=== PATIENT | female | born 2000 | race Caucasian/White ===

== ENCOUNTER 2020-10-10 17:58 | Emergency (ER) | payer OTHER, SELFPAY ==
--- OUTSIDE RECORDS SUMMARY | 2020-10-10 18:00 | XMS REPORT | Continuity of Care Document ---
:2000 Author Organization [facility] t Address [address] [place] [address] Care Team Providers Name Role Phone Lab, Fam Pob I Attending Clinician Unavailable Doctor Unassigned, Name Attending Clinician Unavailable Problems This patient has no known problems. Allergies, Adverse Reactions, Alerts This patient has no known allergies or adverse reactions. Medications This patient has no known medications. Procedures This patient has no known procedures. Encounters Start End Encounter Admission Attending Care Care Encounter Source Date/Time Date/Time Type Type Clinicians Facility Department ID 2020-03-28 2020-03-28 Laboratory Lab, [facility] [id number] 13:39:47 13:59:47 Only Fam Pob I Health [id number] [place] [id number] [place] [phone] nal [address] 2020-03-28 2020-03-28 Letter Doctor OREN [id number] 00:00:00 00:00:00 (Out) UnassignedGARY [id number] [place] [facility] [id number] [id number] Results This patient has no known results.
[2020-10-10 20:41] LABS: Urine Blood Negative (Negative); Urine Glucose Negative (Negative); Urine Protein Negative (Negative); Urine Specific Gravity 1.025 (1.005-1.030)
[2020-10-10 20:57] LABS: Absolute Lymphocytes (CBC) 2.3 K/uL (0.7-4.9); Basophils % 0.7 % (0-1.3); Hematocrit 40.1 % (36.0-45.0); Lymphocytes % 35.7 % (15.3-44.8); MPV 7.4 fL (7.6-11.3); RBC Red Blood Cell Count 4.57 M/uL (3.86-4.86)
[2020-10-10 21:06] LABS: Barbiturates NEGATIVE (NEGATIVE); Benzodiazepines NEGATIVE (NEGATIVE); Cocaine NEGATIVE (NEGATIVE); METHAMPHETAM NEGATIVE (NEGATIVE); Methadone NEGATIVE (NEGATIVE); Opiates NEGATIVE (NEGATIVE); Phencyclidine NEGATIVE (NEGATIVE); THC Cannibis NEGATIVE (NEGATIVE)
[2020-10-10 21:07] LABS: Protime INR 1.02
--- NOTE | 2020-10-10 21:15 | RAD REPORT ---
EXAM DESCRIPTION: RAD - Chest Single View - 10/10/2020 9:03 pm CLINICAL HISTORY: CHEST PAIN Chest pain. COMPARISON: No comparisons FINDINGS: Portable technique limits examination quality. The lungs are grossly clear. The heart is upper limit normal in size. No displaced fractures. IMPRESSION: No acute intrathoracic process suspected.
[2020-10-10 21:23] LABS: ALT/SGPT 27 U/L (12-78); AST/SGOT 17 U/L (15-37); Albumin 3.8 g/dL (3.4-5.0); Alkaline Phosphatase 92 U/L (45-117); BUN Blood Urea Nitrogen 9 mg/dL (7-18); Bicarbonate 24 mmol/L (21-32); Bilirubin Direct < 0.1 mg/dL (0-0.2); Bilirubin Total 0.3 mg/dL (0.2-1.0); Glucose Level 94 mg/dL (74-106); Magnesium 2.4 mg/dL (1.8-2.4); NT PRO-BNP 32 pg/mL (<125); Potassium 3.5 mmol/L (3.5-5.1); Protein, Total 7.4 g/dL (6.4-8.2); Sodium Level 140 mmol/L (136-145); Troponin (Emerg Dept Use Only) < 0.02 ng/mL (0.0-0.045)
--- NOTE | 2020-10-10 21:53 | EDPHYS ---
Physician Documentation [facility] Name: Melany Corrigan Age: 20 yrs Sex: Female : 2000 Arrival Date: 10/10/2020 Time: 17:59 Bed 8 Private MD: ED Physician Jose Vergara HPI: 10/10 20:24 This 20 yrs old Female presents to ER via Ambulatory with complaints of Chest pm1 Pain, Irregular Pulse, Nausea. 20:24 The patient presents with a history of irregular heart beat. Context: The symptoms pm1 occur without known cause. Onset: The symptoms/episode began/occurred 2 day(s) ago. Duration: The patient or guardian reports multiple episodes, the episodes last approximately 5 second(s). Modifying factors: The symptoms are aggravated by nothing. The symptoms are alleviated by nothing. Associated signs and symptoms: Pertinent positives: chest pain, nausea, Pertinent negatives: cough, fever, near-syncope, vomiting. Severity of symptoms: in the emergency department the symptoms are unchanged. The patient has not experienced similar symptoms in the past. It is unknown whether or not the patient has recently seen a physician. 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 - Social history:: Smoking status: Patient denies any tobacco usage or history of. ROS: 20:24 Constitutional: Negative for fever, chills, and weight loss. pm1 20:24 Respiratory: Negative for shortness of breath, cough, wheezing, and pleuritic chest pain. 20:24 Back: Negative for injury and pain, : Negative for injury, bleeding, discharge, and swelling, MS/Extremity: Negative for injury and deformity, Skin: Negative for injury, rash, and discoloration, Neuro: Negative for headache, weakness, numbness, tingling, and seizure. 20:24 Cardiovascular: Positive for chest pain, palpitations. 20:24 Abdomen/GI: Positive for nausea, Negative for abdominal pain, vomiting, diarrhea. Exam: 20:24 Constitutional: This is a well developed, well nourished patient who is awake, alert, pm1 and in no acute distress. Head/Face: Normocephalic, atraumatic. Chest/axilla: Normal chest wall appearance and motion. Nontender with no deformity. No lesions are appreciated. 20:24 Back: No spinal tenderness. No costovertebral tenderness. Full range of motion. Skin: Warm, dry with normal turgor. Normal color with no rashes, no lesions, and no evidence of cellulitis. MS/ Extremity: Pulses equal, no cyanosis. Neurovascular intact. Full, normal range of motion. 20:24 Cardiovascular: Exam negative for acute changes, Rate: normal, Rhythm: regular, Pulses: no pulse deficits are appreciated, Heart sounds: normal. 20:24 Respiratory: Exam negative for acute changes, respiratory distress, shortness of breath, Breath sounds: are clear throughout. 20:24 Abdomen/GI: Exam negative for acute changes, Inspection: abdomen appears normal, Palpation: abdomen is soft and non-tender, in all quadrants. 20:24 Neuro: Exam negative for acute changes, Orientation: is normal, Mentation: is normal, Motor: is normal, moves all fours. Vital Signs: 18:15 BP 137 / 93; Pulse 94; Resp 17; Temp 98.3; Pulse Ox 100% ; Weight 101.15 kg; Height 5 ll1 ft. 5 in. (165.10 cm); Pain 4/10; 20:15 BP 122 / 94; Pulse 101; Resp 18; Pulse Ox 100% on R/A; mg2 22:00 BP 123 / 81; Pulse 89; Resp 16; Pulse Ox 100% ; wh 18:15 Body Mass Index 37.11 (101.15 kg, 165.10 cm) ll1 MDM: 20:27 Patient medically screened. zehra 21:51 Data reviewed: vital signs. Data interpreted: Pulse oximetry: on room air is 100 %. pm1 Interpretation: normal. 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 10/10 20:24 Order name: Basic Metabolic Panel pm1 10/10 20:24 Order name: CBC with Diff pm10/10 20:24 Order name: LFT's pm10/10 20:24 Order name: Magnesium pm10/10 20:24 Order name: NT PRO-BNP pm10/10 20:24 Order name: PT-INR pm10/10 20:24 Order name: Troponin (emerg Dept Use Only); Complete Time: 21:27 pm1 10/10 20:24 Order name: Urine Drug Screen; Complete Time: 21:12 pm1 10/10 20:25 Order name: Basic Metabolic Panel; Complete Time: 21:27 EDMS 10/10 20:25 Order name: CBC with Automated Diff; Complete Time: 21:12 EDMS 10/10 20:25 Order name: Liver (Hepatic) Function; Complete Time: 21:27 EDMS 10/10 20:25 Order name: Magnesium; Complete Time: 21:27 EDMS 10/10 20:25 Order name: NT PRO-BNP; Complete Time: 21:27 EDMS 10/10 20:25 Order name: Protime (+INR); Complete Time: 21:12 EDMS 10/10 18:20 Order name: EKG; Complete Time: 18:20 sv 10/10 18:20 Order name: EKG - Nurse/Tech; Complete Time: 18:20 sv 10/10 20:24 Order name: XRAY Chest (1 view); Complete Time: 21:27 pm1 10/10 20:24 Order name: Cardiac monitoring; Complete Time: 21:03 pm1 10/10 20:24 Order name: IV Saline Lock; Complete Time: 21:03 pm1 10/10 20:24 Order name: Labs collected and sent; Complete Time: 21:03 pm1 10/10 20:24 Order name: O2 Per Protocol; Complete Time: 21:03 pm1 10/10 20:24 Order name: O2 Sat Monitoring; Complete Time: 21:03 pm1 10/10 20:24 Order name: Urine Dipstick-Ancillary (obtain specimen); Complete Time: 21:03 pm1 10/10 20:24 Order name: Urine Test (obtain specimen); Complete Time: 21:03 pm1 10/10 20:41 Order name: Urine Dipstick-Ancillary; Complete Time: 20:42 EDMS 10/10 20:42 Order name: TSH pm1 10/10 20:42 Order name: Thyroid Stimulating Hormone; Complete Time: 21:37 EDRI 10/10 20:47 Order name: Urine --Ancillary (enter results) mw2 Administered Medications: No medications were administered Disposition: 10/11 06:39 Co-signature as Attending Physician, Jose Vergara MD I agree with the assessment and zehra plan of care. Disposition: 10/10/20 21:52 Discharged to Home. Impression: Palpitations. - Condition is Stable. - Discharge Instructions: Palpitations. - Medication Reconciliation Form, Thank You Letter, Antibiotic Education, Prescription Opioid Use form. - Follow up: Emergency Department; When: As needed; Reason: Worsening of condition. Follow up: Private Physician; When: 2 - 3 days; Reason: Recheck today's complaints, Continuance of care, Re-evaluation by your physician. - Problem is new. - Symptoms have improved. Signatures: Dispatcher [employer] Sarah Kaufman RN RN sv Anderson, Corey, MD MD cha Marinas, Patrick, SYNTHETIC SOIL BLOCKS PULPER SYNTHETIC SOIL BLOCKS PULPER pm1 Juan A Longoria RN RN Piyush Monique RN RN ll1 Corrections: (The following items were deleted from the chart) 10/10 22:02 21:52 10/10/2020 21:52 Discharged to Home. Impression: Palpitations. Condition is wh Stable. Forms are Medication Reconciliation Form, Thank You Letter, Antibiotic Education, Prescription Opioid Use. Follow up: Emergency Department; When: As needed; Reason: Worsening of condition. Follow up: Private Physician; When: 2 - 3 days; Reason: Recheck today's complaints, Continuance of care, Re-evaluation by your physician. Problem is new. Symptoms have improved. pm1
--- NOTE | 2020-10-10 21:53 | ER ---
Nurse's Notes [facility] Name: Melany Corrigan Age: 20 yrs Sex: Female : 2000 Arrival Date: 10/10/2020 Time: 17:59 Bed 8 Private MD: Diagnosis: Palpitations Presentation: 10/10 18:06 Chief complaint: Patient states: CP, irregular pulse, nausea for 2 days. Coronavirus ll1 screen: Client denies travel out of the [place] in the last 14 days. At this time, the client does not indicate any symptoms associated with coronavirus-19. Ebola Screen: Patient denies travel to an Ebola-affected area in the 21 days before illness onset. Initial Sepsis Screen: Does the patient meet any 2 criteria? No. Patient's initial sepsis screen is negative. Does the patient have a suspected source of infection? No. Patient's initial sepsis screen is negative. Risk Assessment: Do you want to hurt yourself or someone else? Patient reports no desire to harm self or others. Onset of symptoms was October 09, 2020. 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 - Social history:: Smoking status: Patient denies any tobacco usage or history of. Screenin:16 Abuse screen: Denies threats or abuse. Denies injuries from another. Nutritional mg2 screening: No deficits noted. Tuberculosis screening: No symptoms or risk factors identified. Fall Risk None identified. Assessment: 18:20 Reassessment: Received VO from Dr Hines for EKG. sv 20:30 General: Appears in no apparent distress. Behavior is calm, cooperative, appropriate wh for age. Pain: Complains of pain in chest Pain does not radiate. Pain began suddenly. Neuro: Level of Consciousness is awake, alert, obeys commands, Oriented to person, place, time, situation, Appropriate for age. Cardiovascular: Capillary refill < 3 seconds. Cardiovascular: Rhythm is sinus rhythm. Respiratory: Respiratory: Airway is patent Respiratory effort is even, unlabored, Respiratory pattern is regular, symmetrical. GI: Abdomen is flat, non-distended. GI: Reports nausea. : EENT: No signs and/or symptoms were reported regarding the EENT system. Derm: Skin is intact, is healthy with good turgor, Skin is pink, warm \T\ dry. normal. Musculoskeletal: Circulation, motion, and sensation intact. 22:00 Reassessment: Patient appears in no apparent distress at this time. No changes from previously documented assessment. Patient and/or family updated on plan of care and expected duration. Pain level reassessed. Patient is alert, oriented x 3, equal unlabored respirations, skin warm/dry/pink. Vital Signs: 18:15 BP 137 / 93; Pulse 94; Resp 17; Temp 98.3; Pulse Ox 100% ; Weight 101.15 kg; Height 5 ll1 ft. 5 in. (165.10 cm); Pain 4/10; 20:15 BP 122 / 94; Pulse 101; Resp 18; Pulse Ox 100% on R/A; mg2 22:00 BP 123 / 81; Pulse 89; Resp 16; Pulse Ox 100% ; wh 18:15 Body Mass Index 37.11 (101.15 kg, 165.10 cm) ll1 ED Course: 17:59 Patient arrived in ED. as 18:09 Triage completed. ll1 18:09 Arm band placed on Patient notified of wait time. ll1 20:15 Frederick Castro, RN is Primary Nurse. mg2 20:16 Patient has correct armband on for positive identification. traffic monitor specialist on. Pulse mg2 ox on. NIBP on. 20:16 No provider procedures requiring assistance completed. Patient maintains SpO2 mg2 saturation greater than 95% on room air. 20:22 Sam Gilbert NP is PHCP. pm1 20:22 Jose Vergara MD is Attending Physician. pm1 20:30 Inserted saline lock: 22 gauge in right hand, using aseptic technique. Blood collected. mg2 21:03 XRAY Chest (1 view) In Process Unspecified. EDMS 22:02 IV discontinued, intact, bleeding controlled, No redness/swelling at site. Administered Medications: No medications were administered Outcome: 21:52 Discharge ordered by . pm1 22:01 Discharged to home ambulatory, with family. 22:01 Condition: stable 22:01 Discharge instructions given to patient, family, Instructed on discharge instructions, follow up and referral plans. POC Demonstrated understanding of instructions, follow-up care, POC 22:02 Patient left the ED. wh Signatures: Dispatcher [employer] EDSarah Méndez, RN RN Sandra More Patrick, SUBSTATION SUPERVISOR SUBSTATION SUPERVISOR pm1 Juan A Longoria RN RN Frederick Castro RN RN [facility] Piyush Monique RN RN ll1
[2020-10-10 22:16] LABS: Urine Specific Gravity/Preg 1.025 (1.005-1.030)
[2020-10-10 22:49] VITALS: TEMP 98.3; O2SAT 100
[2020-10-10 22:52] VITALS: BP 123/81
--- NOTE | 2020-10-11 12:48 | EKG ---
Test Date: 2020-10-10 Test Time: 18:17:44 Concrete Floater: LML MEASUREMENT RESULTS: Intervals: Rate: 94 UT: 106 QRSD: 78 QT: 346 QTc: 432 Eugene: P: 17 UT: 106 QRS: 69 T: 13 INTERPRETIVE STATEMENTS: Sinus rhythm with short UT Low voltage QRS Borderline ECG Compared to ECG 04/01/2016 22:17:31 Short UT interval now present Low QRS voltage now present Prolonged QT interval no longer present Electronically Signed On 10-11-20 12:45:32 CDT by Heath Tay
== END 2020-10-10 22:02 | disposition home or self-care (01) ==
LOC: ER 17:58
DX: R00.2 Palpitations (principal)
CPT/HCPCS: 36415; 71045; 80048; 80076; 80307; 81003; 81025; 83735; 83880; 84443; 84484; 85025; 85610; 93005; 99285

== ENCOUNTER 2021-01-29 19:56 | Emergency (ER) | payer OTHER, SELFPAY ==
--- OUTSIDE RECORDS SUMMARY | 2021-01-29 19:59 | XMS REPORT | Continuity of Care Document ---
:2000 Author Organization [facility] t Address [address] [place] [address] Care Team Providers Name Role Phone Sixto Trinh Attending Clinician Unavailable Lab, Fam Pob I Attending Clinician Unavailable Doctor Unassigned, Name Attending Clinician Unavailable Physician, Primary or Family Admitting Clinician Unavailabl e Payers Payer Name Policy Type Policy Number Effective Date Expiration Date S ource Problems This patient has no known problems. Allergies, Adverse Reactions, Alerts This patient has no known allergies or adverse reactions. Medications This patient has no known medications. Procedures This patient has no known procedures. Encounters Start End Encounter Admission Attending Care Care Encounter Source Date/Time Date/Time Type Type Clinicians Facility Department ID 2021-01-18 2021-01-18 Outpatient NAOMI Trinh CARLOSWU OUTD [id number] [facility] 12:48:00 12:48:00 Moshe [id number] [facility] 2020-03-28 2020-03-28 Laboratory Lab, [facility] [id number] 13:39:47 13:59:47 Only Fam Pob I Health [id number] [place] [id number] [place] [phone] nal [address] 2020-03-28 2020-03-28 Letter Doctor LOTT [id number] 00:00:00 00:00:00 (Out) Unassigned, GARY [id number] [place] [facility] [id number] 044 Results This patient has no known results.
== END 2021-01-29 21:40 | disposition left against medical advice (07) ==
LOC: ER 19:56
DX: Z02.9 Encounter for administrative examinations, unspecified (principal)

== ENCOUNTER 2022-02-01 19:30 | Emergency (ER) | payer OTHER, SELFPAY ==
[2022-02-01] MEDS ORDERED: PROMETHAZINE INJ 25 MG/ML AMP ONE ×2 (20:06→23:58)
[2022-02-01] MEDS ORDERED: NA CHLORIDE 0.9% 1,000 ML ONE ×2 (20:06→21:31)
[2022-02-01 20:14] LABS: Urine Blood Negative (Negative); Urine Glucose Negative (Negative); Urine Protein 1+ (Negative); Urine Specific Gravity >=1.030 (1.005-1.030)
[2022-02-01 20:24] LABS: Absolute Lymphocytes (CBC) 0.8 K/uL (0.7-4.9); Lymphocytes % 8.8 % (15.3-44.8); MCV 88.8 fL (80-100); MPV 7.1 fL (7.6-11.3); RBC Red Blood Cell Count 4.84 M/uL (3.86-4.86)
[2022-02-01 20:37] LABS: Potassium 3.5 mmol/L (3.5-5.1)
--- NOTE | 2022-02-01 23:09 | EDPHYS ---
Physician Documentation [facility] Name: Melany Corrigan Age: 21 yrs Sex: Female : 2000 Arrival Date: 02/01/2022 Time: 19:31 Bed 11 Private MD: ED Physician Harry Chavez HPI: 02/01 23:23 This 21 yrs old Female presents to ER via Ambulatory with complaints of Nausea/Vomiting kb - 13 wks preg. 23:23 The patient has not experienced similar symptoms in the past. The patient has not kb recently seen a physician. 23:23 The patient presents to the emergency department with nausea and vomiting, that started kb yesterday. The estimated gestational age is 13 weeks. course: care: private OB physician, Dr. Velasquez, Leakage of Fluid: none appreciated, Ultrasound: the patient had an ultrasound, which was normal, Risk/complications: no obvious risks or complications are appreciated. Previous pregnancies: the patient has never been . Associated signs and symptoms: Pertinent positives: nausea, vomiting, Pertinent negatives: abdominal pain, vaginal bleeding. Pt reports she has been unable to tolerate anything by mouth since yesterday. Reports she is still urinating. States she has had problems with this on and off since beginning of . Dr. Velasquez has prescribed Zofran, but it has not worked today.. 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 - Social history:: Smoking status: Patient denies any tobacco usage or history of. ROS: 23:18 Constitutional: Negative for fever, chills, and weight loss. kb 23:18 Abdomen/GI: Positive for nausea and vomiting, Negative for abdominal pain. 23:18 All other systems are negative. Exam: 23:18 Constitutional: This is a well developed, well nourished patient who is awake, alert, kb and in no acute distress. Head/Face: Normocephalic, atraumatic. ENT: Moist Mucous membranes Cardiovascular: Regular rate and rhythm with a normal S1 and S2. No gallops, murmurs, or rubs. No pulse deficits. Respiratory: Respirations even and unlabored. No increased work of breathing. Talking in full sentences Abdomen/GI: Soft, non-tender. No distention Skin: Warm, dry with normal turgor. Normal color. MS/ Extremity: Pulses equal, no cyanosis. Neurovascular intact. Full, normal range of motion. Neuro: Awake and alert, GCS 15, oriented to person, place, time, and situation. Moves all extremities. Normal gait. Psych: Awake, alert, with orientation to person, place and time. Behavior, mood, and affect are within normal limits. Vital Signs: 19:50 BP 127 / 80; Pulse 94; Resp 18; Temp 96.8(T); Pulse Ox 100% ; Weight 102.06 kg; Height tw5 5 ft. 5 in. (165.10 cm); Pain 0/10; 22:00 BP 116 / 65; Pulse 88; Resp 16; Pulse Ox 100% on R/A; jb4 23:00 BP 121 / 83; Pulse 88; Resp 16; Pulse Ox 100% on R/A; jb4 19:50 Body Mass Index 37.44 (102.06 kg, 165.10 cm) tw5 MDM: 19:54 Patient medically screened. kb 23:17 Data reviewed: vital signs, nurses notes. Data interpreted: Pulse oximetry: on room air kb is 100 %. Interpretation: normal. Counseling: I had a detailed discussion with the patient and/or guardian regarding: the historical points, exam findings, and any diagnostic results supporting the discharge/admit diagnosis, lab results, the need for outpatient follow up, an OB/Gyne specialist, to return to the emergency department if symptoms worsen or persist or if there are any questions or concerns that arise at home. ED course: Patient tolerating p.o. intake. States she is feeling better.. 02/01 19:54 Order name: CBC with Diff; Complete Time: 20:29 kb 02/01 19:54 Order name: Basic Metabolic Panel; Complete Time: 20:43 kb 02/01 20:14 Order name: Urine Dipstick-Ancillary; Complete Time: 20:29 [facility] 02/01 19:54 Order name: Urine Dipstick-Ancillary (obtain specimen); Complete Time: 22:35 02/01 19:54 Order name: IV Start; Complete Time: 20:08 02/01 19:54 Order name: FHT's; Complete Time: 22:32 kb Administered Medications: 20:08 Drug: NS 0.9% 1000 ml Route: IV; Rate: 1000 ml; Site: right antecubital; tw5 23:50 Follow up: Response: No adverse reaction; IV Status: Completed infusion; IV Intake: tw5 1000ml 20:08 Drug: Phenergan (promethazine) 6.25 mg Route: IVP; Site: right antecubital; tw5 22:32 Follow up: Response: No adverse reaction; Marked relief of symptoms jb4 21:34 Drug: NS 0.9% 1000 ml Route: IV; Rate: 1000 ml; Site: right antecubital; jb4 22:32 Follow up: Response: No adverse reaction; IV Status: Completed infusion jb4 23:55 Drug: Phenergan (promethazine) 25 mg Route: IM; Site: right ventrogluteal; tw5 23:56 Follow up: Response: No adverse reaction; Medication administered at discharge. tw5 Disposition: 02/02 05:58 Co-signature as Attending Physician, Harry Chavez MD. [email or web address] Disposition Summary: 02/01/22 23:08 Discharge Ordered Location: Home kb Condition: Stable kb Diagnosis - Vomiting of , unspecified kb Followup: kb - With: Emergency Department - When: As needed - Reason: Worsening of condition Followup: kb - With: Private Physician - When: 2 - 3 days - Reason: Recheck today's complaints, Continuance of care, Re-evaluation by your physician Discharge Instructions: - Discharge Summary Sheet kb - Morning Sickness, Ievb-pd-Wles kb Forms: - Medication Reconciliation Form kb - Thank You Letter kb - Antibiotic Education kb - Prescription Opioid Use kb Prescriptions: - promethazine 12.5 mg Rectal suppository - insert 1 suppository by RECTAL route every 6 hours As needed; 12 suppository; kb Refills: 0, Product Selection Permitted Signatures: Dispatcher [employer] Valeria Ramirez FNP-C JEFF-Sergio Engel RN RN jb4 Harry Chavez MD MD mh7 Maria Luisa Coronado tw5
--- NOTE | 2022-02-01 23:09 | ER ---
Nurse's Notes [facility] Name: Melany Corrigan Age: 21 yrs Sex: Female : 2000 Arrival Date: 02/01/2022 Time: 19:31 Bed 11 Private MD: Diagnosis: Vomiting of , unspecified Presentation: 02/01 19:50 Chief complaint: Patient states: "I have not been able to keep anything down. I am 13 tw5 weeks .". Coronavirus screen: Vaccine status: Patient reports receiving the 2nd dose of the covid vaccine. Moderna. Ebola Screen: Patient negative for fever greater than or equal to 101.5 degrees Fahrenheit, and additional compatible Ebola Virus Disease symptoms Patient denies exposure to infectious person. Patient denies travel to an Ebola-affected area in the 21 days before illness onset. Initial Sepsis Screen: Does the patient meet any 2 criteria?. Initial Sepsis Screen: Does the patient meet any 2 criteria? Does the patient have a suspected source of infection? No. Patient's initial sepsis screen is negative. Risk Assessment: Do you want to hurt yourself or someone else? Patient reports no desire to harm self or others. Onset of symptoms was January 31, 2022 at 20:00. 19:50 Method Of Arrival: Ambulatory tw5 19:50 Acuity: JAVIER 4 tw5 Triage Assessment: 19:54 General: Appears in no apparent distress. Behavior is calm, cooperative, appropriate tw5 for age. Pain: Denies pain. GI: Reports nausea, tolerance of fluids, tolerance of food, vomiting. 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 - Social history:: Smoking status: Patient denies any tobacco usage or history of. Screenin:30 Abuse screen: Denies threats or abuse. Nutritional screening: No deficits noted. jb4 Tuberculosis screening: No symptoms or risk factors identified. Fall Risk None identified. Assessment: 20:30 General: Appears in no apparent distress. uncomfortable, Behavior is calm, cooperative, jb4 appropriate for age. Pain: Denies pain. Neuro: Level of Consciousness is awake, alert, obeys commands, Oriented to person, place, time, situation. Cardiovascular: Patient's skin is warm and dry. Respiratory: Airway is patent Respiratory effort is even, unlabored, Respiratory pattern is regular, symmetrical. GI: Abdomen is round non-distended, Reports nausea, vomiting. Derm: Skin is intact, Skin is pink, warm \\T\\ dry. Musculoskeletal: Circulation, motion, and sensation intact. Range of motion: intact in all extremities. 22:00 Reassessment: Patient appears in no apparent distress at this time. Patient and/or jb4 family updated on plan of care and expected duration. Pain level reassessed. Patient is alert, oriented x 3, equal unlabored respirations, skin warm/dry/pink. Patient states feeling better. Patient states symptoms have improved. 22:54 Reassessment: Patient appears in no apparent distress at this time. Patient and/or jb4 family updated on plan of care and expected duration. Pain level reassessed. Patient is alert, oriented x 3, equal unlabored respirations, skin warm/dry/pink. 23:30 Reassessment: Patient appears in no apparent distress at this time. Patient and/or jb4 family updated on plan of care and expected duration. Pain level reassessed. Patient is alert, oriented x 3, equal unlabored respirations, skin warm/dry/pink. Vital Signs: 19:50 BP 127 / 80; Pulse 94; Resp 18; Temp 96.8(T); Pulse Ox 100% ; Weight 102.06 kg; Height tw5 5 ft. 5 in. (165.10 cm); Pain 0/10; 22:00 BP 116 / 65; Pulse 88; Resp 16; Pulse Ox 100% on R/A; jb4 23:00 BP 121 / 83; Pulse 88; Resp 16; Pulse Ox 100% on R/A; jb4 19:50 Body Mass Index 37.44 (102.06 kg, 165.10 cm) tw5 Vitals: 22:34 Heart Tones 173. jb4 ED Course: 19:31 Patient arrived in ED. am2 19:36 [facility] Chad[facility]C [facility] kb 19:36 Harry Chavez MD is Attending Physician. kb 19:54 Triage completed. tw5 19:54 Arm band placed on right wrist. tw5 20:08 Initial lab(s) drawn, by me, sent to lab. Inserted saline lock: 20 gauge in right tw5 antecubital area, using aseptic technique. Blood collected. 20:30 Patient has correct armband on for positive identification. Bed in low position. Call jb4 light in reach. Side rails up X 1. Client placed on continuous cardiac and pulse oximetry monitoring. NIBP monitoring applied. 22:52 Sergio Faulkner, RN is Primary Nurse. jb4 23:00 No provider procedures requiring assistance completed. IV discontinued, intact, jb4 bleeding controlled, No redness/swelling at site. Pressure dressing applied. Administered Medications: 20:08 Drug: NS 0.9% 1000 ml Route: IV; Rate: 1000 ml; Site: right antecubital; tw5 23:50 Follow up: Response: No adverse reaction; IV Status: Completed infusion; IV Intake: tw5 1000ml 20:08 Drug: Phenergan (promethazine) 6.25 mg Route: IVP; Site: right antecubital; tw5 22:32 Follow up: Response: No adverse reaction; Marked relief of symptoms jb4 21:34 Drug: NS 0.9% 1000 ml Route: IV; Rate: 1000 ml; Site: right antecubital; jb4 22:32 Follow up: Response: No adverse reaction; IV Status: Completed infusion jb4 23:55 Drug: Phenergan (promethazine) 25 mg Route: IM; Site: right ventrogluteal; tw5 23:56 Follow up: Response: No adverse reaction; Medication administered at discharge. tw5 Medication: 22:00 VIS not applicable for this client. jb4 Intake: 23:50 IV: 1000ml; Total: 1000ml. tw5 Outcome: 23:08 Discharge ordered by . kb 23:32 Discharged to home ambulatory, with family. jb4 23:32 Condition: stable 23:32 Discharge instructions given to patient, Instructed on discharge instructions, follow up and referral plans. Demonstrated understanding of instructions, follow-up care. 23:32 Patient left the ED. jb4 07/30 00:10 Patient left the ED. tw5 Signatures: Valeria Chadwick, SHERRI AGUILAR-Sergio Engel RN RN jb4 Romy Alvarenga Tiffany tw5
[2022-02-02 02:03] VITALS: TEMP 96.8; O2SAT 100
[2022-02-02 02:40] VITALS: BP 121/83
== END 2022-02-02 00:10 | disposition home or self-care (01) ==
LOC: ER 19:30
DX: O21.9 Vomiting of pregnancy, unspecified (principal); O99.411 Diseases of the circulatory system complicating pregnancy, first trimester; I47.1 Supraventricular tachycardia; Z3A.14 14 weeks gestation of pregnancy
CPT/HCPCS: 85025; 80048; 36415; 81003; J2550 ×2; J7030 ×2; 96361; 96372; 96374; 99284

== ENCOUNTER 2022-12-12 11:08 | Emergency (ER) | payer BC ==
--- OUTSIDE RECORDS SUMMARY | 2022-12-12 11:14 | XMS REPORT | Continuity of Care Document ---
:2000 Author Organization [facility] t Address [address] [place] [address] [place] [id number] Care Team Providers Name Role Phone PCP, PATIENT DOES NOT HAVE A Primary Care Physician Unavaila VIVIENNE Walters Attending Clinician Unavailable Vivienne Caballero MD Attending Clinician Ralph SONI, [place] Attending Clinician Doctor Unassigned, [place] Attending Clinician Unavailable Nurse, [facility] Attending Clinician Unavailable Wilian Beverly MD Attending Clinician [phone], [facility] Attending Clinician Unavailable Ultrasound, Ang[facility] Attending Clinician Unavailable Luther Agrawal MD Attending Clinician LUTHER AGRAWLA Attending Clinician Unavailable Ultrasound, [facility] Mfm Attending Clinician Unavailable Shyann Good MD Attending Clinician SHYANN GOOD Attending Clinician Unavailable YOVANI VELASQUEZ Attending Clinician Unavailable Yovani Velasquez MD Attending Clinician Jo-Ann Grady RN Attending Clinician Unavailable CAMERON LANZA Attending Clinician Unavailable Mariah Nieto MA Attending Clinician Unavailable Moshe Trinh Attending Clinician Unavailable Lab, [facility] Fam Pob I Attending Clinician Unavailable Becca Lamb Attending Clinician BECCA PICHARDO Attending Clinician Unavailable VIVIENNE CABALLERO Admitting Clinician Unavailable Adum Vivienne PADRON Admitting Clinician Physician, No Primary or Family Admitting Clinician Unavaila ble Payers Payer Name Policy Type Policy Number Effective Date Expiration Date S zeny [employer]AYMUNDO [employer] BLUE [id number] 2022 ADVANTAGE HMO 00:00:00 [facility] [id number] 2021 PPO 00:00:00 Problems Condition Condition Condition Status Onset Resolution Last Treating Co mments Source Name Details Category Date Date Treatment Clinician Date Essential Essential Disease Active Uni vers hypertensi hypertensi 2-19 [place] [facility] Liveborn Liveborn Disease Active Unive rs infant, of , of 1-26 [place] y [place] , , 00 [place] born in born in [facility] by vaginal by vaginal delivery delivery Encounter Encounter Disease Active Uni vers for for 1-25 ity of routine routine 00:00: [place] 00 Me dical follow-up follow-up Bran ch BMI BMI Disease Active 2021-07 Univers 35.0-35.9, 35.0-35.9, 1-11 it y of adult adult 00:00: [place] [facility] 25 weeks 25 weeks Disease Active 2021-07 Unive rs gestation gestation 0-19 ity of of of 00:00: [place] 00 [facility] Supervisio Supervisio Disease Active 2021-07 U lisa n of high n of high 0-19 ity of risk risk 00:00: [place] 00 [facility] in second in second Bran ch trimester trimester 39 weeks 39 weeks Disease Active 2021-07 Unive rs gestation gestation 0-19 ity of of of 00:00: [place] 00 [facility] Obesity in Obesity in Disease Active 2022-0 U nivers 6-17 ity of 00:00: [place] 00 [facility] Nausea and Nausea and Disease Active U nivers vomiting vomiting 5-26 ity of in in 00:00: [place] 00 [facility] Branch Atrial Atrial Disease Active Univers tachycardi tachycardi 5-26 it y of a a 00:00: [place] 00 Medical [place] Paroxysmal Paroxysmal Disease Active U nivers atrial atrial ity of fibrillati fibrillati [place] on [place] Allergies, Adverse Reactions, Alerts Allergy Allergy Status Severity Reaction(s) Onset Inactive Treating Comm ents Source Name Type Date Date Clinician Codeine Propensi Active Shortness of U nivers ty to Breath - ity of adverse 00:00: [place] reaction 00 [facility] CODEINE DRUG Active SOB Univers INGREDI 5- ity of 00:00: [place] 00 [facility] Social History Social Habit Start Date Stop Date Quantity Comments Source ASSERTION 2021-11-13 [facility] 00:00:00 [facility] Exposure to 2022-08-31 2022-09-10 Not sure [facility] SARS-CoV-2 00:00:00 10:45:00 [place] [facility] (event) [place] Alcohol intake 2022-08-06 2022-08-06 Ex-drinker [facility] 00:00:00 00:00:00 (finding) [facility] Tobacco use and 2022-01-21 2022-01-21 Smokeless tobacco Un iversity of exposure 00:00:00 00:00:00 non-user [facility] Sex Assigned At 2000 2000 Universit y of 00:00:00 00:00:00 [facility] Smoking Status Start Date Stop Date Source Never smoked tobacco [facility] Medications Ordered Filled Start Stop Current Ordering Indication Dosage Frequency Signature Comments Components Source Medication Medication Date Date Medication? Clinician (SIG) Name Name methylergon 2022- No .2mg 0.2 mg, Un zhang ovine 08-02 Intramuscu ity of (METHERGINE 02:45: 01:35 lar, ONCE, [place] ) injection 00 :00 1 dose, On Me dical 0.2 mg [place] [facility] 08/01/22 at 2045, Routine ibuprofen Yes 600mg 600 mg, Univ ers (IBU) 08-02 Oral, ity of tablet 600 01:39: Q6HPRN[place] mg 12 Starting Medical on [facility] 08/01/22 at 1939, Until Discontinu ed, Routine, Pain (scale 4-6) acetaminoph 2022-0 Yes 650mg 650 mg, Un zhang en 08-02 Oral, ity of (TYLENOL) 01:39: Q6HPRN, [place] tablet 650 12 Starting Medic al mg on [facility] 08/01/22 at 193, Until Discontinu ed, Routine, Pain (scale 1-3) diphenhydrA 2022-0 Yes 25mg 25 mg, Univ ers MINE 08-02 Oral, ity of (BENADRYL) 01:39: Q6HPRN, [place] tablet 25 12 Starting Medica l mg on [facility] 08/01/22 at 193, Until Discontinu ed, Routine, Sleep, Itching ondansetron 2022-0 Yes 4mg 4 mg, Slow Univers (ZOFRAN 08-02 IV Push, ity of (PF)) 01:39: Q8HPRN, [place] injection 4 12 Starting Medi truman mg on [facility] 08/01/22 at 193, Until Discontinu ed, Routine, Nausea and Vomiting (N/V) simethicone 0 Yes 160mg 160 mg, Un zhang (GAS RELIEF 08-02 Oral, ity of (SIMETHICON 01:39: PC+HSPRN, [place] E)) 12 Starting Medical chewable on [facility] tablet 160 08/01/22 at mg 1938, Until Discontinu ed, Routine, Gas docusate 0 Yes 200mg 200 mg, Unive rs (COLACE) 08-02 Oral, ity of capsule 200 01:39: QDAILYPRN, [place] mg 12 Starting Medical on [facility] 08/01/22 at 1939, Until Discontinu ed, Routine, Constipati on magnesium 2022-0 Yes 30mL 30 mL, Univer s hydroxide 08-02 Oral, ity of (MILK OF 01:39: QDAILYPRN, [place] MAGNESIA) 12 Starting Medica l 400 mg/5 mL on [facility] suspension 08/01/22 at 30 mL 1938, Until Discontinu ed, Routine, Constipati on benzocaine- 2022-0 Yes Topical, Un zhang menthol 1-27 PRN, ity of (DERMOPLAST 01:39: [place] 20-0.5 % 11 on [place] [facility] topical 08/01/22 at Branch spray 1938, Until Discontinu ed, Routine, Perineum discomfort ibuprofen 2022-0 Yes [id number] 600mg Take 1 Univers 600 mg 1-27 102 tablet by ity of tablet 00:00: mouth [place] 00 every 6 Medical (six) Branch hours as needed (Pain). Take with food or milk. ibuprofen 2022-0 Yes [id number] 600mg Take 1 Univers 600 mg 1-27 102 tablet by ity of tablet 00:00: mouth [place] 00 every 6 Medical (six) Branch hours as needed (Pain). Take with food or milk. ibuprofen 2022-0 Yes [id number] 600mg Take 1 Univers 600 mg 1-27 102 tablet by ity of tablet 00:00: mouth [place] 00 every 6 Medical (six) Branch hours as needed (Pain). Take with food or milk. ibuprofen 2022-0 Yes [id number] 600mg Take 1 Univers 600 mg 1-27 102 tablet by ity of tablet 00:00: mouth [place] 00 every 6 Medical (six) Branch hours as needed (Pain). Take with food or milk. ibuprofen 2022-0 Yes [id number] 600mg Take 1 Univers 600 mg 1-27 102 tablet by ity of tablet 00:00: mouth [place] 00 every 6 Medical (six) Branch hours as needed (Pain). Take with food or milk. ibuprofen 2022-0 Yes [id number] 600mg Take 1 Univers 600 mg 1-27 102 tablet by ity of tablet 00:00: mouth [place] 00 every 6 Medical (six) Branch hours as needed (Pain). Take with food or milk. ibuprofen 2022-0 Yes [id number] 600mg Take 1 Univers 600 mg 1-27 102 tablet by ity of tablet 00:00: mouth [place] 00 every 6 Medical (six) Branch hours as needed (Pain). Take with food or milk. fentaNYL-ro 2022-0 2022- No Epidural, Univers pivacaine 2 08-01 ONCE INTRA i ty of mcg/mL-0.1 14:54: 03:10 PROCEDURE, [place] % (PF) in 00 :57 Starting Medica l NS 200 mL on [place] [facility] epidural 08/01/22 at infusion 0854, RTU Until [place] 08/01/22 at 2110, Routine, Intra-op fentaNYL-ro 2023-0 202- No Epidural, Univers pivacaine 2 08-01 CONTINUOUS i ty of mcg/mL-0.1 14:54: 03:10 PRN, [place] % (PF) in 00 :57 Starting Medica l NS 200 mL on [place] [facility] epidural 08/01/22 at infusion 0854, RTU Until [place] 08/01/22 at 2110, Routine, Intra-op fentaNYL-ro 3-0 2022- No Epidural, Univers pivacaine 2 08-01 ONCE INTRA i ty of mcg/mL-0.1 14:54: 03:10 PROCEDURE, [place] % (PF) in 00 :57 Starting Medica l NS 200 mL on [place] [facility] epidural 08/01/22 at infusion 0854, RTU Until [place] 08/01/22 at 0, Routine, Intra-op fentaNYL-ro 3-0 2022- No Epidural, Univers pivacaine 2 08-01 CONTINUOUS i ty of mcg/mL-0.1 14:54: 03:10 PRN, [place] % (PF) in 00 :57 Starting Medica l NS 200 mL on [place] [facility] epidural 08/01/22 at infusion 0854, RTU Until [place] 08/01/22 at 2110, Routine, Intra-op fentaNYL-ro 3-0 2022- No Epidural, Univers pivacaine 2 08-01 ONCE INTRA i ty of mcg/mL-0.1 14:54: 03:10 PROCEDURE, [place] % (PF) in 00 :57 Starting Medica l NS 200 mL on [place] [facility] epidural 08/01/22 at infusion 0854, RTU Until [place] 08/01/22 at 0, Routine, Intra-op fentaNYL-ro 2023-0 202- No Epidural, Univers pivacaine 2 08-01 CONTINUOUS i ty of mcg/mL-0.1 14:54: 03:10 PRN, [place] % (PF) in 00 :57 Starting Medica l NS 200 mL on [place] [facility] epidural 08/01/22 at infusion 0854, RTU Until [place] 08/01/22 at 2110, Routine, Intra-op lidocaine-e 2022- No Intraderma Univers pinephrine 08-01 l, ONCE ity o f (XYLOCAINE 14:46: 03:10 INTRA [place] W/EPINEPHRI 00 :57 PROCEDURE, Me dical NE) 1.5 Starting Branch %-1:200,000 on [place] injection 08/01/22 at 0846, Until [place] 08/01/22 at 2109, Routine, Intra-op lidocaine-e 2022- No Intraderma Univers pinephrine 08-01 l, ONCE ity o f (XYLOCAINE 14:46: 03:10 INTRA [place] W/EPINEPHRI 00 :57 PROCEDURE, Me dical NE) 1.5 Starting Branch %-1:200,000 on [place] injection 08/01/22 at 0846, Until [place] 08/01/22 at 2109, Routine, Intra-op lidocaine-e 2022- No Intraderma Univers pinephrine 08-01 l, ONCE ity o f (XYLOCAINE 14:46: 03:10 INTRA [place] W/EPINEPHRI 00 :57 PROCEDURE, Me dical NE) 1.5 Starting Branch %-1:200,000 on [place] injection 08/01/22 at 0846, Until [place] 08/01/22 at 2109, Routine, Intra-op penicillin 2022- No 310 3 Million U nivers g pot in 08-01 Units, IV ity o f dextrose 3 05:00: 01:40 Piggyback, [place] million 00 :13 Q4H ABX, Medical unit/50 mL First dose Bra nhh RTU iv on Fri piggyback 3 07/31/22 at Million 2300, Units Until Discontinu ed, Administer over 60 Minutes, 50 mL
Reas on for Anti-Infec tive: Empiric Non-Surgic al Prophylaxi s
Durat ion of therapy: 72 hours
S pecific indication : GBS prophylaxi s penicillin 2022- No 510 5 Million U nivers g potassium 08-01 Units, IV it y of 5 Million 00:45: 07:17 [place], [place] Units in 00 :00 ONCE, 1 Medical NaCl 0.9% dose, On Branch (NS) 100 mL Wed MINI-BAG 07/31/22 at 1845, Administer over 60 Minutes, 100 mL
Reas on for Anti-Infec tive: Empiric Non-Surgic al Prophylaxi s
Durat ion of therapy: 72 hours
S pecific indication : GBS prophylaxi s misoprostol 2022- No 25ug 25 mcg, Un zhang (CYTOTEC) 07-31 Oral, ity of quarter-tab 22:15: 23:17 ONCE, 1 [place] let 25 mcg 00 :00 dose, On Medic al Wed Branch 07/31/22 at 1615, Routine FENTanyl PF 2022- No 100ug 100 mcg, Univers (SUBLIMAZE 07-31 Slow IV ity o f (PF)) 22:14: 01:40 Push, [place] injection 40 :13 Q1HPRN, Medical 100 mcg Starting Branch on Fri07/31/22 at 1614, Until [place] 08/01/22 at 1940, Routine, Pain (scale 4-6), Pain (scale 7-10) misoprostol 2022- No 25ug 25 mcg, Un zhang (CYTOTEC) 07-31 Vaginal, ity o f quarter-tab 22:12: 01:40 Q4HPRN, 4 [place] let 25 mcg 00 :13 doses, Medical Starting Branch on Fri07/31/22 at 1612, Until [place] 08/01/22 at 1940, Routine, Cervical rippening oxytocin 2022- No 2mU/min at 2-40 Un zhang (PITOCIN) 07-31 mL/hr, IV ity of 30 units in 22:12: 01:40 Infusion, [place] NS 500 mL 00 :13 TITRATE, Medica l IV infusion Starting Bran ch on Fri07/31/22 at 1612, Until [place] 08/01/22 at 1940, Routine lactated 2022- No 500mL at 999 Unive rs ringers IV 07-31 mL/hr, 500 it y of infusion 22:12: 01:40 mL, IV [place] 500 mL 00 :13 Infusion, Medical PRN - SEE Branch INSTRUCTIO NS, Starting on Fri07/31/22 at 1612, Until [place] 08/01/22 at 1940, Routine D5W-LR IV 2022- No 1000mL at 1-125 U nivers infusion 07-31 01-27 mL/hr, IV ity o f 1,000 mL 22:12: 01:40 Infusion, [place] 00 :13 TITRATE, Medical Starting Branch on Fri07/31/22 at 1612, Until [place] 08/01/22 at 1940, Routine sodium 2022- No 30mL 30 mL, Univers citrate-cit 07-31 Oral, ity of roxana acid 22:12: 13:59 PRE-PROCED [place] (BICITRA) 00 :00 URE ONCE, Medic al 500-334 1 dose, Branch mg/5 mL Starting solution 30 on Fri mL 07/31/22 at 1612, Until Discontinu ed, Routine, Surgery/Pr ocedure aspirin 81 2021-0 Yes [id number] 81mg Take 1 U nivers mg EC 8-18 tablet by ity of tablet 00:00: mouth in [place] [address] the Medical morning. Branch aspirin 81 2021-0 Yes [id number] 81mg Take 1 U nivers mg EC 8-18 tablet by ity of tablet 00:00: mouth in [place] [address] the Medical morning. Branch aspirin 81 2021-0 Yes [id number] 81mg Take 1 U nivers mg EC 8-18 tablet by ity of tablet 00:00: mouth in [place] the Medical morning. Branch aspirin 81 2021-0 Yes [id number] 81mg Take 1 U nivers mg EC 8-18 tablet by ity of tablet 00:00: mouth in [place] the Medical morning. Branch aspirin 81 2021-0 Yes [id number] 81mg Take 1 U nivers mg EC 8-18 tablet by ity of tablet 00:00: mouth in [place] the Medical morning. Branch aspirin 81 2021-0 Yes [id number] 81mg Take 1 U nivers mg EC 8-18 tablet by ity of tablet 00:00: mouth in [place] [address] the Medical morning. [place] aspirin 81 2021-0 Yes [id number] 81mg Take 1 U nivers mg EC 8-18 tablet by ity of tablet 00:00: mouth in [place] 00 the Medical morning. Branch aspirin 81 2022-0 Yes [id number] 81mg Take 1 U nivers mg EC 8-18 tablet by ity of tablet 00:00: mouth in [place] 00 the Medical morning. Branch aspirin 81 2022-0 Yes [id number] 81mg Take 1 U nivers mg EC 8-18 tablet by ity of tablet 00:00: mouth in [place] 00 the Medical morning. Branch aspirin 81 2022-0 Yes [id number] 81mg Take 1 U nivers mg EC 8-18 tablet by ity of tablet 00:00: mouth in [place] 00 the Medical morning. Branch aspirin 81 2022-0 Yes [id number] 81mg Take 1 U nivers mg EC 8-18 tablet by ity of tablet 00:00: mouth in [place] 00 the Medical morning. Branch aspirin 81 2022-0 Yes [id number] 81mg Take 1 U nivers mg EC 8-18 tablet by ity of tablet 00:00: mouth in [place] 00 the Medical morning. Branch aspirin 81 2-0 Yes [id number] 81mg Take 1 U nivers mg EC 8-18 tablet by ity of tablet 00:00: mouth in [place] 00 the Medical morning. Branch aspirin 81 2-0 Yes [id number] 81mg Take 1 U nivers mg EC 8-18 tablet by ity of tablet 00:00: mouth in [place] 00 the Medical morning. Branch aspirin 81 2022-0 Yes [id number] 81mg Take 1 U nivers mg EC 8-18 tablet by ity of tablet 00:00: mouth in [place] 00 the Medical morning. Branch aspirin 81 2022-0 Yes [id number] 81mg Take 1 U nivers mg EC 8-18 tablet by ity of tablet 00:00: mouth in [place] 00 the Medical morning. Branch aspirin 81 2022-0 Yes [id number] 81mg Take 1 U nivers mg EC 8-18 tablet by ity of tablet 00:00: mouth in [place] 00 the Medical morning. Branch aspirin 81 2022-0 Yes [id number] 81mg Take 1 U nivers mg EC 8-18 tablet by ity of tablet 00:00: mouth in [place] 00 the Medical morning. Branch aspirin 81 2022-0 Yes [id number] 81mg Take 1 U nivers mg EC 8-18 tablet by ity of tablet 00:00: mouth in [place] 00 the Medical morning. Branch aspirin 81 2-0 Yes [id number] 81mg Take 1 U nivers mg EC 8-18 tablet by ity of tablet 00:00: mouth in [place] 00 the Medical morning. Branch aspirin 81 2022-0 Yes [id number] 81mg Take 1 U nivers mg EC 8-18 tablet by ity of tablet 00:00: mouth in [place] 00 the Medical morning. Branch aspirin 81 2-0 Yes [id number] 81mg Take 1 U nivers mg EC 8-18 tablet by ity of tablet 00:00: mouth in [place] 00 the Medical morning. Branch aspirin 81 2-0 Yes [id number] 81mg Take 1 U nivers mg EC 8-18 tablet by ity of tablet 00:00: mouth in [place] 00 the Medical morning. Branch aspirin 81 2-0 Yes [id number] 81mg Take 1 U nivers mg EC 8-18 tablet by ity of tablet 00:00: mouth in [place] 00 the Medical morning. Branch aspirin 81 2021-0 Yes [id number] 81mg Take 1 U nivers mg EC 8-18 tablet by ity of tablet 00:00: mouth in [place] 00 the Medical morning. Branch aspirin 81 2021-0 Yes [id number] 81mg Take 1 U nivers mg EC 8-18 tablet by ity of tablet 00:00: mouth in [place] 00 the Medical morning. Branch aspirin 81 2-0 Yes [id number] 81mg Take 1 U nivers mg EC 8-18 tablet by ity of tablet 00:00: mouth in [place] 00 the Medical morning. Branch aspirin 81 2-0 Yes [id number] 81mg Take 1 U nivers mg EC 8-18 tablet by ity of tablet 00:00: mouth in [place] 00 the Medical morning. Branch aspirin 81 2022-0 Yes [id number] 81mg Take 1 U nivers mg EC 8-18 tablet by ity of tablet 00:00: mouth in [place] 00 the Medical morning. Branch aspirin 81 2022-0 Yes [id number] 81mg Take 1 U nivers mg EC 8-18 tablet by ity of tablet 00:00: mouth in [place] 00 the Medical morning. Branch aspirin 81 2022-0 Yes [id number] 81mg Take 1 U nivers mg EC 8-18 tablet by ity of tablet 00:00: mouth in [place] 00 the Medical morning. Branch aspirin 81 Yes [id number] 81mg Take 1 U nivers mg EC 8-18 tablet by ity of tablet 00:00: mouth in [place] 00 the Medical morning. Branch ondansetron 2021- No [id number] 4mg Take 1 Univers 4 mg 7-31 08-18 tablet by ity of disintegrat 00:00: 00:00 [place] tablet 00 :00 every 8 Medica l (eight) Branch hours as needed for Nausea and Vomiting (N/V). ondansetron 2021- No [id number] 4mg Take 1 Univers 4 mg 7-05 07-24 tablet by ity of disintegrat 00:00: 00:00 [place] tablet 00 :00 every 8 Medica l (eight) Branch hours as needed for Nausea and Vomiting (N/V). azithromyci 2021- No [id number] 1000mg Take 2 Univers n 500 mg 5-27 05-28 4102 tablets by ity of tablet 00:00: 04:59 mouth [place] 00 :00 now for 1 Medical dose. Branch Yes [id number] 1{packe Take 1 Univers vit 5-26 t} Packet by ity of 33-iron-fol 00:00: mouth [place] ic-dha 00 daily. Medical (SELECT-OB Branch + DHA) 29 mg iron-1 mg -250 mg combo pack Yes [id number] 1{packe Take 1 Univers vit 5-26 t} Packet by ity of 33-iron-fol 00:00: mouth [place] ic-dha daily. Medical (SELECT-OB Branch + DHA) 29 mg iron-1 mg -250 mg combo pack Yes [id number] 1{packe Take 1 Univers vit 5-26 t} Packet by ity of 33-iron-fol 00:00: mouth [place] ic-dha 00 daily. Medical (SELECT-OB Branch + DHA) 29 mg iron-1 mg -250 mg combo pack Yes [id number] 1{packe Take 1 Univers vit 5-26 t} Packet by ity of 33-iron-fol 00:00: mouth [place] ic-dha 00 daily. Medical (SELECT-OB Branch + DHA) 29 mg iron-1 mg -250 mg combo pack Yes [id number] 1{packe Take 1 Univers vit 5-26 t} Packet by ity of 33-iron-fol 00:00: mouth [place] ic-dha 00 daily. Medical (SELECT-OB Branch + DHA) 29 mg iron-1 mg -250 mg combo pack Yes [id number] 1{packe Take 1 Univers vit 5-26 t} Packet by ity of 33-iron-fol 00:00: mouth [place] ic-dha 00 daily. Medical (SELECT-OB Branch + DHA) 29 mg iron-1 mg -250 mg combo pack Yes [id number] 1{packe Take 1 Univers vit 5-26 t} Packet by ity of 33-iron-fol 00:00: mouth [place] ic-dha 00 daily. Medical (SELECT-OB Branch + DHA) 29 mg iron-1 mg -250 mg combo pack Yes [id number] 1{packe Take 1 Univers vit 5-26 t} Packet by ity of 33-iron-fol 00:00: mouth [place] ic-dha 00 daily. Medical (SELECT-OB Branch + DHA) 29 mg iron-1 mg -250 mg combo pack Yes [id number] 1{packe Take 1 Univers vit 5-26 t} Packet by ity of 33-iron-fol 00:00: mouth [place] ic-dha 00 daily. Medical (SELECT-OB Branch + DHA) 29 mg iron-1 mg -250 mg combo pack Yes [id number] 1{packe Take 1 Univers vit 5-26 t} Packet by ity of 33-iron-fol 00:00: mouth [place] ic-dha 00 daily. Medical (SELECT-OB Branch + DHA) 29 mg iron-1 mg -250 mg combo pack Yes [id number] 1{packe Take 1 Univers vit 5-26 t} Packet by ity of 33-iron-fol 00:00: mouth [place] ic-dha 00 daily. Medical (SELECT-OB Branch + DHA) 29 mg iron-1 mg -250 mg combo pack Yes [id number] 1{packe Take 1 Univers vit 5-26 t} Packet by ity of 33-iron-fol 00:00: mouth [place] ic-dha 00 daily. Medical (SELECT-OB Branch + DHA) 29 mg iron-1 mg -250 mg combo pack Yes [id number] 1{packe Take 1 Univers vit 5-26 t} Packet by ity of 33-iron-fol 00:00: mouth [place] ic-dha 00 daily. Medical (SELECT-OB Branch + DHA) 29 mg iron-1 mg -250 mg combo pack Yes [id number] 1{packe Take 1 Univers vit 5-26 t} Packet by ity of 33-iron-fol 00:00: mouth [place] ic-dha 00 daily. Medical (SELECT-OB Branch + DHA) 29 mg iron-1 mg -250 mg combo pack Yes [id number] 1{packe Take 1 Univers vit 5-26 t} Packet by ity of 33-iron-fol 00:00: mouth [place] ic-dha 00 daily. Medical (SELECT-OB Branch + DHA) 29 mg iron-1 mg -250 mg combo pack Yes [id number] 1{packe Take 1 Univers vit 5-26 t} Packet by ity of 33-iron-fol 00:00: mouth [place] ic-dha 00 daily. Medical (SELECT-OB Branch + DHA) 29 mg iron-1 mg -250 mg combo pack Yes [id number] 1{packe Take 1 Univers vit 5-26 t} Packet by ity of 33-iron-fol 00:00: mouth [place] ic-dha 00 daily. Medical (SELECT-OB Branch + DHA) 29 mg iron-1 mg -250 mg combo pack Yes [id number] 1{packe Take 1 Univers vit 5-26 t} Packet by ity of 33-iron-fol 00:00: mouth [place] ic-dha 00 daily. Medical (SELECT-OB Branch + DHA) 29 mg iron-1 mg -250 mg combo pack Yes [id number] 1{packe Take 1 Univers vit 5-26 t} Packet by ity of 33-iron-fol 00:00: mouth [place] ic-dha 00 daily. Medical (SELECT-OB Branch + DHA) 29 mg iron-1 mg -250 mg combo pack Yes [id number] 1{packe Take 1 Univers vit 5-26 t} Packet by ity of 33-iron-fol 00:00: mouth [place] ic-dha 00 daily. Medical (SELECT-OB Branch + DHA) 29 mg iron-1 mg -250 mg combo pack Yes [id number] 1{packe Take 1 Univers vit 5-26 t} Packet by ity of 33-iron-fol 00:00: mouth [place] ic-dha 00 daily. Medical (SELECT-OB Branch + DHA) 29 mg iron-1 mg -250 mg combo pack Yes [id number] 1{packe Take 1 Univers vit 5-26 t} Packet by ity of 33-iron-fol 00:00: mouth [place] ic-dha 00 daily. Medical (SELECT-OB Branch + DHA) 29 mg iron-1 mg -250 mg combo pack Yes [id number] 1{packe Take 1 Univers vit 5-26 t} Packet by ity of 33-iron-fol 00:00: mouth [place] ic-dha 00 daily. Medical (SELECT-OB Branch + DHA) 29 mg iron-1 mg -250 mg combo pack Yes [id number] 1{packe Take 1 Univers vit 5-26 t} Packet by ity of 33-iron-fol 00:00: mouth [place] ic-dha 00 daily. Medical (SELECT-OB Branch + DHA) 29 mg iron-1 mg -250 mg combo pack Yes [id number] 1{packe Take 1 Univers vit 5-26 t} Packet by ity of 33-iron-fol 00:00: mouth [place] ic-dha 00 daily. Medical (SELECT-OB Branch + DHA) 29 mg iron-1 mg -250 mg combo pack Yes [id number] 1{packe Take 1 Univers vit 5-26 t} Packet by ity of 33-iron-fol 00:00: mouth [place] ic-dha 00 daily. Medical (SELECT-OB Branch + DHA) 29 mg iron-1 mg -250 mg combo pack Yes [id number] 1{packe Take 1 Univers vit 5-26 t} Packet by ity of 33-iron-fol 00:00: mouth [place] ic-dha 00 daily. Medical (SELECT-OB Branch + DHA) 29 mg iron-1 mg -250 mg combo pack Yes [id number] 1{packe Take 1 Univers vit 5-26 t} Packet by ity of 33-iron-fol 00:00: mouth [place] ic-dha 00 daily. Medical (SELECT-OB Branch + DHA) 29 mg iron-1 mg -250 mg combo pack Yes [id number] 1{packe Take 1 Univers vit 5-26 t} Packet by ity of 33-iron-fol 00:00: mouth [place] ic-dha 00 daily. Medical (SELECT-OB Branch + DHA) 29 mg iron-1 mg -250 mg combo pack Yes [id number] 1{packe Take 1 Univers vit 5-26 t} Packet by ity of 33-iron-fol 00:00: mouth [place] ic-dha 00 daily. Medical (SELECT-OB Branch + DHA) 29 mg iron-1 mg -250 mg combo pack Yes [id number] 1{packe Take 1 Univers vit 5-26 t} Packet by ity of 33-iron-fol 00:00: mouth [place] ic-dha 00 daily. Medical (SELECT-[facility] Branch + DHA) 29 mg iron-1 mg -250 mg combo pack Yes [id number] 1{packe Take 1 Univers vit 5-26 t} Packet by ity of 33-iron-fol 00:00: mouth [place] ic-dha 00 daily. Medical ([facility] Branch + DHA) 29 mg iron-1 mg -250 mg combo pack Yes [id number] 1{packe Take 1 Univers vit 5-26 t} Packet by ity of 33-iron-fol 00:00: mouth [place] ic-dha 00 daily. Medical (SELECT[facility] Branch + DHA) 29 mg iron-1 mg -250 mg combo pack Yes [id number] 1{packe Take 1 Univers vit 5-26 t} Packet by ity of 33-iron-fol 00:00: mouth [place] ic-dha 00 daily. Medical (SELECT-[facility] Branch + DHA) 29 mg iron-1 mg -250 mg combo pack pyridoxine, 2021- No [id number] 25mg Take 1 Univers VITAMIN 5-26 07-22 tablet by ity of B-6, 25 mg 00:00: 00:00 mouth 3 [place] as tablet 00 :00 (three) Medical times Branch daily. doxylamine 2021- No [id number] 25mg Take 1 Univers 25 mg 5-26 07-22 tablet by ity of tablet 00:00: 00:00 mouth at [place] 00 :00 bedtime. Medical Branch pyridoxine, 2021- No [id number] 25mg Take 1 Univers VITAMIN 5-26 07-22 tablet by ity of B-6, 25 mg 00:00: 00:00 mouth 3 [place] as tablet 00 :00 (three) Medical times Branch daily. doxylamine 2021- No [id number] 25mg Take 1 Univers 25 mg 5-26 07-22 tablet by ity of tablet 00:00: 00:00 mouth at [place] 00 :00 bedtime. Medical Branch labetaloL 0 Yes Univers 100 mg 4-19 ity of tablet 00:00: [place] [facility] labetaloL 0 Yes Univers 100 mg 4-19 ity of tablet 00:00: [place] [facility] labetaloL 2021-0 Yes Univers 100 mg 4-19 ity of tablet 00:00: [place] [facility] labetaloL 2021-0 Yes Univers 100 mg 4-19 ity of tablet 00:00: [place] [facility] labetaloL 2021-0 Yes Univers 100 mg 4-19 ity of tablet 00:00: [place] [facility] labetaloL 2021-0 Yes Univers 100 mg 4-19 ity of tablet 00:00: [place] [facility] labetaloL 2021-0 Yes Univers 100 mg 4-19 ity of tablet 00:00: [place] [facility] labetaloL 2021-0 Yes Univers 100 mg 4-19 ity of tablet 00:00: [place] [facility] labetaloL 2021-0 Yes Univers 100 mg 4-19 ity of tablet 00:00: [place] [facility] labetaloL 2021-0 Yes Univers 100 mg 4-19 ity of tablet 00:00: [place] [facility] labetaloL 2021-0 Yes Univers 100 mg 4-19 ity of tablet 00:00: [place] 00 Medical Branch labetaloL 2021-0 Yes Univers 100 mg 4-19 ity of tablet 00:00: [place] [facility] labetaloL 2021-0 Yes Univers 100 mg 4-19 ity of tablet 00:00: [place] [facility] labetaloL 2021-0 Yes Univers 100 mg 4-19 ity of tablet 00:00: [place] [facility] labetaloL 2021-0 Yes Univers 100 mg 4-19 ity of tablet 00:00: [place] [facility] labetaloL 2021-0 Yes Univers 100 mg 4-19 ity of tablet 00:00: [place] [facility] labetaloL 2021-0 Yes Univers 100 mg 4-19 ity of tablet 00:00: [place] [address] Medical Branch labetaloL 2021-0 Yes Univers 100 mg 4-19 ity of tablet 00:00: [place] [address] Medical Branch labetaloL 2021-0 Yes Univers 100 mg 4-19 ity of tablet 00:00: [place] [address] Medical Branch labetaloL 2021-0 Yes Univers 100 mg 4-19 ity of tablet 00:00: [place] [address] Medical Branch labetaloL 2021-0 Yes Univers 100 mg 4-19 ity of tablet 00:00: [place] [address] Medical Branch labetaloL 2021-0 Yes Univers 100 mg 4-19 ity of tablet 00:00: [place] [facility] labetaloL 2021-0 Yes Univers 100 mg 4-19 ity of tablet 00:00: [place] [address] Medical Branch labetaloL 2021-0 Yes Univers 100 mg 4-19 ity of tablet 00:00: [place] [address] Medical Branch labetaloL 2021-0 Yes Univers 100 mg 4-19 ity of tablet 00:00: [place] [facility] labetaloL 2021-0 Yes Univers 100 mg 4-19 ity of tablet 00:00: [place] [address] Medical Branch labetaloL 2-0 Yes Univers 100 mg 4-19 ity of tablet 00:00: [place] [facility] labetaloL 2021-0 Yes Univers 100 mg 4-19 ity of tablet 00:00: [place] [facility] labetaloL 2021-0 Yes Univers 100 mg 4-19 ity of tablet 00:00: [place] [address] Medical Branch labetaloL 2021-0 Yes Univers 100 mg 4-19 ity of tablet 00:00: [place] [address] Medical Branch labetaloL 2022-0 Yes Univers 100 mg 4-19 ity of tablet 00:00: [place] [facility] labetaloL 2021-0 Yes Univers 100 mg 4-19 ity of tablet 00:00: [place] [facility] [place] labetaloL 2021-0 Yes Univers 100 mg 4-19 ity of tablet 00:00: [place] [facility] labetaloL 2021-0 Yes Univers 100 mg 4-19 ity of tablet 00:00: [place] [facility] Immunizations Ordered Filled Immunization Date Status Comments [facility] e Immunization Name Name TD 2022-05-17 Completed University of 00:00:00 [facility] TDAP 2022-05-17 Completed University of 00:00:00 [facility] TDAP 2022-05-17 Completed University of 00:00:00 [facility] TDAP 2022-05-17 Completed University of 00:00:00 [facility] TDAP 2022-05-17 Completed University of 00:00:00 [facility] TDAP 2022-05-17 Completed University of 00:00:00 [facility] TDAP 2022-05-17 Completed University of 00:00:00 [facility] TDAP 2022-05-17 Completed University of 00:00:00 [facility] TDAP 2022-05-17 Completed University of 00:00:00 [facility] TDAP 2022-05-17 Completed University of 00:00:00 [facility] TDAP 2022-05-17 Completed University of 00:00:00 [facility] TDAP 2022-05-17 Completed University of 00:00:00 [facility] TDAP 2022-05-17 Completed University of 00:00:00 [facility] TDAP 2022-05-17 Completed University of 00:00:00 [facility] TDAP 2022-05-17 Completed University of 00:00:00 [facility] TDAP 2022-05-17 Completed University of 00:00:00 [facility] TDAP 2022-05-17 Completed University of 00:00:00 [facility] TDAP 2022-05-17 Completed University of 00:00:00 [facility] TDAP 2022-05-17 Completed University of 00:00:00 [facility] TDAP 2022-05-17 Completed University of 00:00:00 [facility] TDAP 2022-05-17 Completed University of 00:00:00 [place] [facility] TDAP 2022-05-17 Completed University of 00:00:00 [place] [facility] TDAP 2022-05-17 Completed University of 00:00:00 [place] [facility] TDAP 2022-05-17 Completed University of 00:00:00 [facility] Vital Signs Vital Name Observation Time Observation Value Comments Source Systolic blood 2022-09-10 17:10:00 121 mm[Hg] Univer sity of pressure [place] [facility] Diastolic blood 2022-09-10 17:10:00 80 mm[Hg] Unive rsity of pressure [place] [facility] Heart rate 2022-09-10 17:10:00 83 /min Universi ty of [place] [facility] Body temperature 2022-09-10 17:10:00 36.83 Marisol Univ ersity of [place] [facility] Respiratory rate 2022-09-10 17:10:00 17 /min Univ ersity of [place] [facility] Body height 2022-09-10 17:10:00 165.1 cm Universi ty of [place] [facility] Body weight 2022-09-10 17:10:00 99.338 kg Universi ty of [place] [facility] BMI 2022-09-10 17:10:00 36.44 kg/m2 Universi ty of [place] [facility] Systolic blood 2022-08-21 16:41:00 116 mm[Hg] Univer sity of pressure [place] [facility] Diastolic blood 2022-08-21 16:41:00 79 mm[Hg] Unive rsity of pressure [place] [facility] Heart rate 2022-08-21 16:41:00 88 /min Universi ty of [place] [facility] Body temperature 2022-08-21 16:41:00 36.72 Marisol Univ ersity of [place] [facility] Respiratory rate 2022-08-21 16:41:00 17 /min Univ ersity of [place] [facility] Body height 2022-08-21 16:41:00 165.1 cm Universi ty of [place] [facility] Body weight 2022-08-21 16:41:00 97.977 kg Universi ty of [place] [facility] BMI 2022-08-21 16:41:00 35.94 kg/m2 Universi ty of [place] [facility] Systolic blood 2022-08-06 15:53:00 132 mm[Hg] Univer sity of pressure [place] [facility] Diastolic blood 2022-08-06 15:53:00 88 mm[Hg] Unive rsity of pressure [place] [facility] Heart rate 2022-08-06 15:53:00 96 /min Universi ty of [place] [facility] Body temperature 2022-08-06 15:53:00 36.72 Marisol Univ ersity of [place] [facility] Respiratory rate 2022-08-06 15:53:00 18 /min Univ ersity of [place] [facility] Body height 2022-08-06 15:53:00 165.1 cm Universi ty of [place] [facility] Body weight 2022-08-06 15:53:00 102.83 kg Universi ty of [place] [facility] BMI 2022-08-06 15:53:00 37.72 kg/m2 Universi ty of [place] [facility] Systolic blood 2022-08-03 02:00:00 135 mm[Hg] Univer sity of pressure [place] [facility] Diastolic blood 2022-08-03 02:00:00 86 mm[Hg] Unive rsity of pressure [place] [facility] Heart rate 2022-08-03 02:00:00 74 /min Universi ty of [place] [facility] Body temperature 2022-08-03 02:00:00 36.22 Marisol [facility] ersity of [place] [facility] Respiratory rate 2022-08-03 02:00:00 18 /min [facility] Oxygen saturation in 2022-08-03 02:00:00 100 /min [facility] Arterial blood by [facility] Pulse oximetry Branch Body height 2022-07-31 22:01:00 165.1 cm Universi ty of [place] [facility] Body weight 2022-07-31 22:01:00 109.77 kg Universi ty of [place] [facility] BMI 2022-07-31 22:01:00 40.27 kg/m2 Universi ty of [place] [facility] Systolic blood 2022-07-30 14:52:00 125 mm[Hg] Univer sity of pressure [place] [facility] Diastolic blood 2022-07-30 14:52:00 89 mm[Hg] Unive rsity of pressure [place] [facility] Heart rate 2022-07-30 14:52:00 80 /min Universi ty of [place] [facility] Body temperature 2022-07-30 14:52:00 36.89 Marisol Univ ersity of [place] [facility] Respiratory rate 2022-07-30 14:52:00 18 /min Univ ersity of [place] [facility] Body height 2022-07-30 14:52:00 165.1 cm Universi ty of [place] [facility] Body weight 2022-07-30 14:52:00 110.859 kg Universi ty of [place] [facility] BMI 2022-07-30 14:52:00 40.67 kg/m2 Universi ty of [place] [facility] Systolic blood 2022-07-23 14:15:00 134 mm[Hg] Univer sity of pressure [place] [facility] Diastolic blood 2022-07-23 14:15:00 88 mm[Hg] Unive rsity of pressure [place] [facility] Branch Heart rate 2022-07-23 14:15:00 80 /min Universi ty of [place] [facility] Branch Body temperature 2022-07-23 14:15:00 36.83 Marisol Univ ersity of [place] [facility] Branch Respiratory rate 2022-07-23 14:15:00 16 /min Univ ersity of [place] [facility] Body height 2022-07-23 14:15:00 165.1 cm Universi ty of [place] [facility] Body weight 2022-07-23 14:15:00 109.907 kg Universi ty [facility] [place] [facility] BMI 2022-07-23 14:15:00 40.32 kg/m2 Universi ty of [place] [facility] Branch Oxygen saturation in 2022-07-23 14:15:00 98 /min University Arterial blood by [facility] Pulse oximetry Branch Systolic blood 2022-07-17 15:07:00 128 mm[Hg] Univer sity of pressure [place] [facility] Diastolic blood 2022-07-17 15:07:00 85 mm[Hg] Unive rsity of pressure [place] [facility] Heart rate 2022-07-17 15:07:00 88 /min Universi ty of [place] [facility] Body temperature 2022-07-17 15:07:00 36.89 Marisol Univ ersity of [place] [facility] Branch Respiratory rate 2022-07-17 15:07:00 18 /min Univ ersity of [place] [facility] Body height 2022-07-17 15:07:00 165.1 cm Universi ty of [place] [facility] Body weight 2022-07-17 15:07:00 109.77 kg Universi ty [facility] [place] [facility] BMI 2022-07-17 15:07:00 40.27 kg/m2 [facility]i ty [facility] [place] [facility] Systolic blood 2022-07-10 22:34:00 124 mm[Hg] Univer sity of pressure [place] [facility] Diastolic blood 2022-07-10 22:34:00 82 mm[Hg] Unive rsity of pressure [place] [facility] Heart rate 2022-07-10 22:34:00 103 /min Universi ty of [place] [facility] Body height 2022-07-10 22:34:00 165.1 cm Universi ty [facility] [place] [facility] Body weight 2022-07-10 22:34:00 107.956 kg Universi ty [facility] [place] [facility] BMI 2022-07-10 22:34:00 39.61 kg/m2 Universi ty [facility] [place] [facility] Oxygen saturation in 2022-07-10 22:34:00 98 /min University of Arterial blood by [place] [employer] Pulse oximetry Branch Systolic blood 2022-07-03 21:22:00 131 mm[Hg] Univer sity of pressure [place] [facility] Diastolic blood 2022-07-03 21:22:00 88 mm[Hg] Unive rsity of pressure [place] [facility] Heart rate 2022-07-03 21:22:00 85 /min Universi ty [facility] [place] [facility] Body temperature 2022-07-03 21:22:00 37.11 Marisol Univ ersity of [place] [facility] Respiratory rate 2022-07-03 21:22:00 16 /min Univ ersity of [place] [facility] Body height 2022-07-03 21:22:00 165.1 cm Universi ty [facility] [place] [facility] Body weight 2022-07-03 21:22:00 107.684 kg [facility]i ty [facility] [place] [facility] BMI 2022-07-03 21:22:00 39.51 kg/m2 Universi ty [facility] [place] [facility] Oxygen saturation in 2022-07-03 21:22:00 100 /min University of Arterial blood by [place] [employer] Pulse oximetry Branch Systolic blood 2022-06-19 22:11:00 129 mm[Hg] Univer sity of pressure [place] [facility] Diastolic blood 2022-06-19 22:11:00 86 mm[Hg] Unive rsity of pressure [place] [facility] Heart rate 2022-06-19 22:11:00 82 /min Universi ty [facility] [place] [facility] Body temperature 2022-06-19 22:11:00 36.72 Marisol Univ ersity of [place] [facility] Respiratory rate 2022-06-19 22:11:00 16 /min Univ ersity of [place] [facility] Body height 2022-06-19 22:11:00 165.1 cm [facility]i ty [facility] [place] [facility] Body weight 2022-06-19 22:11:00 107.276 kg [facility]i ty [facility] [place] [facility] BMI 2022-06-19 22:11:00 39.36 kg/m2 [facility]i ty [facility] [place] [facility] Oxygen saturation in 2022-06-19 22:11:00 98 /min University of Arterial blood by [facility] Pulse oximetry Branch Systolic blood 2022-06-05 22:51:00 122 mm[Hg] Univer sity of pressure [place] [facility] [place] Diastolic blood 2022-06-05 22:51:00 82 mm[Hg] Unive rsity of pressure [place] [facility] [place] Heart rate 2022-06-05 22:51:00 81 /min Universi ty of [place] [facility] Body temperature 2022-06-05 22:51:00 36.94 Marisol Univ ersity of [place] [facility] Respiratory rate 2022-06-05 22:51:00 18 /min Univ ersity of [place] [facility] Body height 2022-06-05 22:51:00 165.1 cm [facility]i ty [facility] [place] [facility] Body weight 2022-06-05 22:51:00 109.77 kg Universi ty [facility] [place] [facility] BMI 2022-06-05 22:51:00 40.27 kg/m2 [facility]i ty [facility] [place] [facility] Systolic blood 2022-05-17 15:59:00 129 mm[Hg] Univer sity of pressure [place] [facility] Diastolic blood 2022-05-17 15:59:00 85 mm[Hg] Unive rsity of pressure [place] [facility] Heart rate 2022-05-17 15:59:00 84 /min Universi ty [facility] [place] [facility] Body temperature 2022-05-17 15:59:00 36.89 Marisol Univ ersity of [place] [facility] Body height 2022-05-17 15:59:00 165.1 cm [facility]i ty [facility] [place] [facility] Body weight 2022-05-17 15:59:00 106.777 kg [facility]i ty [facility] [place] [facility] BMI 2022-05-17 15:59:00 39.17 kg/m2 [facility]i ty [facility] [place] [facility] Systolic blood 2022-04-24 21:02:00 121 mm[Hg] Univer sity of pressure [place] [facility] Diastolic blood 2022-04-24 21:02:00 80 mm[Hg] Unive rsity of pressure [place] [facility] Heart rate 2022-04-24 21:02:00 89 /min Universi ty [facility] [place] [facility] Body temperature 2022-04-24 21:02:00 37 Marisol Univ ersity of [place] [facility] Respiratory rate 2022-04-24 21:02:00 16 /min Univ ersity of [place] [facility] Body height 2022-04-24 21:02:00 165.1 cm [facility]i ty [facility] [place] [facility] Body weight 2022-04-24 21:02:00 105.189 kg [facility]i ty [facility] [place] [facility] BMI 2022-04-24 21:02:00 38.59 kg/m2 [facility]i ty [facility] [place] [facility] Oxygen saturation in 2022-04-24 21:02:00 98 /min University of Arterial blood by [employer] Pulse oximetry Branch Systolic blood 2022-03-21 21:42:00 124 mm[Hg] Univer sity of pressure [place] [facility] Diastolic blood 2022-03-21 21:42:00 86 mm[Hg] Unive rsity of pressure [place] [facility] Heart rate 2022-03-21 21:42:00 89 /min [facility]i ty [facility] [place] [facility] Body temperature 2022-03-21 21:42:00 36.72 Marisol Univ ersity of [place] [facility] Respiratory rate 2022-03-21 21:42:00 16 /min Univ ersity of [place] [facility] Body height 2022-03-21 21:42:00 165.1 cm [facility] ty [facility] [place] [facility] Body weight 2022-03-21 21:42:00 106.142 kg [facility] ty [facility] [place] [facility] BMI 2022-03-21 21:42:00 38.94 kg/m2 [facility] ty [facility] [place] [facility] Oxygen saturation in 2022-03-21 21:42:00 99 /min University of Arterial blood by [employer] [facility] Pulse oximetry Branch Procedures Procedure Date / Time Performed Performing Clinician [facility] e DIABETES TESTING 2022-08-20 06:01:00 Doctor Unassigned, No [facility] [place] RE[facility] Name Medical Branch CBC WITH DIFF 2022-08-02 10:45:00 Adum, Vivienne Johnson [facility] CENTRAL NEURAXIAL 2022-08-01 14:30:00 [facility] CBC WITH DIFF 2022-07-31 22:47:00 Adum, Vivienne Johnson [facility] HEPATITIS B SURFACE 2022-07-31 22:47:00 Adum, Vivienne Johnson [facility] ANTIGEN [facility] Branch ADC OR MARIALUISA ONLY - 2022-07-31 22:47:00 Adum, Vivienne Johnson [facility] RPR [facility] HIV 1/2 AG-AB WITH 2022-07-31 22:47:00 Adum, Vivienne Johnson [facility] REFLEX [facility] Branch HB ABO GROUPING 2022-07-31 22:20:00 Adum, Vivienne Johnson [facility] HOSPITAL ADMISSION 2022-07-31 06:01:00 [facility]igned, [facility]/O 2022-07-30 00:00:00 Adum, Vivienne Johnson [facility] SPECIFIC GRAVITY [facility] CONSENT/REFUSAL FOR 2022-07-23 20:37:10 Doctor Unassigned, No [facility] [place] DIAGNOSIS AND Name Medical Branch TREATMENT ASSIGNMENT OF BENEFITS 2022-07-23 20:36:42 Doctor Unassigned, No [facility] POCT URINALYSIS W/O 2022-07-23 00:00:00 Adum, Vivienne Johnson [facility] SPECIFIC GRAVITY Medical [place] POCT URINALYSIS W/O 2022-07-17 00:00:00 Adum, Vivienne Johnson [facility] SPECIFIC GRAVITY Medical [place] POCT URINALYSIS 2022-07-10 22:45:00 Adum, Vivienne Johnson [facility] DSU PRE-OP 2022-07-10 06:01:00 Doctor Unassigned, No [facility] POCT URINALYSIS W/O 2022-07-03 00:00:00 Adum, Vivienne Johnson Universi ty of [facility] POCT URINALYSIS W/O 2022-06-19 00:00:00 Adum, Vivienne Johnson Universi ty of [facility] POCT URINALYSIS W/O 2022-06-05 00:00:00 Adum, Vivienne Johnson Universi ty of [facility] TDAP VACCINE, >11 YRS, 2022-05-17 16:01:33 Adum, Vivienne Johnson [facility] ity [facility] POCT URINALYSIS W/O 2022-05-17 00:00:00 Adum, Vivienne Johnson Universi ty of [facility] POCT URINALYSIS W/O 2022-04-24 00:00:00 Adum, Vivienne Johnson Universi ty of [facility] POCT URINALYSIS W/O 2022-03-21 00:00:00 Ron [facility] Encounters Start End Encounter Admission Attending Care Care Encounter Source Date/Time Date/Time Type Type Clinicians Facility Department ID 2022-12-13 2022-12-13 Outpatient R ADUM, [facility] [id number] Univers 11:00:00 11:00:[address] [facility] [place] [place] 2022-09-10 2022-09-10 Outpatient R ADUM, [facility] [id number] Univers 11:15:00 11:41:36 VIVIENNE frye [facility] 2022-09-10 2022-09-10 Routine Adum, [facility] [id number] Univers 11:15:00 11:41:36 Vivienne REED 350.1.13.10 ity of Visit WOMEN'S 4.2.7.2.686 [facility] [id number] [place] [address] Branch 2022-08-21 2022-08-21 Outpatient R ADUM, [facility] [id number] Univers 10:45:00 10:49:41 VIVIENNE frye [facility] 2022-08-21 2022-08-21 Routine Tritschler, Cheryal [facility] 1.2. [id number] Univers 10:45:00 10:49:41 Adum, Vivienne REED 350.1.13.10 ity of [place] 4[place] [facility] [id number] [facility] [address] [place] 2022-08-20 2022-08-20 Orders Doctor OREN [id number] Univers 00:00:00 00:00:00 Only Unassigned, GARY 350.1.13.10 ity of [place] [facility] 4.2.7.2.686 [place] [id number] [facility] 009 Branch 2022-08-06 2022-08-06 Nurse Nurse, Lkj [facility] [id number] Univers 10:00:00 10:15:00 Visit Adum, Vivienne REED 350.1.13.10 ity [place] [id number] [address] 2022-08-06 2022-08-06 Outpatient R [facility] [id number] Univers 10:00:00 10:00:00 VIVIENNE ity of [facility] 2022-08-05 2022-08-05 Telephone [facility] [id number] Univers 00:00:00 00:00:00 Vivienne REED 350.1.13.10 i ty of [place] [id number] [address] 2022-07-31 2022-08-02 Inpatient P [facility] [id number] Univers 15:37:00 21:29:00 VIVIENNE ity of [facility] 2022-07-31 2022-08-02 Hospital [facility] 1.2.840.114 [id number] Univers 15:37:00 21:29:00 Encounter Vivienne SY 350.1.13.10 ity of [place] 4.2.7.2.686 [facility] [id number] [facility] [address] [place] 2022-08-01 2022-08-01 Anesthesia [facility] 1.2.840.114 [id number] Univers 08:36:00 21:10:00 Event KERRIE coronel 350.1.13.10 i ty of [place] 4.2.7.2.686 [place] as CAMPUS [id number] [facility] 083 Branch 2022-07-31 2022-07-31 Orders Doctor OREN 1.2.840.114 [id number] Univers 00:00:00 00:00:00 Only Unassigned, GARY 350.1.13.10 ity of [place] [facility] 4.2.7.2.686 [place] as [id number] [facility] 009 Branch 2022-07-30 2022-07-30 Outpatient R ADUM, [facility] [id number] Univers 09:00:00 09:13:15 VIVIENNE frye [facility] 2022-07-30 2022-07-30 [facility] [id number] Univers 09:00:00 09:13:15 Vivienne REED 350.1.13.10 ity of Visit WOMEN'S 4.2.7.2.686 [facility] [id number] [facility] [address] 2022-07-23 2022-07-23 Outpatient R ADUM, [facility] [id number] Univers 08:00:00 08:42:03 VIVIENNE ity [facility] 2022-07-23 2022-07-23 Routine Adum, [facility] [id number] Univers 08:00:00 08:42:03 Vivienne REED 350.1.13.10 ity of Visit WOMEN'S 4.2.7.2.686 [facility] [id number] [address] 2022-07-17 2022-07-17 Outpatient R ADUM, [facility] [id number] Univers 09:00:00 09:31:34 VIVIENNE frye [facility] 2022-07-17 2022-07-17 [facility] [id number] Univers 09:00:00 09:31:34 Vivienne REED 350.1.13.10 ity of [place] [id number] [address] 2022-07-15 2022-07-15 Civil Rights Representative 2, Adc [facility] 1.2.840.114 [id number] Univers 14:15:00 14:27:56 Visit Adum, Vivienne Johnson KERRIE 350.1.13.10 ity of [facility] [place] [id number] [place] [address] 2022-07-15 2022-07-15 Outpatient R ADUM, [facility] [id number] Univers 14:15:00 14:15:[address] [facility] [place] [place] 2022-07-10 2022-07-10 Outpatient R ADUM, [facility] [id number] Univers 16:15:00 17:17:28 [facility] 2022-07-10 Routine Adum, [facility] 1.2.374.488 [id number] Univers 16:15:00 17:17:28 Vivienne Johnson DEREK 350.1.13.10 ity of [place] [id number] [address] 2022-07-10 2022-07-10 Orders Doctor OREN 1.2.840.114 [id number] Univers 00:00:00 00:00:00 Only Unassigned, GARY 350.1.13.10 ity of [place] [facility] 4.2.7.2.686 [place] as [id number] [address] 2022-07-05 2022-07-05 Civil Rights Representative 2, Adc Lab [facility] 1.2.840.114 [id number] Univers 13:30:00 13:45:00 Visit Adum, Vivienne Johnson KERRIE 350.1.13.10 ity of [facility] [place] [id number] Il dical NAL [address] [place] [address] 2022-07-05 2022-07-05 Civil Rights Representative Ultrasound, Karrie [facility] 1.2 .840.114 [id number] Univers 13:00:00 13:30:00 Visit Luther Agrawal Machoeric FIELD RESEARCH ASSOCIATE 350.1. 13.10 ity of [facility] 4.2.7.2.686 [place] as MATERNAL [id number] [facility] ical & CHILD [address] [place] [address] 2022-07-05 2022-07-05 Outpatient P TANJA [facility] [id number] Univers 13:00:00 13:00:00 LUTHER ity [facility] 2022-07-03 2022-07-03 Outpatient R ADUM, [facility] [id number] Univers 14:15:00 15:47:40 VIVIENNE itpiper [facility] 2022-07-03 2022-07-03 Routine Adum, [facility] 1.2.927.016 [id number] Univers 14:15:00 15:47:40 Vivienne Alex REED 350.1.13.10 ity of [place] [id number] [address] 2022-06-25 2022-06-25 Telephone [facility]a [facility] 1.2.472.052 [id number] Univers 00:00:00 00:00:00 [facility] 350.1.13.10 ity [facility] [place] [id number] [address] 2022-06-19 2022-06-19 Outpatient R ADUM, [facility] [id number] Univers 16:00:00 16:39:50 [facility] 2022-06-19 2022-06-19 Routine Adum, [facility] 1.2.203.406 [id number] Univers 16:00:00 16:39:50 Vivienne Alex DEREK 350.1.13.10 ity of [place] [id number] [address] 2022-06-05 2022-06-05 [facility] [id number] Univers 16:15:00 17:08:06 VIVIENNE mleva [facility] 2022-06-05 2022-06-05 Routine Adum, [facility] 1.2.641.866 [id number] Univers 16:15:00 17:08:06 Vivienne REED 350.1.13.10 ity [place] [id number] [address] 2022-05-17 2022-05-17 Routine Adum, [facility] 1.2.840.114 [id number] Univers 09:45:00 10:31:35 Vivienne SY 350.1.13.10 ity of [facility] [place] [id number] Il dical NAL [address] [place] [address] 2022-05-17 2022-05-17 Outpatient R ADUM, [facility] [id number] Univers 08:30:00 09:20:31 VIVIENNE frye [facility] 2022-05-17 2022-05-17 Civil Rights Representative 2, Adc Lab [facility] 1.2.840.114 [id number] [facility] 08:30:00 09:20:31 Visit Adum, Vivienne Alex SY 350.1.13.10 ity of [place] [id number] Il dical NAL 353 [facility] 2022-05-07 2022-05-07 Civil Rights Representative Ultrasound, [facility] 1.2 .840.114 [id number] Univers 09:00:00 09:45:00 Visit Shyann Good 350.1.13.10 ity of [place].2.[place] [id number] Il dical NAL 134 [facility] 2022-05-07 2022-05-07 Outpatient P KEVYN [facility] [id number] Univers 09:00:00 09:00:00 SHYANN frye [facility] 2022-05-02 2022-05-02 Telephone Adum, [facility] 1.2.840.114 [id number] Univers 00:00:00 00:00:00 Vivienne REED 350.1.13.10 i ty of [place] [id number] [address] 2022-04-24 2022-04-24 Outpatient R TERRELL, [facility] [id number] Univers 15:30:00 16:36:47 VIVIENNE ity [facility] 2022-04-24 2022-04-24 Routine Adum, [facility] 1.2.568.695 [id number] Univers 15:30:00 16:36:47 Vivienne Johnson DEREK 350.1.13.10 ity of [place] [id number] [address] 2022-04-04 2022-04-04 Civil Rights Representative Ultrasound, Blanca [facility] 1.2 .840.114 [id number] Univers 13:00:00 14:15:00 Visit SalvatoreLuther solares Jerod FIELD RESEARCH ASSOCIATE 350.1. 13.10 ity of REGIONAL 4.2.7.2.686 [place] as MATERNAL [id number] Med ical & CHILD [address] [place] [address] 2022-04-04 2022-04-04 Outpatient P TANJA [facility] [id number] Univers 13:00:00 13:00:[address] [facility] [place] [place] 2022-03-28 2022-03-28 Outpatient P [facility] [id number] Univers 09:45:00 09:45:00 [facility] 2022-03-21 2022-03-21 Outpatient R FARHANA VELASQUEZN [facility] [id number] Univers 16:15:00 17:05:46 [facility] 2022-03-21 2022-03-21 Routine Yovani Velasquez [facility] 1.2.840.114 [id number] Univers 16:15:00 17:05:46 DEREK 350.1.13.10 i ty of [place] 4[place] [id number] [address] 2022-03-08 2022-03-08 Civil Rights Representative 2, Adc Lab [facility] 1.2.840.114 [id number] Univers 15:30:00 15:45:00 Visit Yovani Velasquez 350.1.13.10 ity [facility] 4.2.7.2.[place] [id number] [address] 2022-03-08 2022-03-08 Outpatient R YOVANI VELASQUEZ [facility] [id number] Univers 15:30:00 15:30:00 ity [facility] 2022-03-06 2022-03-06 Telephone Yovani Velasquez 1.2.840.11 [id number] Univers 00:00:00 00:00:00 DEREK 350.1.13.10 it y of [place] [id number] [address] 2022-02-21 2022-02-21 Outpatient R YOVANI VELASQUEZ [facility] [id number] Univers 16:15:00 16:43:07 ity [facility] 2022-02-21 2022-02-21 Routine Yovani Velasquez [facility] 1.2.840.114 [id number] Univers 16:15:00 16:43:07 DEREK 350.1.13.10 i ty of [place] [id number] [address] 2022-02-18 2022-02-18 Outpatient R YOVANI VELASQUEZ [facility] [id number] Univers 16:00:00 16:00:00 ity [facility] 2022-02-18 2022-02-18 Outpatient R YOVANI VELASQUEZ [facility] [id number] Univers 16:00:00 16:00:00 ity [facility] 2022-02-14 2022-02-14 Outpatient R YOVANI VELASQUEZ [facility] [id number] Univers 16:15:00 16:15:00 ity [facility] 2022-02-07 2022-02-07 Telephone Yovani Velasquez 1.2.840.11 [id number] Univers 00:00:00 00:00:00 DEREK 350.1.13.10 it y of [place] [id number] [address] 2022-02-07 2022-02-07 Refill Yovani Velasquez 1.2.840.114 [id number] Univers 00:00:00 00:00:00 DEREK 350.1.13.10 it y of [place] [id number] [address] 2022-02-01 2022-02-01 Nurse OREN [place] 1.2.840.114 [id number] Univers 00:00:00 00:00:00 Triage Jo-Ann VEGA 350.1.13.10 ity of [facility] 4.2.7.2.686 [place] as [id number] [address] 2022-01-26 2022-01-26 Refill Yovani Velasquez 1.2.840.114 [id number] Univers 00:00:00 00:00:00 DEREK 350.1.13.10 it y of [place] [id number] [address] 2022-01-25 2022-01-25 Refill Yovani Velasquez [facility] 1.2.840.114 [id number] Univers 00:00:00 00:00:00 DEREK 350.1.13.10 it y [place] [id number] [address] 2022-01-23 2022-01-23 Civil Rights Representative 2, Adc Lab [facility] 1.2.840.114 [id number] Univers 11:15:00 11:30:00 Visit Yovani Velasquez 350.1.13.10 ity [facility] 4.2.7.2.[place] [id number] Il dical [address] 2022-01-23 2022-01-23 Outpatient R YOVANI VELASQUEZ [facility] [id number] Univers 11:15:00 11:15:00 ity of [facility] 2022-01-22 2022-01-22 Refill Yovani Velasquez [facility] 1.2.840.114 [id number] Univers 00:00:00 00:00:00 DEREK 350.1.13.10 it y [place] [id number] [address] 2022-01-21 2022-01-21 Outpatient R YOVANI VELASQUEZ [facility] [id number] Univers 08:00:00 08:54:31 ity of [facility] 2022-01-21 2022-01-21 Routine Yovani Velasquez [facility] 1.2.840.114 [id number] Univers 08:00:00 08:54:31 DEREK 350.1.13.10 i ty of Visit [place] 4[place].2.[place] [id number] [address] 2022-01-04 2022-01-04 Refill Yovani Velasquez [facility] 1.2.840.114 [id number] Univers 00:00:00 00:00:00 DEREK 350.1.13.10 it y [place] 4[place] [id number] [address] 2021-12-25 2021-12-25 Civil Rights Representative 2, Adc Lab [facility] 1.2.840.114 [id number] Univers 08:15:00 08:30:00 Visit Yovani Velasquez 350.1.13.10 ity of [place].2.[place] [id number] Il dical NAL [address] [place] [address] 2021-12-25 2021-12-25 Outpatient R YOVANI VELASQUEZ [facility] [id number] Univers 08:15:00 08:15:00 ity of [facility] 2021-12-23 2021-12-23 Telephone Yovani Velasquez [facility] 1.2.840.11 [id number] Univers 00:00:00 00:00:00 DEREK 350.1.13.10 it y of PEDIATRIC 4[address] [facility] [id number] [address] 2021-12-21 2021-12-21 Outpatient R YOVANI VELASQUEZ [facility] [id number] Univers 15:00:00 15:51:17 ity of [facility] 2021-12-21 2021-12-21 Routine Yovani Velasquez [facility] 1.2.840.114 [id number] Univers 15:00:00 15:51:17 KERRIE 350.1.13.10 ity of [facility] 4.2.[place] [id number] Il dical [address] 2021-12-21 2021-12-21 Outpatient R YOVANI VELASQUEZ [facility] [id number] Univers 15:00:00 15:51:17 ity of [facility] 2021-12-21 2021-12-21 Routine Ralph [facility] 1.2.840.114 [id number] Univers 09:30:00 10:00:00 Cameron REED 350.1.13.10 i ty of [place] [id number] [address] 2021-12-21 2021-12-21 Outpatient R CAMERON LANZA [facility] [id number] Univers 09:30:00 09:30:00 CAMERON LANZA ity of [facility] 2021-12-21 2021-12-21 Telephone Yovani Velasquez [facility] 1.2.840.11 [id number] Univers 00:00:00 00:00:00 DEREK 350.1.13.10 it y of [place] [id number] [address] 2021-12-21 2021-12-21 Orders Doctor OREN 1.2.840.114 [id number] Univers 00:00:00 00:00:00 Only Unassigned, GARY 350.1.13.10 ity of [place] [facility] 4.2.7.2.686 [place] as [id number] [address] 2021-12-17 2021-12-17 Telephone Yovani Velasquez [facility] 1.2.840.11 [id number] Univers 00:00:00 00:00:00 DEREK 350.1.13.10 it y [place] [id number] [address] 2021-12-17 2021-12-17 Telephone Yovani Velasquez 1.2.840.11 [id number] Univers 00:00:00 00:00:00 DEREK 350.1.13.10 it y of PEDIATRIC 4.[address].7.2[address] [facility] [id number] [address] 2021-12-13 2021-12-13 Outpatient R YOVANI VELASQUEZ [facility] [id number] Univers 08:00:00 08:36:35 ity of [facility] 2021-12-13 2021-12-13 Routine Yovani Velasquez [facility] 1.2.840.114 [id number] Univers 08:00:00 08:36:35 DEREK 350.1.13.10 i ty of [place] 4[place]2.[place] [id number] [address] 2021-12-13 2021-12-13 Outpatient R YOVANI VELASQUEZ [facility] [id number] Univers 08:00:00 08:00:00 ity of [facility] 2021-12-10 2021-12-10 Telephone Yovani Velasquez [facility] 1.2.840.11 4 [id number] Univers 00:00:00 00:00:00 DEREK 350.1.13.10 it y of PEDIATRIC 4.2.7.2.686 Te [facility] [id number] [address] 2021-12-04 2021-12-04 Patient Gerson [facility] 1.2.840.114 [id number] Univers 00:00:00 00:00:00 Secure Msg Mariah SY 350.1.13.10 ity of [place].7.2.[place] [id number] Il dical [address] 2021-11-30 2021-11-30 Case Yovani Velasquez [facility] 1.2.840.114 [id number] Univers 00:00:00 00:00:00 Management DEREK 350.1.13.10 [place] [facility] [id number] [address] 2021-11-30 2021-11-30 Telephone Yovani Velasquez 1.2.840.11 4 [id number] Univers 00:00:00 00:00:00 DEREK 350.1.13.10 it y of [place] [id number] [address] 2021-11-29 2021-11-29 Outpatient R YOVANI VELASQUEZ [facility] [id number] Univers 08:30:00 09:22:25 ity of [facility] 2021-11-29 2021-11-29 Outpatient R YOVANI VELASQUEZ [facility] [id number] Univers 08:30:00 09:22:25 ity of [facility] 2021-11-29 2021-11-29 Initial Yovani Velasquez [facility] 1.2.840.114 [id number] Univers 08:30:00 09:22:25 DEREK 350.1.13.10 i ty of [place] [id number] [address] 2021-11-29 2021-11-29 Orders Doctor OREN 1.2.840.114 [id number] Univers 00:00:00 00:00:00 Only Unassigned, GARY 350.1.13.10 ity of [place] [facility] 4.2.7.2.686 [place] as [id number] [place] [address] [place] 2021-01-18 2021-01-18 Outpatient JOHN LozanoU [facility] [id number] [facility] 12:48:00 12:48:00 Moshe Iniguez [facility] 2020-03-28 2020-03-28 Laboratory Lab, Adc Fam Pob I [facility] 1.2. 840.114 [id number] Univers 13:39:47 13:59:47 Only Anene, [facility] 350.1.13.10 ity of [place] 4.2.7.2.686 [place] as Professio [id number] Il dical [facility] [address] 2020-03-28 2020-03-28 Laboratory Lab, [facility] 1.2.840.114 [id number] 13:39:47 13:59:47 Only Fam Pob I Health 350.1.13.10 [place] 4.2.7.2.686 Professio [id number] nal [address] 2020-03-28 2020-03-28 Outpatient R KYLEE, [facility] [id number] Univers 13:40:00 13:40:00 BECCA frye of [facility] 2020-03-28 2020-03-28 Letter Doctor OREN 1.2.840.114 [id number] 00:00:00 00:00:00 (Out) Unassigned, GARY 350.1.13.10 [place] [facility] 4.2.7.2.686 [id number] 044 2020-03-28 2020-03-28 Letter Doctor OREN 1.2.840.114 [id number] Univers 00:00:00 00:00:00 (Out) Unassigned, GARY 350.1.13.10 ity of [place] [facility] 4.2.7.2.686 [place] as [id number] [address] Results Test Description Test Time Test Comments Results Result Comments Source CBC with Differential 2022-08-02 11:18:05 Test Item Value Reference Range Interpretation Comme nts WBC (test code = 6690-2) See_Comment H [A utomated message] The system which ge nerated this result transmit dominick reference range: 4.30 - 1 1.10 10*3/?L. The reference r jomar was not used to interpr et this result as normal/abnor mal. RBC (test code = 789-8) See_Comment [Au tomated message] The system which [employer] nerated this result transmit dominick reference range: 3.93 - 5 .25 10*6/?L. The reference r jomar was not used to interpr et this result as normal/abnor mal. HGB (test code = 718-7) 12.7 g/dL 11.6-15.0 HCT (test code = 4544-3) 37.2 % 35.7-45.2 MCV (test code = 787-2) 93.5 fL 80.6-95.5 MCH (test code = 785-6) 31.9 pg 25.9-32.8 MCHC (test code = 786-4) 34.1 g/dL 31.6-35.1 RDW-SD (test code = 67032-5) 42.6 fL 39.0-49.9 RDW-CV (test code = 788-0) 12.3 % 12.0-15.5 PLT (test code = 777-3) See_Comment [Au tomated message] The system which ge nerated this result transmit dominick reference range: 166 - 35 8 10*3/?L. The reference range was not used to interpret th is result as normal/abnormal . MPV (test code = 52867-0) 9.7 fL 9.5-12.9 NRBC/100 WBC (test code = See_Comment [ Automated message] The [id number]) system which ge nerated this result transmit dominick reference range: 0.0 - 10 .0 /100 WBCs. The reference r jomar was not used to interpr et this result as normal/abnor mal. NRBC x10^3 (test code = See_Comment [Au tomated message] The [id number]) system which ge nerated this result transmit dominick reference range: 10*3/?L. The reference range was not u sed to interpret this result as normal/abnormal . GRAN MAT (NEUT) % (test code 79.9 % = 770-8) IMM GRAN % (test code = 0.60 % [id number]) LYMPH % (test code = 736-9) 10.2 % MONO % (test code = 5905-5) 8.9 % EOS % (test code = 713-8) 0.1 % BASO % (test code = 706-2) 0.3 % GRAN MAT x10^3(ANC) (test 12.60 10*3/uL 1.88-7.09 H code = 6013617247) IMM GRAN x10^3 (test code = 0.09 10*3/uL 0.00-0.06 H 1550211059) LYMPH x10^3 (test code = 1.61 10*3/uL 1.32-3.29 731-0) MONO x10^3 (test code = 1.41 10*3/uL 0.33-0.92 H 742-7) EOS x10^3 (test code = 0.03-0.39 L 711-2) BASO x10^3 (test code = 0.04 10*3/uL 0.01-0.07 704-7) Lab Interpretation (test Abnormal code = 67488-4) [facility] [id number] 00:12:19 Test Item Value Reference Range Interpretation Comments ABO & RH (test code A Positive Performe d at [facility] = 20) Laboratory Serv [facility] [address] [place], [place] [phone] Free: [phone] A No. [id number] IAT (test code = Negative Performed a t [facility] 1185) Laboratory Serv [facility] [place] [address]Qxdq Free: [phone] A No. [id number] [facility]/O SPECIFIC [id number] 14:49:00 Test Item Value Reference Range Interpretation Comments POCT PH U (test code = 3254) n/a 5-8 POCT U LEUK EST (test code = n/a Negative - Negative 3263) POCT U NIT (test code = 3262) n/a Negative - Negative POCT U PROT (test code = 3259) trace Negative - Negative POCT U GLU (test code = 3256) negative Negative - Negative POCT U KETONE (test code = 3258) n/a Negative - Negative POCT U BLD (test code = 3257) n/a Negative - Negative [facility] SPECIFIC [id number] 14:22:00 Test Item Value Reference Range Interpretation Comments POCT PH U (test code = 3254) n/a 5-8 POCT U LEUK EST (test code = n/a Negative - Negative 3263) POCT U NIT (test code = 3262) n/a Negative - Negative POCT U PROT (test code = 3259) negative Negative - Negative POCT U GLU (test code = 3256) negative Negative - Negative POCT U KETONE (test code = 3258) n/a Negative - Negative POCT U BLD (test code = 3257) n/a Negative - Negative [facility] URINALYSIS W/O SPECIFIC [id number] 15:08:00 Test Item Value Reference Range Interpretation Comments POCT PH U (test code = 3254) N/A 5-8 POCT U LEUK EST (test code = N/A Negative - Negative 3263) POCT U NIT (test code = 3262) N/A Negative - Negative POCT U PROT (test code = 3259) Negative Negative - Negative POCT U GLU (test code = 3256) Negative Negative - Negative POCT U KETONE (test code = 3258) N/A Negative - Negative POCT U BLD (test code = 3257) N/A Negative - Negative [facility] [id number] 22:45:00 Test Item Value Reference Range Interpretation Comments POCT U SP GRAV (test code = N/A 1.005-1.025 5) POCT PH U (test code = 3254) N/A 5-8 POCT U LEUK EST (test code = N/A Negative - Negative 3263) POCT U NIT (test code = 3262) N/A Negative - Negative POCT U PROT (test code = 3259) Negative Negative - Negative POCT U GLU (test code = 3256) Negative Negative - Negative POCT U KETONE (test code = 3258) N/A Negative - Negative POCT U UROBILI (test code = N/A 0.2-1 0) POCT U BILI (test code = 3261) N/A Negative - Negative POCT U BLD (test code = 3257) N/A Negative - Negative POCT U COLOR (test code = 3266) yellow POCT U APPEAR (test code = 3267) clear [facility] SPECIFIC [id number] 21:32:00 Test Item Value Reference Range Interpretation Comments POCT PH U (test code = 3254) n/a 5-8 POCT U LEUK EST (test code = n/a Negative - Negative 3) POCT U NIT (test code = 3262) n/a Negative - Negative POCT U PROT (test code = 3259) negative Negative - Negative POCT U GLU (test code = 3256) negative Negative - Negative POCT U KETONE (test code = 3258) n/a Negative - Negative POCT U BLD (test code = 3257) n/a Negative - Negative [facility] URINALYSIS W/O SPECIFIC [id number] 22:16:00 Test Item Value Reference Range Interpretation Comments POCT PH U (test code = 3254) n/a 5-8 POCT U LEUK EST (test code = n/a Negative - Negative 3263) POCT U NIT (test code = 3262) n/a Negative - Negative POCT U PROT (test code = 3259) negative Negative - Negative POCT U GLU (test code = 3256) negative Negative - Negative POCT U KETONE (test code = 3258) n/a Negative - Negative POCT U BLD (test code = 3257) n/a Negative - Negative [facility] URINALYSIS W/O SPECIFIC [id number] 22:55:00 Test Item Value Reference Range Interpretation Comments POCT PH U (test code = 3254) N/A 5-8 POCT U LEUK EST (test code = N/A Negative - Negative 3263) POCT U NIT (test code = 3262) N/A Negative - Negative POCT U PROT (test code = 3259) Negative Negative - Negative POCT U GLU (test code = 3256) Negative Negative - Negative POCT U KETONE (test code = 3258) N/A Negative - Negative POCT U BLD (test code = 3257) N/A Negative - Negative [facility] URINALYSIS W/O SPECIFIC [id number] 15:58:00 Test Item Value Reference Range Interpretation Comments POCT PH U (test code = 3254) n/a 5-8 POCT U LEUK EST (test code = n/a Negative - Negative 3263) POCT U NIT (test code = 3262) n/a Negative - Negative POCT U PROT (test code = 3259) Negative Negative - Negative POCT U GLU (test code = 3256) Normal Negative - Negative POCT U KETONE (test code = 3258) n/a Negative - Negative POCT U BLD (test code = 3257) n/a Negative - [facility] [id number] 21:06:00 Test Item Value Reference Range Interpretation Comments POCT PH U (test code = 3254) n/a 5-8 POCT U LEUK EST (test code = n/a Negative - Negative 3263) POCT U NIT (test code = 3262) n/a Negative - Negative POCT U PROT (test code = 3259) trace Negative - Negative POCT U GLU (test code = 3256) negative Negative - Negative POCT U KETONE (test code = 3258) n/a Negative - Negative POCT U BLD (test code = 3257) n/a Negative - Negative [facility] [id number] 21:51:00 Test Item Value Reference Range Interpretation Comments POCT PH U (test code = 3254) n/a 5-8 POCT U LEUK EST (test code = n/a Negative - Negative 3263) POCT U NIT (test code = 3262) n/a Negative - Negative POCT U PROT (test code = 3259) trace Negative - Negative POCT U GLU (test code = 3256) negative Negative - Negative POCT U KETONE (test code = 3258) n/a Negative - Negative POCT U BLD (test code = 3257) n/a Negative - Negative [facility] Notes Date/Time Note Provider Source 2021-01-19 11:16:00-00:00 [id number] [place] [address] PATIENT NAME: SUNNY CORRIGAN ADMIT DATE: 1 ACCOUNT NO: [id number] ROOM NO: AGE: 20 REPORT TYPE: ECHOCARDIOGRAM SEX: F ADMITTING PHYSICIAN: ATTENDING PHYSICIAN:Moshe Trinh MD *[facility]* [address] [place] [address] Transthoracic Echocardiogram Patient: Sunny Corrigan Study Date: 01/18/2021 BP: Location: [facility] URN: [id number] 637 : 2000 Age: 20 Height: 64 in / 162.6 cm Gender: F Weight: 224 .5 lb / 102.1 kg BMI/BSA: 38.6 kg/m 2 / 2.2 m 2 *Ordering Physician: * Moshe Trinh MD *Interpreting Physician: * Moshe Trinh MD *Child Welfare Consultant: * Yelitza Palmer RDCS, RVT Indications: Palpitations. Study data: Transthoracic echocardiogram. Proced ure: Transthoracic echocardiography was performed. Images were obta ined using a [employer] cardiac ultrasound machine. Image quality was adequate. M-mode, complete 2D, complete spectral Doppler, and color Doppler. Lo cation: Echo laboratory. Patient status: Outpatient. Study st atus: Routine. Findings Left ventricle: The cavity size is normal. Wall thickness is normal. The estimated ejection fraction is 60-64%. Wall motion is normal; there are no regional wall motion abnormalities. The p ulmonary vein flow pattern is normal. Left ventricular diastolic fu nction parameters are normal for the patient's age. Right ventricle: The cavity size is normal. Syst olic function is PATIENT NAME: SUNNY CORRIGAN [id number] normal. Ventricular septum: The ventricular septum is no rmal. Left atrium: The atrium is normal in size. Right atrium: The atrium is normal in size. Atrial septum: No defect or patent foramen ovale is identified. Aorta: The aorta is normal. Aortic valve: The valve is trileaflet. The leafl ets are normal thickness. There is no evidence of stenosis. The re is no significant regurgitation. Mitral valve: The leaflets are normal thickness. There is no significant regurgitation. Tricuspid valve: Not well visualized. There is n o significant regurgitation. Pulmonic valve: Not well visualized. There is no significant regurgitation. Pericardium: There is no pericardial effusion. N o evidence of pleural fluid accumulation. Systemic veins: Inferior vena cava: The vessel is normal in size . Measurements Left ventricle Value Ref ALEXIA, LAX 4.6 cm 3.8 - 5.2 ESD, LAX 3.1 cm 2.2 - 3.5 ESD/bsa, LAX 1.4 cm/m 2 1.3 - 2.1 FS, LAX 33 % 27 - 45 ESD/bsa major ax, 2.7 cm/m 2 ------- A4C ALEXIA/bsa minor ax, 2.7 cm/m 2 ------- A4C ALEXIA major ax, A2C 8.0 cm ------- ESD major ax, A2C 6.5 cm ------- ALEXIA/bsa major ax, 3.7 cm/m 2 ------- A2C ESD/bsa major ax, 2.9 cm/m 2 ------- A2C PW, ED 0.9 cm 0.6 - 0.9 PW, ES 1.2 cm ------- IVS/PW, ED 1.05 ------- EF 61 % 54 - 74 E', lat radha, TDI 15.0 cm/sec >=10.0 E/e', lat radha, TDI 7 ------- E', med radha, TDI 12.0 cm/sec >=7.0 E/e', med radha, TDI 8 ------- E', avg, TDI 13.5 cm/sec ------- E/e', avg, TDI 7 <=14 LVOT Value Ref PATIENT NAME: SUNNY CORRIGAN [id number] Diam, S 2.06 cm ------- Area 3.3 cm 2 ------- Peak maki, S 1.34 m/sec ------- Mean maki, S 0.87 m/sec ------- VTI, S 25.2 cm ------- Peak grad, S 7 mm Hg ------- Mean grad, S 3 mm Hg ------- SV 84 ml ------- Qs 7 L/min ------- Qs/bsa 3.2 L/(min-m 2) ------- SV/bsa 38 ml/m 2 ------- Ventricular septum Value Ref IVS, ED 0.9 cm 0.6 - 0.9 IVS, ES 1.0 cm ------- Right ventricle Value Ref ALEXIA, LAX 2.5 cm ------- Left atrium Value Ref Area ES, A4C 16 cm 2 <=20 Right atrium Value Ref Area, ES, A4C 15 cm 2 10 - 18 Aortic valve Value Ref Leaflet sep, MM 1.63 cm ------- Peak v, S 1.53 m/sec ------- Mean v, S 0.96 m/sec ------- VTI, S 27.5 cm ------- Mean grad, S 4.4 mm Hg ------- Peak grad, S 9.3 mm Hg ------- LVOT/AV, VTI ratio 0.91 ------- DEE, VTI 2.87 cm 2 ------- LVOT/AV, Vpeak 0.88 ------- ratio DEE, Vmax 2.85 cm 2 ------- Mitral valve Value Ref Peak E 1.01 m/sec ------- Peak A 0.64 m/sec ------- Mean v, D 0.72 m/sec ------- VTI leaflet coapt 26.9 cm ------- Decel time 152 ms ------- PHT 63 ms ------- Mean grad, D 2.3 mm Hg ------- Peak grad, D 4.4 mm Hg ------- Peak E/A ratio 1.57 ------- MVA, PHT 3.5 cm 2 ------- Pulmonic valve Value Ref LA v, ED 0.83 m/sec ------- PATIENT NAME: SUNNY CORRIGAN [id number] Aortic root Value Ref Root diam, ED MM 2.57 cm ------- Conclusions Summary: Left ventricle: The cavity size is norm al. Wall thickness is normal. The estimated ejection fraction is 60-64 %. Wall motion is normal; there are no regional wall motion abnorm alities. Left ventricular diastolic function parameters are no rmal for the patient's age. Prepared and electronically signed by Moshe Trinh MD 01/19/2021 11:15 at [id number] PATIENT NAME: SUNNY CORRIGAN [id number]
[2022-12-12 11:57] LABS: SARS-CoV-2 Antigen Rapid Res Negative (Negative)
--- NOTE | 2022-12-12 12:04 | ER ---
Nurse's Notes [facility] Name: Melany Corrigan Age: 22 yrs Sex: Female : 2000 Arrival Date: 12/12/2022 Time: 11:08 Bed 10 Private MD: Diagnosis: Acute upper respiratory infection, unspecified Presentation: 12/12 11:18 Chief complaint: Patient states: Sore throat, cough, fatigue, low grade fever for 3 ll1 days. Currently breast feeding. Coronavirus screen: Vaccine status: Patient reports being unvaccinated. Client denies travel out of the [place] in the last 14 days. congestion, cough unrelated to allergies, fatigue, fever, headache, muscle pain, nausea, runny nose, sore throat, Client presents with at least one sign or symptom that may indicate coronavirus-19. Standard/surgical mask placed on the client. Ebola Screen: Patient denies travel to an Ebola-affected area in the 21 days before illness onset. Initial Sepsis Screen: Does the patient meet any 2 criteria? No. Patient's initial sepsis screen is negative. Does the patient have a suspected source of infection? Yes: Productive cough/pneumonia. Risk Assessment: Do you want to hurt yourself or someone else? Patient reports no desire to harm self or others. Onset of symptoms was December 10, 2022. 11:18 Method Of Arrival: Ambulatory ll1 11:18 Acuity: JAVIER 4 ll1 Triage Assessment: 11:21 General: Appears uncomfortable, Behavior is calm, cooperative, appropriate for age. ll1 Pain: Complains of pain in throat Pain currently is 5 out of 10 on a pain scale. Quality of pain is described as aching. EENT: Reports nasal congestion nasal discharge pain when swallowing. Respiratory: Reports cough that is. Historical: - Allergies: 11:17 Codeine; ll1 - PMHx: 11:17 atrial tachycardia; ll1 - PSHx: 11:17 None; ll1 - Immunization history:: Client reports having NOT received the Covid vaccine. Flu vaccine status is unknown. - Social history:: Smoking status: Patient denies any tobacco usage or history of. Screenin:15 [facility] ED Fall Risk Assessment (Adult) History of falling in the last 3 months, iw including since admission No falls in past 3 months (0 pts). Abuse screen: Denies threats or abuse. Denies injuries from another. Nutritional screening: No deficits noted. Tuberculosis screening: No symptoms or risk factors identified. Assessment: 12:00 General: Appears in no apparent distress. Behavior is calm, cooperative. Neuro: Level iw of Consciousness is awake, alert, obeys commands, Oriented to person, place, time, situation, Moves all extremities. Full function. Cardiovascular: Patient's skin is warm and dry. Respiratory: Airway is patent Respiratory effort is even, unlabored, Breath sounds are clear bilaterally. EENT: Throat is clear. Vital Signs: 11:18 BP 125 / 83; Pulse 89; Resp 17; Temp 98.7; Pulse Ox 99% ; Height 5 ft. 5 in. ; Pain ll1 5/10; 11:18 Pain Scale: Adult ll1 ED Course: 11:11 Patient arrived in ED. mr 11:11 Yared Chung MD is Attending Physician. bs3 11:21 Triage completed. ll1 11:21 Arm band placed on Patient placed in an exam room, on a stretcher. 1 11:35 COVID swab sent to lab. Flu and/or RSV swab sent to lab. Strep swab sent to lab. jw7 11:35 Influenza Screen (a \T\ B) Sent. jw7 11:35 SARS-COV-2 Antigen Rapid Sent. jw7 11:35 Strep Sent. jw7 11:59 Michelle Pelaez, RN is Primary Nurse. iw 12:00 Patient has correct armband on for positive identification. iw 12:16 No provider procedures requiring assistance completed. Patient did not have IV access iw during this emergency room visit. Administered Medications: No medications were administered Medication: 06 12:00 VIS not applicable for this client. iw Outcome: 12/12 12:03 Discharge ordered by . bs3 12:16 Discharged to home ambulatory, with family. iw 12:16 Condition: good 12:16 Discharge instructions given to patient, Instructed on discharge instructions, follow up and referral plans. medication usage, Demonstrated understanding of instructions, follow-up care, medications, Prescriptions given X 1. 12:17 Patient left the ED. iw Signatures: Chano Vianney nair Michelle Pelaez, RN CHERIE iw Piyush Monique RN RN ll1 Nany Torres jw7 Yared Chung MD MD bs3
--- NOTE | 2022-12-12 12:04 | EDPHYS ---
Physician Documentation [facility] Name: Melany Corrigan Age: 22 yrs Sex: Female : 2000 Arrival Date: 12/12/2022 Time: 11:08 Bed 10 Private MD: ED Physician Yared Chung HPI: 12/12 12:01 This 22 yrs old Female presents to ER via Ambulatory with complaints of Sore bs3 Throat, Fever, Congestion. 12:01 22-year-old female with cough sore throat nasal congestion and fever for approximately bs3 2 to 3 days fever went away today no difficulty breathing or swallowing she does have pain with swallowing her significant other was sick with what seemed like possible allergies no recent travel denies any changes in her voice any drooling. Historical: - Allergies: 11:17 Codeine; ll1 - PMHx: 11:17 atrial tachycardia; ll1 - PSHx: 11:17 None; ll1 - Immunization history:: Client reports having NOT received the Covid vaccine. Flu vaccine status is unknown. - Social history:: Smoking status: Patient denies any tobacco usage or history of. ROS: 12:01 Constitutional: Negative for fever, chills bs3 12:01 All other systems are negative. Exam: 12:01 Constitutional: This is a well developed, well nourished patient who is awake, alert, bs3 and in no acute distress. No meningismus Head/Face: Normocephalic, atraumatic. Eyes: Pupils equal round and reactive to light, extra-ocular motions intact. Lids and lashes normal. ENT: mmm, no posterior phyarngeal erythema Neck: Trachea midline, no thyromegaly, no neck stiffness Chest/axilla: Normal chest wall appearance and motion. Nontender with no deformity. No lesions are appreciated. Cardiovascular: Regular rate and rhythm with a normal S1 and S2. symmetric pulses in upper extremities Respiratory: Lungs have equal breath sounds bilaterally, clear to auscultation, no respiratory distress Abdomen/GI: Soft, non-tender, no rebound or guarding Skin: Warm, dry with normal turgor. Normal color with no rashes, no lesions, and no evidence of cellulitis. MS/ Extremity: Pulses equal, no cyanosis. Neurovascular intact. Full, normal range of motion. Neuro: Awake and alert, GCS 15, oriented to person, place, time, and situation. Cranial nerves II-XII grossly intact. Motor strength 5/5 in all extremities. Sensory grossly intact. Psych: Awake, alert, with orientation to person, place and time. Behavior, mood, and affect are within normal limits. Vital Signs: 11:18 BP 125 / 83; Pulse 89; Resp 17; Temp 98.7; Pulse Ox 99% ; Height 5 ft. 5 in. ; Pain ll1 5/10; 11:18 Pain Scale: Adult ll1 MDM: 11:11 Patient medically screened. bs3 12:01 Data reviewed: vital signs, nurses notes. ED course: 22-year-old with viral-like bs3 syndrome she has no signs of meningitis or encephalitis her vital signs are normal she is very well-appearing here will evaluate for flu, COVID, strep and reassess work-up negative for flu COVID and strep likely another upper respiratory infection advised [id number] medications return precautions given. 12/12 11:20 Order name: Strep bs3 12/12 11:20 Order name: SARS-COV-2 Antigen Rapid; Complete Time: 12:01 bs3 12/12 11:20 Order name: Influenza Screen (a \T\ B); Complete Time: 12:01 bs3 12/12 11:58 Order name: Throat Culture EDMS Administered Medications: No medications were administered Disposition Summary: 12/12/22 12:03 Discharge Ordered Location: Home bs3 Problem: new bs3 Symptoms: have improved bs3 Condition: Stable bs3 Diagnosis - Acute upper respiratory infection, unspecified bs3 Followup: bs3 - With: Private Physician - When: 1 week - Reason: Re-evaluation by your physician Discharge Instructions: - Discharge Summary Sheet bs3 - Upper Respiratory Infection, Adult bs3 - Viral Respiratory Infection, [id number] bs3 Forms: - Medication Reconciliation Form bs3 - Thank You Letter bs3 - Antibiotic Education bs3 - Prescription Opioid Use bs3 Prescriptions: - Naprosyn 500 mg Oral Tablet - take 1 tablet by ORAL route 2 times per day for 7 days take with food; 14 bs3 tablet; Refills: 0, Product Selection Permitted - Tessalon Perles 100 mg Oral Capsule - take 1 capsule by ORAL route every 8 hours As needed; 15 capsule; Refills: 0, bs3 Product Selection Permitted Signatures: Dispatcher Piyush Hayes, RN RN ll1 Yared Chung MD MD bs3
[2022-12-12 12:22] VITALS: BP 125/83; TEMP 98.7; O2SAT 99
== END 2022-12-12 12:17 | disposition home or self-care (01) ==
LOC: ER 11:08
DX: J06.9 Acute upper respiratory infection, unspecified (principal); Z20.822 Contact with and (suspected) exposure to COVID-19; Z88.5 Allergy status to narcotic agent
CPT/HCPCS: 36415; 87070; 87081; 87804; 87811; 99283

== ENCOUNTER 2023-01-15 21:21 | Emergency (ER) | payer BC ==
--- OUTSIDE RECORDS SUMMARY | 2023-01-15 21:26 | XMS REPORT | Continuity of Care Document ---
:2000 Author Organization [facility] t Address [address] [place] [address] [place] [id number] Care Team Providers Name Role Phone PCP, PATIENT DOES NOT HAVE A Primary Care Physician Unavaila chas Pob, [facility] Main Attending Clinician Unavailable Vivienne Caballero MD Attending Clinician VIVIENNE CABALLERO Attending Clinician Unavailable Jaclyn Lanza NP Attending Clinician Doctor Unassigned, [place] Attending Clinician Unavailable Nurse, [facility] Attending Clinician Unavailable Wilian Beverly MD Attending Clinician [phone], [facility] Attending Clinician Unavailable Ultrasound, [facility] Attending Clinician Unavailable Jagjit Agrawal MD Attending Clinician [phone] JAGJIT AGRAWAL Attending Clinician Unavailable Ultrasound, [facility] Mfm Attending Clinician Unavailable Renee Good MD Attending Clinician RENEE GOOD Attending Clinician Unavailable YOVANI VELASUQEZ Attending Clinician Unavailable Yovani Velasquez MD Attending Clinician Miguel A CRESPO, Jo-Ann Johnson Attending Clinician Unavailable JACLYN LANZA Attending Clinician Unavailable Mariah Nieto MA Attending Clinician Unavailable Moshe Trinh Attending Clinician Unavailable Lab, [facility] Fam Pob I Attending Clinician Unavailable Oziel Lamb Attending Clinician OZIEL ABRAMS Attending Clinician Unavailable VIVIENNE CABALLERO Admitting Clinician Unavailable Vivienne Caballero MD Admitting Clinician Physician, No Primary or Family Admitting Clinician Unavaila ble Payers Payer Name Policy Type Policy Number Effective Date Expiration Date S zeny [facility] [id number] 2021 PPO 00:00:00 Problems Condition Condition Condition Status Onset Resolution Last Treating Co mments Source Name Details Category Date Date Treatment Clinician Date Obesity Obesity Disease Active Univers (BMI (BMI 6-09 ity of 30-39.9) 30-39.9) 00:00: [address] Essential Essential Disease Active Uni vers hypertensi hypertensi 2-19 [place] y [place] [address] [place] [address] Liveborn Liveborn Disease Active Unive rs , of , of 1-26 [place] y of [place] , , [place] born in born in [facility] hospital by vaginal by vaginal delivery delivery Encounter Encounter Disease Active Uni vers for for 1-25 ity of routine routine 00:00: [place] 00 Me dical follow-up follow-up Bran ch BMI BMI Disease Active 2021-07 Univers 35.0-35.9, 35.0-35.9, 1-11 it y of adult adult 00:00: [address] 25 weeks 25 weeks Disease Active 2021-07 Unive rs gestation gestation 0-19 ity of of of 00:00: [place] [facility] Supervisio Supervisio Disease Active 2021-07 U nivers n of high n of high 0-19 ity of risk risk 00:00: [place] [facility] in second in second Bran ch trimester trimester 39 weeks 39 weeks Disease Active 2021-07 Unive rs gestation gestation 0-19 ity of of of 00:00: [place] [facility] Obesity in Obesity in Disease Active U nivers 6-17 ity of 00:: [address] Nausea and Nausea and Disease Active U nivers vomiting vomiting 5-26 ity of in in 00:: [place] 00 [facility] Atrial Atrial Disease Active Univers tachycardi tachycardi 5-26 it y of a a 00:00: [place] [address] Medical [place] Paroxysmal Paroxysmal Disease Active U nivers atrial atrial ity of fibrillati fibrillati [place] on [place] Allergies, Adverse Reactions, Alerts Allergy Allergy Status Severity Reaction(s) Onset Inactive Treating Comm ents Source Name Type Date Date Clinician Codeine Propensi Active Shortness of U nivers ty to Breath - ity of adverse 00:00: [place] reaction 00 [facility] CODEINE DRUG Active SOB Univers INGREDI - ity of 00:00: [address] Social History Social Habit Start Date Stop Date Quantity Comments Source ASSERTION 2021-11-13 [facility] 00:00:00 [facility] Exposure to 2022-12-03 2022-12-13 Not sure [facility] SARS-CoV-2 00:00:00 10:54:00 [facility] (event) [place] Alcohol intake 2022-09-10 2022-09-10 Ex-drinker [facility] 00:00:00 00:00:00 (finding) [facility] Tobacco use and 2022-01-21 2022-01-21 Smokeless tobacco Un iversity of exposure 00:00:00 00:00:00 non-user [facility] Sex Assigned At 2000 2000 Universit y of 00:00:00 00:00:00 [facility] Smoking Status Start Date Stop Date Source Never smoked tobacco [facility] Medications Ordered Filled Start Stop Current Ordering Indication Dosage Frequency Signature Comments Components Source Medication Medication Date Date Medication? Clinician (SIG) Name Name methylergon 2022- No .2mg 0.2 mg, Un zhang ovine 08-02 Intramuscu ity of (METHERGINE 02:45: 01:35 lar, ONCE, [place] ) injection 00 :00 1 dose, On Me dical 0.2 mg [facility] 08/01/22 at 2044, Routine ibuprofen 2022-0 Yes 600mg 600 mg, Univ ers (IBU) 08-02 Oral, ity of tablet 600 01:39: Q6[place]PRN[place] mg 12 Starting Medical on [facility] 08/01/22 at 193, Until Discontinu ed, Routine, Pain (scale 4-6) acetaminoph 2022-0 Yes 650mg 650 mg, Un zhang en 08-02 Oral, ity of (TYLENOL) 01:39: Q6HPRN, [place] tablet 650 12 Starting Medic al mg on [facility] 08/01/22 at 193, Until Discontinu ed, Routine, Pain (scale 1-3) diphenhydrA 2022-0 Yes 25mg 25 mg, Univ ers MINE 08-02 Oral, ity of (BENADRYL) 01:39: Q6HPRN[place] tablet 25 12 Starting Medica l mg on [facility] 08/01/22 at 1938, Until Discontinu ed, Routine, Sleep, Itching ondansetron 2022-0 Yes 4mg 4 mg, Slow Univers (ZOFRAN 08-02 IV Push, ity of (PF)) 01:39: Q8HPRN, [place] injection 4 12 Starting Medi truman mg on [facility] 08/01/22 at 193, Until Discontinu ed, Routine, Nausea and Vomiting (N/V) simethicone 2022-0 Yes 160mg 160 mg, Un zhang (GAS RELIEF 08-02 Oral, ity of (SIMETHICON 01:39: PC+HSPRN, [place] E)) 12 Starting Medical chewable on [facility] tablet 160 08/01/22 at mg 1938, Until Discontinu ed, Routine, Gas docusate 2022-0 Yes 200mg 200 mg, Unive rs (COLACE) 08-02 Oral, ity of capsule 200 01:39: QDAILYPRN, [place] mg 12 Starting Medical on [facility] 08/01/22 at 193, Until Discontinu ed, Routine, Constipati on magnesium 2022-0 Yes 30mL 30 mL, Univer s hydroxide 08-02 Oral, ity of (MILK OF 01:39: QDAILYPRN, [place] as MAGNESIA) 12 Starting Medica l 400 mg/5 mL on [place] [facility] suspension 08/01/22 at 30 mL 1938, Until Discontinu ed, Routine, Constipati on benzocaine- 2022-0 Yes Topical, Un zhang menthol - PRN, ity of (DERMOPLAST 01:39: [place] 20-0.5 % 11 on [place] [facility] topical 08/01/22 at Branch spray 1939, Until Discontinu ed, Routine, Perineum discomfort ibuprofen 2022-0 Yes [id number] 600mg Take 1 Univers 600 mg 1-27 102 tablet by ity of tablet 00:00: mouth [place] 00 every 6 Medical (six) Branch hours as needed (Pain). Take with food or milk. ibuprofen 2022-0 Yes [id number] 600mg Take 1 Univers 600 mg 1-27 102 tablet by ity of tablet 00:00: mouth [place] 00 every 6 Medical (six) Branch hours as needed (Pain). Take with food or milk. ibuprofen 2022-0 Yes [id number] 600mg Take 1 Univers 600 mg 1-27 102 tablet by ity of tablet 00:00: mouth [place] 00 every 6 Medical (six) Branch hours as needed (Pain). Take with food or milk. ibuprofen 2022-0 Yes [id number] 600mg Take 1 Univers 600 mg 1-27 102 tablet by ity of tablet 00:00: mouth [place] 00 every 6 Medical (six) Branch hours as needed (Pain). Take with food or milk. ibuprofen 3-0 Yes [id number] 600mg Take 1 Univers 600 mg 1-27 102 tablet by ity of tablet 00:00: mouth [place] 00 every 6 Medical (six) Branch hours as needed (Pain). Take with food or milk. ibuprofen 3-0 Yes [id number] 600mg Take 1 Univers 600 mg 1-27 102 tablet by ity of tablet 00:00: mouth [place] 00 every 6 Medical (six) Branch hours as needed (Pain). Take with food or milk. ibuprofen 2023-0 Yes [id number] 600mg Take 1 Univers 600 mg 1-27 102 tablet by ity of tablet 00:00: mouth [place] 00 every 6 Medical (six) Branch hours as needed (Pain). Take with food or milk. ibuprofen 2022-0 Yes [id number] 600mg Take 1 Univers 600 mg 1-27 102 tablet by ity of tablet 00:00: mouth [place] 00 every 6 Medical (six) Branch hours as needed (Pain). Take with food or milk. ibuprofen 2022-0 Yes [id number] 600mg Take 1 Univers 600 mg 1-27 [...] [place] 08/01/22 at 2110, Routine, Intra-op fentaNYL-ro 2022-0 2022- No Epidural, Univers pivacaine 2 08-01 CONTINUOUS i ty of mcg/mL-0.1 14:54: 03:10 PRN, [place] % (PF) in 00 :57 Starting Medica l NS 200 mL on [place] [facility] epidural 08/01/22 at infusion 0854, RTU Until [place] 08/01/22 at 2110, Routine, Intra-op fentaNYL-ro 2022-0 2022- No Epidural, Univers pivacaine 2 08-01 ONCE INTRA i ty of mcg/mL-0.1 14:54: 03:10 PROCEDURE, [place] % (PF) in 00 :57 Starting Medica l NS 200 mL on [place] [facility] epidural 08/01/22 at infusion 0854, RTU Until [place] 08/01/22 at 2110, Routine, Intra-op fentaNYL-ro 2022-0 2022- No Epidural, Univers pivacaine 2 08-01 CONTINUOUS i ty of mcg/mL-0.1 14:54: 03:10 PRN, [place] % (PF) in 00 :57 Starting Medica l NS 200 mL on [place] [facility] epidural 08/01/22 at infusion 0854, RTU Until [place] 08/01/22 at 2110, Routine, Intra-op fentaNYL-ro 3-0 2022- No Epidural, Univers pivacaine 2 08-01 ONCE INTRA i ty of mcg/mL-0.1 14:54: 03:10 PROCEDURE, [place] % (PF) in 00 :57 Starting Medica l NS 200 mL on [place] [facility] epidural 08/01/22 at infusion 0854, RTU Until [place] 08/01/22 at 2109, Routine, Intra-op fentaNYL-ro 2022- No Epidural, Univers pivacaine 2 08-01 CONTINUOUS i ty of mcg/mL-0.1 14:54: 03:10 PRN, [place] % (PF) in 00 :57 Starting Medica l NS 200 mL on [place] [facility] epidural 08/01/22 at infusion 0854, RTU Until [place] 08/01/22 at 2109, Routine, Intra-op [...] [place] 08/01/22 at 2109, Routine, Intra-op penicillin 2022-2022- No 310 3 Million U nivers g pot in 08-01 Units, IV ity o f dextrose 3 05:00: 01:40 Piggyback, [place] million 00 :13 Q4H ABX, Medical unit/50 mL First dose Bra nch RTU iv on Wed piggyback 3 07/31/22 at Million 2300, Units [...] 2mU/min at 2-40 Un zhang (PITOCIN) 07-31 01-27 mL/hr, IV ity of 30 units in 22:12: 01:40 Infusion, [place] NS 500 mL 00 :13 TITRATE, Medica l IV infusion Starting Bran ch on Fri07/31/22 at 1612, Until [place] 08/01/22 at 1940, Routine lactated 2022- No 500mL at 999 Unive rs ringers IV 07-31-27 mL/hr, 500 it y of infusion 22:12: 01:40 mL, IV [place] 500 mL 00 :13 Infusion, Medical PRN - SEE Branch INSTRUCTIO NS, Starting on Fri07/31/22 at 1612, Until [place] 08/01/22 at 1940, Routine D5W-LR IV 2022- No 1000mL at 1-125 U nivers infusion 07-31-27 mL/hr, IV ity o f 1,000 mL [...] Routine, Surgery/Pr ocedure aspirin 81 2021-0 Yes [id number] 81mg Take 1 U nivers mg EC 8-18 tablet by ity of tablet 00:00: mouth in [place] [address] the Medical morning. Branch aspirin 81 2021-0 Yes [id number] 81mg Take 1 U nivers mg EC 8-18 tablet by ity of tablet 00:00: mouth in [place] [address] the Medical morning. Branch aspirin 81 2021-0 Yes [id number] 81mg Take 1 U nivers mg EC 8-18 tablet by ity of tablet 00:00: mouth in [place] [address] the Medical morning. Branch aspirin 81 2021-0 Yes [id number] 81mg Take 1 U nivers mg EC 8-18 tablet by ity of tablet 00:00: mouth in [place] 00 the Medical morning. Branch aspirin 81 2021-0 Yes [id number] 81mg Take 1 U nivers mg EC 8-18 tablet by ity of tablet 00:00: mouth in [place] 00 the Medical morning. Branch aspirin 81 2021-0 Yes [id number] 81mg Take 1 U nivers mg EC 8-18 tablet by ity of tablet 00:00: mouth in [place] 00 the Medical morning. Branch aspirin 81 2021-0 Yes [id number] 81mg Take 1 U nivers mg EC 8-18 tablet by ity of tablet 00:00: mouth in [place] 00 the Medical morning. Branch aspirin 81 2021-0 Yes [id number] 81mg Take 1 U nivers mg EC 8-18 tablet by ity of tablet 00:00: mouth in [place] 00 the Medical morning. Branch aspirin 81 2021-0 Yes [id number] 81mg Take 1 U nivers mg EC 8-18 tablet by ity of tablet 00:00: mouth in [place] the Medical morning. Branch aspirin 81 2021-0 Yes [id number] 81mg Take 1 U nivers mg EC 8-18 tablet by ity of tablet 00:00: mouth in [place] the Medical morning. Branch aspirin 81 2021-0 Yes [id number] 81mg Take 1 U nivers mg EC 8-18 tablet by ity of tablet 00:00: mouth in [place] 00 the Medical morning. Branch aspirin 81 2021-0 Yes [id number] 81mg Take 1 U nivers mg EC 8-18 tablet by ity of tablet 00:00: mouth in [place] 00 the Medical morning. Branch aspirin 81 2021-0 Yes [id number] 81mg Take 1 U nivers mg EC 8-18 tablet by ity of tablet 00:00: mouth in [place] 00 the Medical morning. Branch aspirin 81 2-0 Yes [id number] 81mg Take 1 U nivers mg EC 8-18 tablet by ity of tablet 00:00: mouth in [place] 00 the Medical morning. Branch aspirin 81 2-0 Yes [id number] 81mg Take 1 U nivers mg EC 8-18 tablet by ity of tablet 00:00: mouth in [place] 00 the Medical morning. Branch aspirin 81 2-0 Yes [id number] 81mg Take 1 U nivers mg EC 8-18 tablet by ity of tablet 00:00: mouth in [place] 00 the Medical morning. Branch aspirin 81 2022-0 Yes [id number] 81mg Take 1 U nivers mg EC 8-18 tablet by ity of tablet 00:00: mouth in [place] 00 the Medical morning. Branch aspirin 81 2022-0 Yes [id number] 81mg Take 1 U nivers mg EC 8-18 tablet by ity of tablet 00:00: mouth in [place] 00 the Medical morning. Branch aspirin 81 2022-0 Yes [id number] 81mg Take 1 U nivers mg EC 8-18 tablet by ity of tablet 00:00: mouth in [place] 00 the Medical morning. Branch aspirin 81 2022-0 Yes [id number] 81mg Take 1 U nivers mg EC 8-18 tablet by ity of tablet 00:00: mouth in [place] 00 the Medical morning. Branch aspirin 81 2022-0 Yes [id number] 81mg Take 1 U nivers mg EC 8-18 tablet by ity of tablet 00:00: mouth in [place] 00 the Medical morning. Branch aspirin 81 2-0 Yes [id number] 81mg Take 1 U nivers mg EC 8-18 tablet by ity of tablet 00:00: mouth in [place] 00 the Medical morning. Branch aspirin 81 2-0 Yes [id number] 81mg Take 1 U nivers mg EC 8-18 tablet by ity of tablet 00:00: mouth in [place] 00 the Medical morning. Branch aspirin 81 2022-0 Yes [id number] 81mg Take 1 U nivers mg EC 8-18 tablet by ity of tablet 00:00: mouth in [place] 00 the Medical morning. Branch aspirin 81 2022-0 Yes [id number] 81mg Take 1 U nivers mg EC 8-18 tablet by ity of tablet 00:00: mouth in [place] 00 the Medical morning. Branch aspirin 81 2022-0 Yes [id number] 81mg Take 1 U nivers mg EC 8-18 tablet by ity of tablet 00:00: mouth in [place] 00 the Medical morning. Branch aspirin 81 2022-0 Yes [id number] 81mg Take 1 U nivers mg EC 8-18 tablet by ity of tablet 00:00: mouth in [place] 00 the Medical morning. Branch aspirin 81 2022-0 Yes [id number] 81mg Take 1 U nivers mg EC 8-18 tablet by ity of tablet 00:00: mouth in [place] 00 the Medical morning. Branch aspirin 81 2021-0 Yes [id number] 81mg Take 1 U nivers mg EC 8-18 tablet by ity of tablet 00:00: mouth in [place] the Medical morning. Branch aspirin 81 2021-0 Yes [id number] 81mg Take 1 U nivers mg EC 8-18 tablet by ity of tablet 00:00: mouth in [place] the Medical morning. Branch aspirin 81 2021-0 Yes [id number] 81mg Take 1 U nivers mg EC 8-18 tablet by ity of tablet 00:00: mouth in [place] the Medical morning. Branch aspirin 81 2021-0 Yes [id number] 81mg Take 1 U nivers mg EC 8-18 tablet by ity of tablet 00:00: mouth in [place] the Medical morning. Branch aspirin 81 2021-0 Yes [id number] 81mg Take 1 U nivers mg EC 8-18 tablet by ity of tablet 00:00: mouth in [place] the Medical morning. Branch aspirin 81 2021-0 Yes [id number] 81mg Take 1 U nivers mg EC 8-18 tablet by ity of tablet 00:00: mouth in [place] the Medical morning. [place] ondansetron 2021-0 2021- No [id number] 4mg Take 1 Univers 4 mg 7-31 08-18 tablet by ity of disintegrat 00:00: 00:00 [place] tablet 00 :00 every 8 Medica l (eight) Branch hours as needed for Nausea and Vomiting (N/V). ondansetron 2021-0 2021- No [id number] 4mg Take 1 Univers 4 mg 7-05 07-24 tablet by ity of disintegrat 00:00: 00:00 [place] tablet 00 :00 every 8 Medica l (eight) Branch hours as needed for Nausea and Vomiting (N/V). azithromyci 2021-0 2021- No [id number] 1000mg Take 2 Univers n 500 mg 5-27 05-28 4102 tablets by ity of tablet 00:00: 04:59 mouth [place] 00 :00 now for 1 Medical dose. [place] 2021-0 Yes [id number] 1{packe Take 1 Univers vit 5-26 t} Packet by ity of 33-iron-fol 00:00: mouth [place] ic-dha 00 daily. Medical (SELECT-OB Branch + DHA) 29 mg iron-1 mg -250 mg combo pack Yes [id number] 1{packe Take 1 Univers vit 5-26 t} Packet by ity of 33-iron-fol 00:00: mouth [place] ic-dha 00 daily. Medical (SELECT-OB Branch + DHA) 29 mg iron-1 mg -250 mg combo pack Yes [id number] 1{packe Take 1 Univers vit 5-26 t} Packet by ity of 33-iron-fol 00:00: mouth [place] ic-dha 00 daily. Medical (SELECT-OB Branch + DHA) 29 mg iron-1 mg -250 mg combo pack Yes [id number] 1{packe Take 1 Univers vit 5-26 t} Packet by ity of 33-iron-fol 00:00: mouth [place] ic-dha 00 daily. Medical (SELECT-OB Branch + DHA) 29 mg iron-1 mg -250 mg combo pack Yes [id number] 1{packe Take 1 Univers vit 5-26 t} Packet by ity of 33-iron-fol 00:00: mouth [place] ic-dha 00 daily. Medical (SELECT-OB Branch + DHA) 29 mg iron-1 mg -250 mg combo pack Yes [id number] 1{packe Take 1 Univers vit 5-26 t} Packet by ity of 33-iron-fol 00:00: mouth [place] ic-dha 00 daily. Medical (SELECT-OB Branch + DHA) 29 mg iron-1 mg -250 mg combo pack Yes [id number] 1{packe Take 1 Univers vit 5-26 t} Packet by ity of 33-iron-fol 00:00: mouth [place] ic-dha 00 daily. Medical (SELECT-OB Branch + DHA) 29 mg iron-1 mg -250 mg combo pack Yes [id number] 1{packe Take 1 Univers vit 5-26 t} Packet by ity of 33-iron-fol 00:00: mouth [place] ic-dha 00 daily. Medical (SELECT-OB Branch + DHA) 29 mg iron-1 mg -250 mg combo pack Yes [id number] 1{packe Take 1 Univers vit 5-26 t} Packet by ity of 33-iron-fol 00:00: mouth [place] ic-dha 00 daily. Medical (SELECT-OB Branch + DHA) 29 mg iron-1 mg -250 mg combo pack Yes [id number] 1{packe Take 1 Univers vit 5-26 t} Packet by ity of 33-iron-fol 00:00: mouth [place] ic-dha 00 daily. Medical (SELECT-OB Branch + DHA) 29 mg iron-1 mg -250 mg combo pack Yes [id number] 1{packe Take 1 Univers vit 5-26 t} Packet by ity of 33-iron-fol 00:00: mouth [place] ic-dha 00 daily. Medical (SELECT-OB Branch + DHA) 29 mg iron-1 mg -250 mg combo pack Yes [id number] 1{packe Take 1 Univers vit 5-26 t} Packet by ity of 33-iron-fol 00:00: mouth [place] ic-dha 00 daily. Medical (SELECT-OB Branch + DHA) 29 mg iron-1 mg -250 mg combo pack Yes [id number] 1{packe Take 1 Univers vit 5-26 t} Packet by ity of 33-iron-fol 00:00: mouth [place] ic-dha 00 daily. Medical (SELECT-OB Branch + DHA) 29 mg iron-1 mg -250 mg combo pack Yes [id number] 1{packe Take 1 Univers vit 5-26 t} Packet by ity of 33-iron-fol 00:00: mouth [place] ic-dha 00 daily. Medical (SELECT-OB Branch + DHA) 29 mg iron-1 mg -250 mg combo pack Yes [id number] 1{packe Take 1 Univers vit 5-26 t} Packet by ity of 33-iron-fol 00:00: mouth [place] ic-dha 00 daily. Medical (SELECT-OB Branch + DHA) 29 mg iron-1 mg -250 mg combo pack Yes [id number] 1{packe Take 1 Univers vit 5-26 t} Packet by ity of 33-iron-fol 00:00: mouth [place] ic-dha 00 daily. Medical (SELECT-OB Branch + DHA) 29 mg iron-1 mg -250 mg combo pack Yes [id number] 1{packe Take 1 Univers vit 5-26 t} Packet by ity of 33-iron-fol 00:00: mouth [place] ic-dha 00 daily. Medical (SELECT-OB Branch + DHA) 29 mg iron-1 mg -250 mg combo pack Yes [id number] 1{packe Take 1 Univers vit 5-26 t} Packet by ity of 33-iron-fol 00:00: mouth [place] ic-dha 00 daily. Medical (SELECT-OB Branch + DHA) 29 mg iron-1 mg -250 mg combo pack Yes [id number] 1{packe Take 1 Univers vit 5-26 t} Packet by ity of 33-iron-fol 00:00: mouth [place] ic-dha 00 daily. Medical (SELECT-OB Branch + DHA) 29 mg iron-1 mg -250 mg combo pack Yes [id number] 1{packe Take 1 Univers vit 5-26 t} Packet by ity of 33-iron-fol 00:00: mouth [place] ic-dha 00 daily. Medical (SELECT-OB Branch + DHA) 29 mg iron-1 mg -250 mg combo pack Yes [id number] 1{packe Take 1 Univers vit 5-26 t} Packet by ity of 33-iron-fol 00:00: mouth [place] ic-dha 00 daily. Medical (SELECT-OB Branch + DHA) 29 mg iron-1 mg -250 mg combo pack Yes [id number] 1{packe Take 1 Univers vit 5-26 t} Packet by ity of 33-iron-fol 00:00: mouth [place] ic-dha 00 daily. Medical (SELECT-OB Branch + DHA) 29 mg iron-1 mg -250 mg combo pack Yes [id number] 1{packe Take 1 Univers vit 5-26 t} Packet by ity of 33-iron-fol 00:00: mouth [place] ic-dha 00 daily. Medical (SELECT-OB Branch + DHA) 29 mg iron-1 mg -250 mg combo pack Yes [id number] 1{packe Take 1 Univers vit 5-26 t} Packet by ity of 33-iron-fol 00:00: mouth [place] ic-dha 00 daily. Medical (SELECT-OB Branch + DHA) 29 mg iron-1 mg -250 mg combo pack Yes [id number] 1{packe Take 1 Univers vit 5-26 t} Packet by ity of 33-iron-fol 00:00: mouth [place] ic-dha 00 daily. Medical (SELECT-OB Branch + DHA) 29 mg iron-1 mg -250 mg combo pack Yes [id number] 1{packe Take 1 Univers vit 5-26 t} Packet by ity of 33-iron-fol 00:00: mouth [place] ic-dha 00 daily. Medical (SELECT-OB Branch + DHA) 29 mg iron-1 mg -250 mg combo pack Yes [id number] 1{packe Take 1 Univers vit 5-26 t} Packet by ity of 33-iron-fol 00:00: mouth [place] ic-dha 00 daily. Medical (SELECT-OB Branch + DHA) 29 mg iron-1 mg -250 mg combo pack Yes [id number] 1{packe Take 1 Univers vit 5-26 t} Packet by ity of 33-iron-fol 00:00: mouth [place] ic-dha 00 daily. Medical (SELECT-OB Branch + DHA) 29 mg iron-1 mg -250 mg combo pack Yes [id number] 1{packe Take 1 Univers vit 5-26 t} Packet by ity of 33-iron-fol 00:00: mouth [place] ic-dha 00 daily. Medical (SELECT-OB Branch + DHA) 29 mg iron-1 mg -250 mg combo pack Yes [id number] 1{packe Take 1 Univers vit 5-26 t} Packet by ity of 33-iron-fol 00:00: mouth [place] ic-dha 00 daily. Medical (SELECT-OB Branch + DHA) 29 mg iron-1 mg -250 mg combo pack Yes [id number] 1{packe Take 1 Univers vit 5-26 t} Packet by ity of 33-iron-fol 00:00: mouth [place] ic-dha 00 daily. Medical (SELECT-OB Branch + DHA) 29 mg iron-1 mg -250 mg combo pack Yes [id number] 1{packe Take 1 Univers vit 5-26 t} Packet by ity of 33-iron-fol 00:00: mouth [place] ic-dha 00 daily. Medical (SELECT-OB Branch + DHA) 29 mg iron-1 mg -250 mg combo pack Yes [id number] 1{packe Take 1 Univers vit 5-26 t} Packet by ity of 33-iron-fol 00:00: mouth [place] ic-dha 00 daily. Medical (SELECT-OB Branch + DHA) 29 mg iron-1 mg -250 mg combo pack Yes [id number] 1{packe Take 1 Univers vit 5-26 t} Packet by ity of 33-iron-fol 00:00: mouth [place] ic-dha 00 daily. Medical (SELECT-OB Branch + DHA) 29 mg iron-1 mg -250 mg combo pack Yes [id number] 1{packe Take 1 Univers vit 5-26 t} Packet by ity of 33-iron-fol 00:00: mouth [place] ic-dha 00 daily. Medical (SELECT-OB Branch + DHA) 29 mg iron-1 mg -250 mg combo pack Yes [id number] 1{packe Take 1 Univers vit 5-26 t} Packet by ity of 33-iron-fol 00:00: mouth [place] ic-dha 00 daily. Medical (SELECT-OB Branch + DHA) 29 mg iron-1 mg -250 mg combo pack pyridoxine, 2021- No [id number] 25mg Take 1 Univers VITAMIN 5-26 07-22 tablet by ity of B-6, 25 mg 00:00: 00:00 mouth 3 [place] tablet 00 :00 (three) Medical times Branch daily. doxylamine 2021- No [id number] 25mg Take 1 Univers 25 mg 5-26 07-22 tablet by ity of tablet 00:00: 00:00 mouth at [place] 00 :00 bedtime. Medical Branch pyridoxine, 2021- No [id number] 25mg Take 1 Univers VITAMIN 5-26 07-22 tablet by ity of B-6, 25 mg 00:00: 00:00 mouth 3 [place] tablet 00 :00 (three) Medical times Branch daily. doxylamine 2021- No [id number] 25mg Take 1 Univers 25 mg 11-29 tablet by ity of tablet 00:00: 00:00 mouth at [place] 00 :00 bedtime. Medical Branch labetaloL 0 Yes Univers 100 mg 4-19 ity of tablet 00:00: [place] [facility] labetaloL 2021-0 Yes Univers 100 mg 4-19 ity of tablet 00:00: [place] [facility] labetaloL 2021-0 Yes Univers 100 mg 4-19 ity of tablet 00:00: [place] Medical Branch labetaloL 2021-0 Yes Univers 100 mg 4-19 ity of tablet 00:00: [place] Medical Branch labetaloL 2021-0 Yes Univers 100 mg 4-19 ity of tablet 00:00: [place] Medical Branch labetaloL 2021-0 Yes Univers 100 mg 4-19 ity of tablet 00:00: [place] [address] [facility] labetaloL 2021-0 Yes Univers 100 mg 4-19 ity of tablet 00:00: [place] [address] [facility] labetaloL 2021-0 Yes Univers 100 mg 4-19 ity of tablet 00:00: [place] [address] [facility] labetaloL 2021-0 Yes Univers 100 mg 4-19 ity of tablet 00:00: [place] [address] [facility] labetaloL 2021-0 Yes Univers 100 mg 4-19 ity of tablet 00:00: [place] [address] [facility] labetaloL 2021-0 Yes Univers 100 mg 4-19 ity of tablet 00:00: [place] [facility] labetaloL 2021-0 Yes Univers 100 mg 4-19 ity of tablet 00:00: [place] [facility] labetaloL 2021-0 Yes Univers 100 mg 4-19 ity of tablet 00:00: [place] [address] [facility] labetaloL 2021-0 Yes Univers 100 mg 4-19 ity of tablet 00:00: [place] [address] [facility] labetaloL 2021-0 Yes Univers 100 mg 4-19 ity of tablet 00:00: [place] [address] [facility] labetaloL 2021-0 Yes Univers 100 mg 4-19 ity of tablet 00:00: [place] [address] [facility] labetaloL 2021-0 Yes Univers 100 mg 4-19 ity of tablet 00:00: [place] [address] [facility] labetaloL 2021-0 Yes Univers 100 mg 4-19 ity of tablet 00:00: [place] [facility] labetaloL 2021-0 Yes Univers 100 mg 4-19 ity of tablet 00:00: [place] [facility] labetaloL 2021-0 Yes Univers 100 mg 4-19 ity of tablet 00:00: [place] [facility] labetaloL 2021-0 Yes Univers 100 mg 4-19 ity of tablet 00:00: [place] [facility] labetaloL 2021-0 Yes Univers 100 mg 4-19 ity of tablet 00:00: [place] [facility] labetaloL 2021-0 Yes Univers 100 mg 4-19 ity of tablet 00:00: [place] [facility] labetaloL 2021-0 Yes Univers 100 mg 4-19 ity of tablet 00:00: [place] [facility] labetaloL 2021-0 Yes Univers 100 mg 4-19 ity of tablet 00:00: [place] [facility] labetaloL 2021-0 Yes Univers 100 mg 4-19 ity of tablet 00:00: [place] [facility] labetaloL 2021-0 Yes Univers 100 mg 4-19 ity of tablet 00:00: [place] [address] [facility] labetaloL 2021-0 Yes Univers 100 mg 4-19 ity of tablet 00:00: [place] [facility] labetaloL 2021-0 Yes Univers 100 mg 4-19 ity of tablet 00:00: [place] [facility] labetaloL 2021-0 Yes Univers 100 mg 4-19 ity of tablet 00:00: [place] [facility] labetaloL 2021-0 Yes Univers 100 mg 4-19 ity of tablet 00:00: [place] [facility] labetaloL 2021-0 Yes Univers 100 mg 4-19 ity of tablet 00:00: [place] [address] [facility] labetaloL 2021-0 Yes Univers 100 mg 4-19 ity of tablet 00:00: [place] [facility] labetaloL 2021-0 Yes Univers 100 mg 4-19 ity of tablet 00:00: [place] [facility] labetaloL 2021-0 Yes Univers 100 mg 4-19 ity of tablet 00:00: [place] [address] [facility] labetaloL 2021-0 Yes Univers 100 mg 4-19 ity of tablet 00:00: [place] 00 [facility] Immunizations Ordered Filled Immunization Date Status [facility] e Immunization Name Name TDAP 2022-05-17 Completed University of 00:00:00 [facility] TDAP 2022-05-17 Completed University of 00:00:00 [facility] TDAP 2022-05-17 Completed University of 00:00:00 [facility] TDAP 2022-05-17 Completed University of 00:00:00 [facility] TDAP 2022-05-17 Completed University of 00:00:00 [place] [facility] TDAP 2022-05-17 Completed University of 00:00:00 [place] [facility] TDAP 2022-05-17 Completed University of 00:00:00 [facility] TDAP 2022-05-17 Completed University of 00:00:00 [facility] TDAP 2022-05-17 Completed University of 00:00:00 [facility] TDAP 2022-05-17 Completed University of 00:00:00 [facility] TDAP 2022-05-17 Completed University of 00:00:00 [facility] TDAP 2022-05-17 Completed University of 00:00:00 [facility] TDAP 2022-05-17 Completed University of 00:00:00 [facility] TDAP 2022-05-17 Completed University of 00:00:00 [facility] TDAP 2022-05-17 Completed University of 00:00:00 [facility] TDAP 2022-05-17 Completed University of 00:00:00 [facility] TDAP 2022-05-17 Completed University of 00:00:00 [facility] TDAP 2022-05-17 Completed University of 00:00:00 [facility] TDAP 2022-05-17 Completed University of 00:00:00 [place] [facility] TDAP 2022-05-17 Completed University of 00:00:00 [facility] TDAP 2022-05-17 Completed University of 00:00:00 [facility] TDAP 2022-05-17 Completed University of 00:00:00 [facility] TDAP 2022-05-17 Completed University of 00:00:00 [facility] TDAP 2022-05-17 Completed University of 00:00:00 [facility] TDAP 2022-05-17 Completed University of 00:00:00 [place] [facility] TDAP 2022-05-17 Completed University of 00:00:00 [place] [facility] Vital Signs Vital Name Observation Time Observation Value Comments Source Systolic blood 2022-12-13 16:40:00 138 mm[Hg] Univer sity of pressure [place] [facility] Diastolic blood 2022-12-13 16:40:00 88 mm[Hg] Unive rsity of pressure [place] [facility] Heart rate 2022-12-13 16:40:00 76 /min Universi ty of [place] [facility] Body temperature 2022-12-13 16:40:00 36.72 Marisol Univ ersity of [place] [facility] Respiratory rate 2022-12-13 16:40:00 18 /min Univ ersity of [place] [facility] Body height 2022-12-13 16:40:00 165.1 cm Universi ty of [place] [facility] Body weight 2022-12-13 16:40:00 107.23 kg Universi ty of [place] [facility] BMI 2022-12-13 16:40:00 39.34 kg/m2 [facility]i ty [facility] [place] [facility] Systolic blood 2022-09-10 17:10:00 121 mm[Hg] Univer sity of pressure [place] [facility] Diastolic blood 2022-09-10 17:10:00 80 mm[Hg] Unive rsity of pressure [place] [facility] Heart rate 2022-09-10 17:10:00 83 /min Universi ty of [place] [facility] Body temperature 2022-09-10 17:10:00 36.83 Marisol Univ ersity of [place] [facility] Respiratory rate 2022-09-10 17:10:00 17 /min Univ ersity of [place] [facility] Body height 2022-09-10 17:10:00 165.1 cm Universi ty of [place] [facility] Body weight 2022-09-10 17:10:00 99.338 kg [facility]i [facility] [place] [facility] BMI 2022-09-10 17:10:00 36.44 kg/m2 [facility]i ty of [place] [facility] Systolic blood 2022-08-21 16:41:00 116 mm[Hg] Univer sity of pressure [place] [facility] Diastolic blood 2022-08-21 16:41:00 79 mm[Hg] Unive rsity of pressure [place] [facility] Heart rate 2022-08-21 16:41:00 88 /min Universi ty of [place] [facility] Body temperature 2022-08-21 16:41:00 36.72 Marisol Univ ersity of [place] [facility] Respiratory rate 2022-08-21 16:41:00 17 /min Univ ersity of [place] [facility] Body height 2022-08-21 16:41:00 165.1 cm [facility]i ty of [place] [facility] [place] Body weight 2022-08-21 16:41:00 97.977 kg Universi ty of [place] [facility] BMI 2022-08-21 16:41:00 35.94 kg/m2 Universi ty of [facility] Systolic blood 2022-08-06 15:53:00 132 mm[Hg] Univer sity of pressure [place] [facility] Diastolic blood 2022-08-06 15:53:00 88 mm[Hg] Unive rsity of pressure [facility] Heart rate 2022-08-06 15:53:00 96 /min Universi ty of [place] [facility] [place] Body temperature 2022-08-06 15:53:00 36.72 Marisol Univ ersity of [facility] Respiratory rate 2022-08-06 15:53:00 18 /min Univ ersity of [facility] Body height 2022-08-06 15:53:00 165.1 cm Universi ty of [place] [facility] [place] Body weight 2022-08-06 15:53:00 102.83 kg Universi ty of [place] [facility] BMI 2022-08-06 15:53:00 37.72 kg/m2 Universi ty of [place] [facility] [place] Systolic blood 2022-08-03 02:00:00 135 mm[Hg] Univer sity of pressure [facility] Diastolic blood 2022-08-03 02:00:00 86 mm[Hg] Unive rsity of pressure [facility] Heart rate 2022-08-03 02:00:00 74 /min Universi ty of [place] [facility] [place] Body temperature 2022-08-03 02:00:00 36.22 Marisol Univ ersity of [facility] Respiratory rate 2022-08-03 02:00:00 18 /min Univ ersity of [facility] Oxygen saturation in 2022-08-03 02:00:00 100 /min University of Arterial blood by [facility] Pulse oximetry Branch Body height 2022-07-31 22:01:00 165.1 cm Universi ty of [facility] Body weight 2022-07-31 22:01:00 109.77 kg Universi ty of [place] [facility] BMI 2022-07-31 22:01:00 40.27 kg/m2 Universi ty of [place] [facility] Systolic blood 2022-07-30 14:52:00 125 mm[Hg] Univer sity of pressure [place] [facility] Diastolic blood 2022-07-30 14:52:00 89 mm[Hg] Unive rsity of pressure [place] [facility] Heart rate 2022-07-30 14:52:00 80 /min Universi ty of [facility] Body temperature 2022-07-30 14:52:00 36.89 Marisol Univ ersity of [facility] Respiratory rate 2022-07-30 14:52:00 18 /min Univ ersity of [facility] Body height 2022-07-30 14:52:00 165.1 cm Universi ty of [facility] Body weight 2022-07-30 14:52:00 110.859 kg Universi ty of [facility] BMI 2022-07-30 14:52:00 40.67 kg/m2 Universi ty of [facility] Systolic blood 2022-07-23 14:15:00 134 mm[Hg] Univer sity of pressure [place] [facility] Diastolic blood 2022-07-23 14:15:00 88 mm[Hg] Unive rsity of pressure [facility] Heart rate 2022-07-23 14:15:00 80 /min Universi ty of [place] [facility] [place] Body temperature 2022-07-23 14:15:00 36.83 Marisol Univ ersity of [facility] Respiratory rate 2022-07-23 14:15:00 16 /min Univ ersity of [facility] Body height 2022-07-23 14:15:00 165.1 cm Universi ty of [place] [facility] Body weight 2022-07-23 14:15:00 109.907 kg [facility]i ty of [place] [facility] BMI 2022-07-23 14:15:00 40.32 kg/m2 Universi ty of [facility] Oxygen saturation in 2022-07-23 14:15:00 98 /min University of Arterial blood by [facility] Pulse oximetry Branch Systolic blood 2022-07-17 15:07:00 128 mm[Hg] Univer sity of pressure [facility] Diastolic blood 2022-07-17 15:07:00 85 mm[Hg] Unive rsity of pressure [place] [facility] Heart rate 2022-07-17 15:07:00 88 /min Universi ty of [place] [facility] Body temperature 2022-07-17 15:07:00 36.89 Marisol Univ ersity of [place] [facility] Respiratory rate 2022-07-17 15:07:00 18 /min Univ ersity of [place] [facility] Body height 2022-07-17 15:07:00 165.1 cm Universi ty of [place] [facility] Body weight 2022-07-17 15:07:00 109.77 kg Universi ty of [place] [facility] BMI 2022-07-17 15:07:00 40.27 kg/m2 Universi ty of [facility] Systolic blood 2022-07-10 22:34:00 124 mm[Hg] Univer sity of pressure [place] [facility] Diastolic blood 2022-07-10 22:34:00 82 mm[Hg] Unive rsity of pressure [facility] Heart rate 2022-07-10 22:34:00 103 /min Universi ty of [place] [facility] Body height 2022-07-10 22:34:00 165.1 cm [facility]i ty [facility] [place] [facility] Body weight 2022-07-10 22:34:00 107.956 kg [facility]i ty [facility] [place] [facility] BMI 2022-07-10 22:34:00 39.61 kg/m2 [facility]i ty [facility] [place] [facility] [place] Oxygen saturation in 2022-07-10 22:34:00 98 /min [facility] Arterial blood by [facility] Pulse oximetry Branch Systolic blood 2022-07-03 21:22:00 131 mm[Hg] Univer sity of pressure [facility] Diastolic blood 2022-07-03 21:22:00 88 mm[Hg] Unive rsity of pressure [facility] Heart rate 2022-07-03 21:22:00 85 /min Universi ty of [place] [facility] Body temperature 2022-07-03 21:22:00 37.11 Marisol Univ ersity of [place] [facility] Respiratory rate 2022-07-03 21:22:00 16 /min Univ ersity of [place] [facility] Body height 2022-07-03 21:22:00 165.1 cm [facility]i ty [facility] [place] [facility] Body weight 2022-07-03 21:22:00 107.684 kg Universi ty of [place] [facility] BMI 2022-07-03 21:22:00 39.51 kg/m2 Universi ty of [place] [facility] Oxygen saturation in 2022-07-03 21:22:00 100 /min University of Arterial blood by [facility] Pulse oximetry Branch Systolic blood 2022-06-19 22:11:00 129 mm[Hg] Univer sity of pressure [place] [facility] Diastolic blood 2022-06-19 22:11:00 86 mm[Hg] Unive rsity of pressure [place] [facility] Heart rate 2022-06-19 22:11:00 82 /min Universi ty of [place] [facility] Body temperature 2022-06-19 22:11:00 36.72 Marisol Univ ersity of [place] [facility] Respiratory rate 2022-06-19 22:11:00 16 /min Univ ersity of [place] [facility] Body height 2022-06-19 22:11:00 165.1 cm [facility]i ty [facility] [place] [facility] Body weight 2022-06-19 22:11:00 107.276 kg [facility]i ty [facility] [place] [facility] BMI 2022-06-19 22:11:00 39.36 kg/m2 [facility]i ty [facility] [place] [facility] Oxygen saturation in 2022-06-19 22:11:00 98 /min University of Arterial blood by [facility] Pulse oximetry Branch Systolic blood 2022-06-05 22:51:00 122 mm[Hg] Univer sity of pressure [place] [facility] Diastolic blood 2022-06-05 22:51:00 82 mm[Hg] Unive rsity of pressure [place] [facility] Heart rate 2022-06-05 22:51:00 81 /min Universi ty of [place] [facility] Body temperature 2022-06-05 22:51:00 36.94 Marisol Univ ersity of [place] [facility] Respiratory rate 2022-06-05 22:51:00 18 /min Univ ersity of [place] [facility] Body height 2022-06-05 22:51:00 165.1 cm [facility]i ty of [place] [facility] Body weight 2022-06-05 22:51:00 109.77 kg Universi ty of [place] [facility] BMI 2022-06-05 22:51:00 40.27 kg/m2 Universi ty of [place] [facility] Systolic blood 2022-05-17 15:59:00 129 mm[Hg] Univer sity of pressure [place] [facility] Diastolic blood 2022-05-17 15:59:00 85 mm[Hg] Unive rsity of pressure [place] [facility] Heart rate 2022-05-17 15:59:00 84 /min Universi ty of [place] [facility] Body temperature 2022-05-17 15:59:00 36.89 Marisol Univ ersity of [place] [facility] Body height 2022-05-17 15:59:00 165.1 cm [facility] ty [facility] [place] [facility] Body weight 2022-05-17 15:59:00 106.777 kg [facility]i ty [facility] [place] [facility] BMI 2022-05-17 15:59:00 39.17 kg/m2 [facility] ty [facility] [place] [facility] Systolic blood 2022-04-24 21:02:00 121 mm[Hg] Univer sity of pressure [place] [facility] Diastolic blood 2022-04-24 21:02:00 80 mm[Hg] Unive rsity of pressure [place] [facility] Heart rate 2022-04-24 21:02:00 89 /min [facility]i ty [facility] [place] [facility] Body temperature 2022-04-24 21:02:00 37 Marisol Univ ersity of [place] [facility] Respiratory rate 2022-04-24 21:02:00 16 /min Univ ersity of [place] [facility] Body height 2022-04-24 21:02:00 165.1 cm [facility]i ty [facility] [place] [facility] Body weight 2022-04-24 21:02:00 105.189 kg [facility]i ty [facility] [place] [facility] BMI 2022-04-24 21:02:00 38.59 kg/m2 [facility] ty [facility] [place] [facility] Oxygen saturation in 2022-04-24 21:02:00 98 /min University Arterial blood by [facility] Pulse oximetry Branch Systolic blood 2022-03-21 21:42:00 124 mm[Hg] Univer sity of pressure [place] [facility] Diastolic blood 2022-03-21 21:42:00 86 mm[Hg] Unive rsity of pressure [facility] Heart rate 2022-03-21 21:42:00 89 /min Universi ty [facility] [place] [facility] Body temperature 2022-03-21 21:42:00 36.72 Marisol Univ ersity of [facility] Respiratory rate 2022-03-21 21:42:00 16 /min [facility] Body height 2022-03-21 21:42:00 165.1 cm [facility] Body weight 2022-03-21 21:42:00 106.142 kg [facility] BMI 2022-03-21 21:42:00 38.94 kg/m2 [facility] Oxygen saturation in 2022-03-21 21:42:00 99 /min [facility] Arterial blood by [facility] Pulse oximetry Branch Procedures Procedure Date / Time Performed Performing Clinician Noy reyes POCT TEST 2022-12-13 00:00:00 Adum, Vivienne Johnson [facility] DIABETES TESTING 2022-08-20 06:01:00 Doctor Unassigned, No Unive [facility] REPORTS [facility] CBC WITH DIFF 2022-08-02 10:45:00 Adum, [facility] o f [facility] CENTRAL NEURAXIAL 2022-08-01 14:30:00 Rush, [facility] CBC WITH DIFF 2022-07-31 22:47:00 Adum, Vivienne [place] o f [facility] HEPATITIS B SURFACE 2022-07-31 22:47:00 Adum, Vivienne Johnson [facility] ANTIGEN [facility] ADC OR MARIALUISA ONLY - 2022-07-31 22:47:00 Adum, Vivienne Johnson [facility] RPR [facility] HIV 1/2 AG-AB WITH 2022-07-31 22:47:00 Adum, Vivienne Johnson [facility] REFLEX [facility] HB ABO GROUPING 2022-07-31 22:20:00 Adum, Vivienne [place] o f [facility] HOSPITAL ADMISSION 2022-07-31 06:01:00 Doctor [facility], [facility]/O 2022-07-30 00:00:00 Adum, Vivienne Johnson [facility] SPECIFIC GRAVITY [facility] CONSENT/REFUSAL FOR 2022-07-23 20:37:10 Doctor Unassigned, No [facility] [place] TREATMENT ASSIGNMENT OF BENEFITS 2022-07-23 20:36:42 Doctor Unassigned, No [facility] POCT URINALYSIS W/O 2022-07-23 00:00:00 Adum, Vivienne Johnson [facility] POCT URINALYSIS W/O 2022-07-17 00:00:00 Adum, Vivienne Johnson [facility] POCT URINALYSIS 2022-07-10 22:45:00 Adum, Vivienne Johnson [facility] DSU PRE-OP 2022-07-10 06:01:00 [facility] No [facility] POCT URINALYSIS W/O 2022-07-03 00:00:00 Adum, Vivienne Johnson [facility] POCT URINALYSIS W/O 2022-06-19 00:00:00 Adum, Vivienne Johnson [facility] POCT URINALYSIS W/O 2022-06-05 00:00:00 Adum, Vivienne Johnson [facility] TDAP VACCINE, >11 YRS, 2022-05-17 16:01:33 Adum, Vivienne Johnson [facility] POCT URINALYSIS W/O 2022-05-17 00:00:00 Adum, Vivienne Johnson [facility] POCT URINALYSIS W/O 2022-04-24 00:00:00 Adum, Vivienne Johnson [facility] POCT URINALYSIS W/O 2022-03-21 00:00:00 Yovani Velasquez [facility] Encounters Start End Encounter Admission Attending Care Care Encounter Source Date/Time Date/Time Type Type Clinicians Facility Department ID 2022-12-13 2022-12-13 [employer] T[facility] Main [facility] 1.2.8 40.114 [id number] [facility] [place] 13:15:00 13:30:00 Visit Adum, Vivienne SY 350.1.13.10 [facility] 4.2.7.2.686 Anna Marie goncalves PROFESSIO [id number] Ca dical [place] [address] Branch BUILDING 2022-12-13 2022-12-13 Outpatient R ADUM, [facility] [id number] Univers 11:00:00 13:23:14 VIVIENNE ity [facility] 2022-12-13 2022-12-13 [facility] 1.2.840.114 [id number] Univers 11:00:00 13:23:14 Vivienne Johnson KERRIE 350.1.13.10 ity of [place] [id number] Ca dical [address] 2022-09-10 2022-09-10 Outpatient R ADUM, [facility] [id number] Univers 11:15:00 11:41:36 VIVIENNE frye [facility] 2022-09-10 2022-09-10 [facility] [id number] Univers 11:15:00 11:41:36 Vivienne Johnson DEREK 350.1.13.10 ity of [place] [id number] [address] 2022-08-21 2022-08-21 Outpatient R ADUM, [facility] [id number] Univers 10:45:00 10:49:41 VIVIENNE frye [facility] 2022-08-21 2022-08-21 Routine Tritschler, Sarahyal [facility] 1.2. 840.114 [id number] Univers 10:45:00 10:49:41 Adum, Vivienne Johnson DEREK 350.1.13.10 ity of [place] [id number] [address] 2022-08-20 2022-08-20 Orders Doctor OREN 1.2.840.114 [id number] Univers 00:00:00 00:00:00 Only Unassigned, GARY 350.1.13.10 ity of [place] [facility] 4.2.7.2.686 [place] [id number] [place] [address] Branch 2022-08-06 2022-08-06 Nurse [facility] 1.2.840.114 [id number] Univers 10:00:00 10:15:00 Visit Vivienne Caballero 350.1.13.10 ity of WOMEN'S 4.2.7.2.686 [facility] [id number] [address] 2022-08-06 2022-08-06 Outpatient R [facility] [id number] Univers 10:00:00 10:00:00 VIVIENNE frye [facility] 2022-08-05 2022-08-05 Telephone [facility] 1.2.840.114 [id number] Univers 00:00:00 00:00:00 Vivienne REED 350.1.13.10 i ty of WOMEN'S 4.2.7.2.686 [facility] [id number] [address] 2022-07-31 2022-08-02 Inpatient P [facility] ASAF [id number] Univers 15:37:00 21:29:00 VIVIENNE laurapiper [facility] 2022-07-31 2022-08-02 [facility] 1.2.840.114 [id number] Univers 15:37:00 21:29:00 Encounter Viviennemarcellus SY 350.1.13.10 ity [facility] [place].2.[place] [id number] [facility] [address] [place] 2022-08-01 2022-08-01 Anesthesia [facility] 1.2.840.114 [id number] Univers 08:36:00 21:10:00 Event KERRIE coronel 350.1.13.10 i ty of [place]ian [place] 4.2.7.2.686 [place] CAMPUS [id number] [facility] [address] [place] 2022-07-31 2022-07-31 Orders Doctor OREN 1.2.840.114 [id number] Univers 00:00:00 00:00:00 Only Unassigned, GARY 350.1.13.10 ity of [place] [facility] 4.2.7.2.686 [place] [id number] [place] [address] Branch 2022-07-30 2022-07-30 Outpatient R [facility] [id number] Univers 09:00:00 09:13:15 VIVIENNE ity [facility] 2022-07-30 2022-07-30 Routine Adum, [facility] [id number] Univers 09:00:00 09:13:15 Vivienne REED 350.1.13.10 ity of [place] [id number] [address] 2022-07-23 2022-07-23 Outpatient R ADUM, [facility] [id number] Univers 08:00:00 08:42:03 VIVIENNE ity [facility] 2022-07-23 2022-07-23 Routine Adum, [facility] 1.2.072.659 [id number] Univers 08:00:00 08:42:03 Vivienne REED 350.1.13.10 ity of [place] [id number] [address] 2022-07-17 2022-07-17 Outpatient R ADUM, [facility] [id number] Univers 09:00:00 09:31:34 VIVIENNE sanchezy [facility] 2022-07-17 2022-07-17 Routine Adum, [facility] 1.2.928.757 [id number] Univers 09:00:00 09:31:34 Vivienne REED 350.1.13.10 ity [place] [id number] [address] 2022-07-15 2022-07-15 [employer] 2, Adc Lab [facility] 1.2.840.114 [id number] Univers 14:15:00 14:27:56 Visit Adum, Vivienne Johnson KERRIE 350.1.13.10 ity of [place] [id number] [address] 2022-07-15 2022-07-15 Outpatient R ADUM, [facility] [id number] Univers 14:15:00 14:15:00 VIVIENNE ity [facility] 2022-07-10 2022-07-10 Outpatient R ADUM, [facility] [id number] Univers 16:15:00 17:17:28 VIVIENNE frye [facility] 2022-07-10 2022-07-10 Routine Adum, [facility] 1.2.856.347 [id number] Univers 16:15:00 17:17:28 Vivienne L DEREK 350.1.13.10 ity of [place] [id number] [facility] [address] [place] 2022-07-10 2022-07-10 Orders Doctor OREN 1.2.840.114 [id number] Univers 00:00:00 00:00:00 Only Unassigned, GARY 350.1.13.10 ity of [facility] 4.2.7.2.686 [place] as [id number] [address] 2022-07-05 2022-07-05 Ore Miner Blasting 2, Adc Lab [facility] 1.2.840.114 [id number] Univers 13:30:00 13:45:00 Visit Adum, Vivienne SY 350.1.13.10 ity of [place] [id number] Ca dical NAL [address] [facility] 2022-07-05 2022-07-05 Ore Miner Blasting Ultrasound, [facility] 1.2 .840.114 [id number] Univers 13:00:00 13:30:00 Visit Jagjit Agrawal [employer] P[employer]ING HEADER 350.1. 13.10 ity of [facility] 4.2.7.2.686 [place] as MATERNAL [id number] Med ical & CHILD [address] [place] [address] 2022-07-05 2022-07-05 Outpatient P TANJA [facility] [id number] Univers 13:00:00 13:00:00 JAGJIT frye [facility] 2022-07-03 2022-07-03 Outpatient R ADUM, [facility] [id number] Univers 14:15:00 15:47:40 VIVIENNE frye [facility] 2022-07-03 2022-07-03 Routine Adum, [facility] 1.2.613.379 [id number] Univers 14:15:00 15:47:40 Vivienne REED 350.1.13.10 ity of [place] [id number] [address] 2022-06-25 2022-06-25 Telephone Adum, [facility] 1.2.333.719 [id number] Univers 00:00:00 00:00:00 Vivienne SY 350.1.13.10 ity of [facility] [place] [id number] Ca dical NAL [address] [place] [address] 2022-06-19 2022-06-19 Outpatient R ADUM, [facility] [id number] Univers 16:00:00 16:39:50 VIVIENNE ity of [facility] 2022-06-19 2022-06-19 [facility] 1.2.069.775 [id number] Univers 16:00:00 16:39:50 Vivienne REED 350.1.13.10 ity of [place] [id number] [address] 2022-06-05 2022-06-05 Outpatient R ADUM, [facility] [id number] Univers 16:15:00 17:08:06 VIVIENNE ity of [facility] 2022-06-05 2022-06-05 [facility] 1.2.232.538 [id number] Univers 16:15:00 17:08:06 Vivienne REED 350.1.13.10 ity of [place] [id number] [address] 2022-05-17 2022-05-17 Routine Adum, [facility] 1.2.840.114 [id number] Univers 09:45:00 10:31:35 Vivienne SY 350.1.13.10 ity of Visit [facility] [place] [id number] Ca dical NAL [address] [place] [address] 2022-05-17 2022-05-17 Outpatient R ADUM, [facility] [id number] Univers 08:30:00 09:20:31 VIVIENNE frye [facility] 2022-05-17 2022-05-17 Ore Miner Blasting 2, Adc Lab [facility] 1.2.840.114 [id number] Univers 08:30:00 09:20:31 Visit Vivienne Caballero 350.1.13.10 ity of [facility] [place] [id number] Ca dical NAL [address] [facility] 2022-05-07 2022-05-07 Ore Miner Blasting Ultrasound, Adc [facility] 1.2 .840.114 [id number] Univers 09:00:00 09:45:00 Visit EdwardearleneRenee 350.1.13.10 ity of [place] [id number] Ca dical [address] 2022-05-07 2022-05-07 [facility] [id number] Univers 09:00:00 09:00:00 BOOTHE ity [facility] 2022-05-02 2022-05-02 Telephone Ad, [facility] 1.2.840.114 [id number] Univers 00:00:00 00:00:00 Vivienne REED 350.1.13.10 i ty of [place] [id number] [address] 2022-04-24 2022-04-24 Outpatient R ADUM, [facility] [id number] Univers 15:30:00 16:36:47 VIVIENNE frye [facility] 2022-04-24 2022-04-24 Routine Adum, [facility] 1.2.573.958 [id number] Univers 15:30:00 16:36:47 Vivienne REED 350.1.13.10 ity of [place] [id number] [address] 2022-04-04 2022-04-04 Ore Miner Blasting Ultrasound, Ang-Mfm [facility] 1.2 .840.114 [id number] Univers 13:00:00 14:15:00 Visit Jagjit Agrawal Jerod [employer] P[employer]ING HEADER 350.1. 13.10 ity General acute hospital 4.2.7.2.686 [place] as MATERNAL [id number] [facility] ical & CHILD [address] [place] [address] 2022-04-04 2022-04-04 Outpatient P TANJA [facility] [id number] Univers 13:00:00 13:00:00 CHASEY ity [facility] 2022-03-28 2022-03-28 Outpatient P [facility] [id number] Univers 09:45:00 09:45:00 ity [facility] 2022-03-21 2022-03-21 Outpatient R FARHANA VELASQUEZN [facility] [id number] Univers 16:15:00 17:05:46 ity [facility] 2022-03-21 2022-03-21 Routine RonYovani [facility] 1.2.840.114 [id number] Univers 16:15:00 17:05:46 DEREK 350.1.13.10 i ty of [place] [id number] [address] 2022-03-08 2022-03-08 Ore Miner Blasting 2, Adc Lab [facility] 1.2.840.114 [id number] Univers 15:30:00 15:45:00 Visit Farhana Velasquezbrenda SY 350.1.13.10 ity [facility] 4[place]2.7.2.[place] [id number] Ca dical [address] 2022-03-08 2022-03-08 Outpatient R RON YOVANI [facility] [id number] Univers 15:30:00 15:30:00 ity [facility] 2022-03-06 2022-03-06 Telephone RonYovani NJNEDA [place] 1.2.840.11 4 [id number] Univers 00:00:00 00:00:00 DEREK 350.1.13.10 it y [place] [id number] [address] 2022-02-21 2022-02-21 Outpatient R YOVANI VELASQUEZ [facility] [id number] Univers 16:15:00 16:43:07 ity of [facility] 2022-02-21 2022-02-21 Routine Yovani Velasquez 1.2.840.114 [id number] Univers 16:15:00 16:43:07 DEREK 350.1.13.10 i ty of Visit [facility]S 4.2.7.2.686 [facility] [id number] [address] 2022-02-18 2022-02-18 Outpatient R YOVANI VELASQUEZ [facility] [id number] Univers 16:00:00 16:00:00 ity [facility] 2022-02-18 2022-02-18 Outpatient R YOVANI VELASQUEZ [facility] [id number] Univers 16:00:00 16:00:00 ity [facility] 2022-02-14 2022-02-14 Outpatient R YOVANI VELASQUEZ [facility] [id number] Univers 16:15:00 16:15:00 ity [facility] 2022-02-07 2022-02-07 Telephone Yovani Velasquez 1.2.840.11 [id number] Univers 00:00:00 00:00:00 DEREK 350.1.13.10 it y of [place] 4.2.7.2.686 [facility] [id number] [address] 2022-02-07 2022-02-07 Refill Yovani Velasquez 1.2.840.114 [id number] Univers 00:00:00 00:00:00 DEREK 350.1.13.10 it y of [place] 4.2.7.2.686 [facility] [id number] [address] 2022-02-01 2022-02-01 Nurse OREN Grady 1.2.840.114 [id number] Univers 00:00:00 00:00:00 Triage Jo-Ann VEGA 350.1.13.10 ity of [facility] 4.2.7.2.686 [place] [id number] [address] 2022-01-26 2022-01-26 Refill Yovani Velasquez 1.2.840.114 [id number] Univers 00:00:00 00:00:00 DEREK 350.1.13.10 it y of [place] [id number] [address] 2022-01-25 2022-01-25 Refill Yovani Velasquez [place] 1.2.840.114 [id number] Univers 00:00:00 00:00:00 DEREK 350.1.13.10 it y [place] [id number] [address] 2022-01-23 2022-01-23 Ore Miner Blasting 2, Adc Lab [facility] 1.2.840.114 [id number] Univers 11:15:00 11:30:00 Visit Yovani Velasquez 350.1.13.10 ity [facility] 4[place]2.7.2.[place] [id number] Ca dical [address] 2022-01-23 2022-01-23 Outpatient R YOVANI VELASQUEZ [facility] [id number] Univers 11:15:00 11:15:00 ity of [facility] 2022-01-22 2022-01-22 Refill Yovani Velasquez [facility] 1.2.840.114 [id number] Univers 00:00:00 00:00:00 DEREK 350.1.13.10 it y of [place] [id number] [address] 2022-01-21 2022-01-21 Outpatient R YOVANI VELASQUEZ [facility] [id number] Univers 08:00:00 08:54:31 ity of [facility] 2022-01-21 2022-01-21 [facility]ine [facility] 1.2.840.114 [id number] Univers 08:00:00 08:54:31 DEREK 350.1.13.10 i ty of [place] [id number] [address] 2022-01-04 2022-01-04 Refill Yovani Velasquez [facility] 1.2.840.114 [id number] Univers 00:00:00 00:00:00 DEREK 350.1.13.10 it y of [place] [id number] [address] 2021-12-25 2021-12-25 Ore Miner Blasting 2, Adc Lab [facility] 1.2.840.114 [id number] Univers 08:15:00 08:30:00 Visit Yovani Velasquez 350.1.13.10 ity of [place] [id number] [address] 2021-12-25 2021-12-25 Outpatient R YOVANI VELASQUEZ [facility] [id number] Univers 08:15:00 08:15:00 ity of [facility] 2021-12-23 2021-12-23 Telephone Yovani Velasquez [facility] 1.2.840.11 [id number] Univers 00:00:00 00:00:00 DEREK 350.1.13.10 it y of PEDIATRIC 4.2.7.2.686 [facility] CLINIC [id number] [address] 2021-12-21 2021-12-21 Outpatient R YOVANI VELASQUEZ [facility] [id number] Univers 15:00:00 15:51:17 ity [facility] 2021-12-21 2021-12-21 Routine Yovani Velasquez [facility] 1.2.840.114 [id number] Univers 15:00:00 15:51:17 [place] 350.1.13.10 ity of Visit [place].2.[place] [id number] [address] 2021-12-21 2021-12-21 Outpatient R YOVANI VELASQUEZ [facility] [id number] Univers 15:00:00 15:51:17 ity [facility] 2021-12-21 2021-12-21 Routine TriRAVI lindsay 1.2.840.114 [id number] Univers 09:30:00 10:00:00 Jaclyn REED 350.1.13.10 i ty of [place] [id number] [address] 2021-12-21 2021-12-21 Outpatient R JACLYN [facility] B [id number] Univers 09:30:00 09:30:00 TRIEMILEEJACLYN BOLANOS ity [facility] 2021-12-21 2021-12-21 Telephone Yovani Velasquez [facility] 1.2.840.11 [id number] Univers 00:00:00 00:00:00 DEREK 350.1.13.10 it y of [place] [id number] [address] 2021-12-21 2021-12-21 Orders Doctor OREN 1.2.840.114 [id number] Univers 00:00:00 00:00:00 Only Unassigned, GARY 350.1.13.10 ity of [place] [facility] 4.2.7.2.686 [place] as [id number] [address] 2021-12-17 2021-12-17 Telephone Yovani Velasquez [facility] 1.2.840.11 4 [id number] Univers 00:00:00 00:00:00 DEREK 350.1.13.10 it y of [place] [id number] [address] 2021-12-17 2021-12-17 Telephone Yovani Velasquez [facility] 1.2.840.11 [id number] Univers 00:00:00 00:00:00 DEREK 350.1.13.10 it y [place] [facility] [id number] [address] 2021-12-13 2021-12-13 Outpatient R YOVANI VELASQUEZ [facility] [id number] Univers 08:00:00 08:36:35 ity [facility] 2021-12-13 2021-12-13 Routine Yovani Velasquez 1.2.840.114 [id number] Univers 08:00:00 08:36:35 DEREK 350.1.13.10 i ty of [place] [id number] [address] 2021-12-13 2021-12-13 Outpatient R YOVANI VELASQUEZ [facility] [id number] Univers 08:00:00 08:00:00 ity of [facility] 2021-12-10 2021-12-10 Telephone Yovani Velasquez [place] 1.2.840.11 [id number] Univers 00:00:00 00:00:00 DEREK 350.1.13.10 it [place] [id number] [address] 2021-12-04 2021-12-04 Patient Gerson [facility] 1.2.840.114 [id number] Univers 00:00:00 00:00:00 Secure Msg Mariah SY 350.1.13.10 ity of [place] [id number] Ca dical [address] 2021-11-30 2021-11-30 Case Yovani Velasquez 1.2.840.114 [id number] Univers 00:00:00 00:00:00 Management DEREK 350.1.13.10 it[place] [id number] [address] 2021-11-30 2021-11-30 Telephone Yovani Velasquez [facility] 1.2.840.11 4 [id number] Univers 00:00:00 00:00:00 DEREK 350.1.13.10 it y [place] [id number] [address] 2021-11-29 2021-11-29 Outpatient R YOVANI VELASQUEZ [facility] [id number] Univers 08:30:00 09:22:25 ity of [facility] 2021-11-29 2021-11-29 Outpatient R YOVANI VELASQUEZ [facility] [id number] Univers 08:30:00 09:22:25 ity of [facility] 2021-11-29 2021-11-29 Initial Yovani Velasquez [facility] 1.2.840.114 [id number] Univers 08:30:00 09:22:25 DEREK 350.1.13.10 i ty of Visit [facility] 4.2.7.2.686 [facility] [id number] [facility] [address] 2021-11-29 2021-11-29 Orders Doctor OREN 1.2.840.114 [id number] Univers 00:00:00 00:00:00 Only Unassigned, GARY 350.1.13.10 ity of [place] [facility] 4.2.7.2.686 [place] as [id number] [facility] [address] 2021-01-18 2021-01-18 Outpatient CARLOS LozanoU [facility] [id number] [facility] 12:48:00 12:48:[address] [place] [address] 2020-03-28 2020-03-28 Laboratory Lab, [facility] Fam Pob I [facility] 1.2. 840.114 [id number] Univers 13:39:47 13:59:47 Only Oz[facility] 350.1.13.10 ity of [place] 4.2.7.2.686 [place] as Professio [id number] Ca dical [address] Office [address] 2020-03-28 2020-03-28 Laboratory Lab, [facility] 1.2.840.114 [id number] 13:39:47 13:59:47 Only Fam Pob I Health 350.1.13.10 [place] 4.2.7.2.686 Professio [id number] nal [facility] [address] 2020-03-28 2020-03-28 Outpatient R KYLEE [facility] [id number] Univers 13:40:00 13:40:00 OZIEL ity of [facility] 2020-03-28 2020-03-28 Letter Doctor OREN 1.2.840.114 [id number] Univers 00:00:00 00:00:00 (Out) Unassigned, GARY 350.1.13.10 ity of [place] [facility] 4.2.7.2.686 [place] as [id number] [facility] [place] [address] 2020-03-28 2020-03-28 Letter Doctor OREN 1.2.840.114 [id number] 00:00:00 00:00:00 (Out) Unassigned, GARY 350.1.13.10 [place] [facility] 4.2.7.2.686 [id number] 044 Results Test Description Test Time Test Comments Results Result Comments Source POCT TEST 2022-12-13 16:52:00 Test Item Value Reference Range Interpretation Comme nts POCT PREG (test code = 1605) Negative On board controls acceptable with C Line (test code = 3574) Yes POCT PREG LOT # (test code = 3575) POCT PREG TEST DATE (test code = 3576) [facility] with [id number] 11:18:05 Test Item Value Reference Range Interpretation Comments WBC (test code = See_Comment H [Automated 0554-2) message] The system which generated this result transmit dominick reference range : 4.30 - 11.10 10*3/?L. The reference range was not used to interpret this result as normal/abnormal . RBC (test code = See_Comment [Automated 083-8) message] The system which generated this result transmit dominick reference range : 3.93 - 5.25 10*6/?L. The reference range was not used to interpret this result as normal/abnormal . HGB (test code = 12.7 g/dL 11.6-15.0 718-7) HCT (test code = 37.2 % 35.7-45.2 4544-3) MCV (test code = 93.5 fL 80.6-95.5 787-2) MCH (test code = 31.9 pg 25.9-32.8 785-6) MCHC (test code = 34.1 g/dL 31.6-35.1 786-4) RDW-SD (test code = 42.6 fL 39.0-49.9 44050-6) RDW-CV (test code = 12.3 % 12.0-15.5 788-0) PLT (test code = See_Comment [Automated 547-3) message] The system which generated this result transmit dominick reference range : 166 - 358 10*3/ ?L. The reference range was not u sed to interpret th is result as normal/abnormal . MPV (test code = 9.7 fL 9.5-12.9 57779-2) NRBC/100 WBC (test See_Comment [Automat ed code = 0432489735) message] The system which generated this result transmit dominick reference range : 0.0 - 10.0 /100 WBCs. The reference range was not used to interpret this result as normal/abnormal . NRBC x10^3 (test code See_Comment [Auto mated = 5650633676) message] The system which generated this result transmit dominick reference range : 10*3/?L. The reference range was not used to interpret this result as normal/abnormal . GRAN MAT (NEUT) % 79.9 % (test code = 770-8) IMM GRAN % (test code 0.60 % = 9837254596) LYMPH % (test code = 10.2 % 736-9) MONO % (test code = 8.9 % 5905-5) EOS % (test code = 0.1 % 713-8) BASO % (test code = 0.3 % 706-2) GRAN MAT x10^3(ANC) 12.60 10*3/uL 1.88-7.09 H (test code = 6856341682) IMM GRAN x10^3 (test 0.09 10*3/uL 0.00-0.06 H code = 5211408588) LYMPH x10^3 (test code 1.61 10*3/uL 1.32-3.29 = 731-0) MONO x10^3 (test code 1.41 10*3/uL 0.33-0.92 H = 742-7) EOS x10^3 (test code = 0.03-0.39 L 711-2) BASO x10^3 (test code 0.04 10*3/uL 0.01-0.07 = 704-7) Lab Interpretation Abnormal (test code = 50068-6) [facility] - [facility] [id number] 00:12:19 Test Item Value Reference Range Interpretation Comments ABO & RH (test code A Positive Performe d at [facility] = 20) Laboratory Serv [facility] [address] [place] [phone] Free: [phone] A No. [id number] IAT (test code = Negative Performed a t [facility] 1185) Laboratory [facility] [address] [place] [address]Mmyg Free: [phone] A No. [id number] [facility] [id number] 14:49:00 Test Item Value Reference Range Interpretation [...] code = 3257) n/a Negative - Negative [facility] [id number] 14:22:00 Test Item Value Reference Range Interpretation [...] code = 3257) n/a Negative - Negative [facility] W/O SPECIFIC [id number] 15:08:00 Test Item Value Reference Range Interpretation [...] code = 3257) N/A Negative - Negative [facility] URINALYSIS W SPECIFIC [id number] 22:45:00 Test Item Value Reference Range Interpretation Comments POCT U SP GRAV (test code = N/A 1.005-1.025 3255) POCT PH U (test code = 3254) [...] U APPEAR (test code = 3267) clear [facility] URINALYSIS W/O SPECIFIC [id number] 21:32:00 Test Item Value Reference Range Interpretation [...] code = 3257) n/a Negative - Negative [facility] URINALYSIS W/O SPECIFIC [id number] 22:16:00 Test Item Value Reference Range Interpretation [...] code = 3257) n/a Negative - Negative [facility] URINALYSIS W/O SPECIFIC [id number] 22:55:00 Test Item Value Reference Range Interpretation [...] code = 3257) N/A Negative - Negative [facility] URINALYSIS W/O SPECIFIC [id number] 15:58:00 Test Item Value Reference Range Interpretation [...] code = 3257) n/a Negative - Negative [facility] [id number] 21:06:00 Test Item Value Reference Range Interpretation [...] code = 3257) n/a Negative - Negative [facility] W/O SPECIFIC [id number] 21:51:00 Test Item Value Reference Range Interpretation [...] code = 3257) n/a Negative - Negative [facility] Notes Date/Time Note Provider Source 2021-01-19 11:16:00-00:00 [id number] [place] [address] PATIENT NAME: MELANY CORRIGAN ADMIT DATE: ACCOUNT NO: [id number] ROOM NO: AGE: 20 REPORT TYPE: ECHOCARDIOGRAM SEX: F ADMITTING PHYSICIAN: ATTENDING PHYSICIAN:Moshe Trinh MD *[facility]* [address] [place] [address] Transthoracic Echocardiogram Patient: Melany Corrigan Study Date: 01/18/2021 BP: Location: [facility] URN: [id number] 3637 : 2000 Age: 20 Height: 64 in / 162.6 cm Gender: F Weight: 224 .5 lb / 102.1 kg BMI/BSA: 38.6 kg/m 2 / 2.2 m 2 *Ordering Physician: * Moshe Trinh MD *Interpreting Physician: * Moshe Trinh MD *[place] [employer]: * Yelitza Palmer RDCS, RVT Indications: Palpitations. Study data: Transthoracic echocardiogram. Proced ure: Transthoracic echocardiography was performed. Images were obta ined using a [employer] cardiac ultrasound machine. Image quality was adequate. [...] normal. Syst olic function is PATIENT NAME: MELANY CORRIGAN 3637 normal. Ventricular septum: The ventricular [...] ESD major ax, A2C 6.5 cm ------- ALXEIA/bsa major ax, 3.7 cm/m 2 ------- A2C [...] 7 <=14 LVOT Value Ref PATIENT NAME: MELANY CORRIGAN 3637 Diam, S 2.06 cm ------- [...] cm 2 ------- Pulmonic valve Value Ref CT v, ED 0.83 m/sec ------- PATIENT NAME: MELANY CORRIGAN 3637 Aortic root Value Ref Root [...] MD 01/19/2021 11:15 at 1116 PATIENT NAME: MELANY CORRIGAN 3637
--- NOTE | 2023-01-15 22:27 | RAD REPORT ---
EXAM DESCRIPTION: US - Transvaginal Study Probe - 01/15/2023 10:21 pm CLINICAL HISTORY: pelvic pain, vaginal bleeding COMPARISON: No comparisons FINDINGS: The uterus is normal in size, shape and echotexture. The uterus measures 6.9 x 3.6 x 5 cm with volume of 65.3 cc The endometrial stripe measures 6 mm, within normal limits . Both ovaries are normal in size, shape and echotexture. The right ovary measures 2.1 x 3 x 2.7 cm wi th volume of 8.6 cc. The left ovary measures 2 x 2.8 x 1.9 cm with volume of 5.6 cc. No ovarian or p arovarian lesions. No adnexal masses. Normal Doppler blood flow was demonstrated to both ovaries. Small volume of pelvic free fluid. IMPRESSION: Bilateral ovarian blood flow. Small volume of nonspecific pelvic free fluid which may be physiologic.
[2023-01-16 00:16] LABS: Absolute Lymphocytes (CBC) 2.3 K/uL (0.7-4.9); Hematocrit 43.7 % (36.0-45.0); Lymphocytes % 33.6 % (15.3-44.8); MCV 89.2 fL (80-100); MPV 7.1 fL (7.6-11.3); RBC Red Blood Cell Count 4.91 M/uL (3.86-4.86)
[2023-01-16 00:25] LABS: Potassium 3.8 mEq/L (3.5-5.1)
--- NOTE | 2023-01-16 00:35 | ER ---
Nurse's Notes [facility] Name: Melany Corrigan Age: 22 yrs Sex: Female : 2000 Arrival Date: 01/15/2023 Time: 21:21 Bed 20 Private MD: Diagnosis: Abnormal uterine and vaginal bleeding, unspecified Presentation: 01/15 21:37 Chief complaint: Patient states: heavy period x 2 days reports changing pads every 1.5 kl hours seen by PCP negative test. Coronavirus screen: Vaccine status: Patient reports being unvaccinated. Ebola Screen: Patient negative for fever greater than or equal to 101.5 degrees Fahrenheit, and additional compatible Ebola Virus Disease symptoms. Initial Sepsis Screen: Does the patient meet any 2 criteria? No. Patient's initial sepsis screen is negative. Does the patient have a suspected source of infection?. Risk Assessment: Do you want to hurt yourself or someone else? Patient reports no desire to harm self or others. Onset of symptoms was January 14, 2023 at 08:00. 21:37 Method Of Arrival: Ambulatory 21:37 Acuity: JAVIER 3 Triage Assessment: 21:41 General: Appears in no apparent distress. Behavior is calm, cooperative. Pain: Complains of pain in suprapubic area Pain currently is 3 out of 10 on a pain scale. Quality of pain is described as crampy. : Reports vaginal bleeding that is with clots, heavy flow. 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 - Social history:: Smoking status: Patient denies any tobacco usage or history of. Screenin:59 [facility] ED Fall Risk Assessment (Adult) History of falling in the last 3 months, lg3 including since admission No falls in past 3 months (0 pts). Abuse screen: Denies threats or abuse. Denies injuries from another. Nutritional screening: No deficits noted. Tuberculosis screening: No symptoms or risk factors identified. Assessment: 23:59 General: Appears in no apparent distress. comfortable, Behavior is calm, cooperative. lg3 Pain: Denies pain. Neuro: No deficits noted. Perla Agitation-Sedation Scale (RASS): 0 - Alert and Calm Level of Consciousness is awake, alert, obeys commands, Oriented to person, place, time, situation. Cardiovascular: No deficits noted. Denies chest pain, shortness of breath, Capillary refill < 3 seconds Clubbing of nail beds is absent JVD is absent Patient's skin is warm and dry. Respiratory: No deficits noted. Airway is patent Respiratory effort is even, unlabored, Respiratory pattern is regular, symmetrical. GI: No deficits noted. No signs and/or symptoms were reported involving the gastrointestinal system. Abdomen is round non-distended, Bowel sounds present X 4 quads. Abd is soft and non tender X 4 quads. : Urine is blood tinged, Reports vaginal bleeding that is bright red, heavy flow. EENT: No deficits noted. No signs and/or symptoms were reported regarding the EENT system. Derm: No deficits noted. No signs and/or symptoms reported regarding the dermatologic system. Skin is intact, is healthy with good turgor, Skin is dry, Skin is normal, Skin temperature is warm. Musculoskeletal: No deficits noted. No signs and/or symptoms reported regarding the musculoskeletal system. Circulation, motion, and sensation intact. Range of motion: intact in all extremities. 01/16 00:35 Reassessment: Patient appears in no apparent distress at this time. No changes from lg3 previously documented assessment. Patient and/or family updated on plan of care and expected duration. Pain level reassessed. Patient is alert, oriented x 3, equal unlabored respirations, skin warm/dry/pink. Patient denies pain at this time. Vital Signs: 01/15 21:37 BP 119 / 65; Pulse 79; Resp 18; Temp 97.9; Pulse Ox 99% on R/A; Weight 104.33 kg (M); Height 5 ft. 4 in. ; Pain 09/13; 01/16 00:35 BP 123 / 72; Pulse 77; Resp 17 S; Pulse Ox 100% on R/A; lg3 01/15 21:37 Body Mass Index 39.48 (104.33 kg, 162.56 cm) 01/15 21:37 Pain Scale: Adult ED Course: 01/15 21:24 Patient arrived in ED. ja2 21:25 Hermes Chavez PA is PHCP. justin 21:25 Reynold Andrade MD is Attending Physician. arnold 21:40 Triage completed. 22:22 Transvaginal Study (Probe) In Process Unspecified. EDMS 23:41 Iona Zamudio, RN is Primary Nurse. lg3 23:59 Patient has correct armband on for positive identification. Placed in gown. Bed in low lg3 position. Call light in reach. Side rails up X 1. Client placed on continuous cardiac and pulse oximetry monitoring. NIBP monitoring applied. Door closed. Noise minimized. Warm blanket given. Family accompanied patient. 23:59 Arm band placed on right wrist. lg3 23:59 Inserted saline lock: 22 gauge in right hand, using aseptic technique. Blood collected. lg3 01/16 00:03 BMP Sent. lg3 00:03 CBC with Diff Sent. lg3 00:35 Assist provider with pelvic exam: Set up pelvic tray. Performed by Hermes GU lg3 Patient tolerated well. 00:54 IV discontinued, intact, bleeding controlled, No redness/swelling at site. Pressure lg3 dressing applied. Administered Medications: No medications were administered Medication: 00:35 VIS not applicable for this client. lg3 Outcome: 00:34 Discharge ordered by . [facility] 00:53 Discharged to home ambulatory, with family. lg3 00:53 Condition: stable 00:53 Discharge instructions given to patient, Instructed on discharge instructions, follow up and referral plans. Demonstrated understanding of instructions, follow-up care. 00:55 Patient left the ED. lg3 Signatures: Dispatcher [employer] EDMS Patience Monique, RN RN Hermes Aguilar PA PA jmm Gibson, Lacie, CHERIE RN Disha Nagel
--- NOTE | 2023-01-16 00:35 | EDPHYS ---
Physician Documentation [facility] Name: Melany Corrigan Age: 22 yrs Sex: Female : 2000 Arrival Date: 01/15/2023 Time: 21:21 Bed 20 Private MD: ED Physician Reynold Andrade HPI: 01/15 21:55 This 22 yrs old Female presents to ER via Ambulatory with complaints of Vaginal jmm Bleeding. 21:55 The patient presents with vaginal bleeding that is. Onset: The symptoms/episode jmm began/occurred gradually. Modifying factors: The symptoms are alleviated by nothing, the symptoms are aggravated by nothing. This is a 22-year-old female that presents emerged part with complaints of heavy vaginal bleeding. Patient states being currently on her cycle but it does not normally get this heavy. Patient goes through a pad every hour and a half. Denies weakness or dizziness.. VOICE NETWORK ADMINISTRATOR: 01/16 00:54 LMP N/A - Recent lg3 Historical: - Allergies: 01/15 21:40 Codeine; kl - Home Meds: 21:40 labetalol 100 mg Oral tab 1 tab 2 times per day [Active]; kl - PMHx: 21:40 atrial tachycardia; kl - PSHx: 21:40 None; kl - Immunization history:: Adult Immunizations not immunized. - Social history:: Smoking status: Patient denies any tobacco usage or history of. ROS: 21:55 Constitutional: Negative for fever, chills, and weight loss, Cardiovascular: Negative jmm for chest pain, palpitations, and edema, Respiratory: Negative for shortness of breath, cough, wheezing, and pleuritic chest pain. 21:55 : Positive for vaginal bleeding. 21:55 All other systems are negative. Exam: 21:55 Constitutional: This is a well developed, well nourished patient who is awake, alert, jmm and in no acute distress. Head/Face: atraumatic. Eyes: EOMI, no conjunctival erythema appreciated ENT: Moist Mucus Membranes Neck: Trachea midline, Supple Chest/axilla: Normal chest wall appearance and motion. Cardiovascular: Regular rate and rhythm. No edema appreciated Respiratory: Normal respirations, no respiratory distress appreciated 21:55 Skin: General appearance color normal MS/ Extremity: Moves all extremities, no obvious deformities appreciated, no edema noted to the lower extremities Neuro: Awake and alert Psych: Behavior is normal, Mood is normal, Patient is cooperative and pleasant 21:55 Abdomen/GI: Inspection: abdomen appears normal, Bowel sounds: normal, Palpation: abdomen is soft and non-tender, soft, in all quadrants. 21:55 : Pelvic Exam: Speculum exam: scant bleeding. Vital Signs: 21:37 BP 119 / 65; Pulse 79; Resp 18; Temp 97.9; Pulse Ox 99% on R/A; Weight 104.33 kg (M); Height 5 ft. 4 in. ; Pain 09/13; 01/16 00:35 BP 123 / 72; Pulse 77; Resp 17 S; Pulse Ox 100% on R/A; lg3 01/15 21:37 Body Mass Index 39.48 (104.33 kg, 162.56 cm) 01/15 21:37 Pain Scale: Adult MDM: 01/15 21:55 Differential diagnosis: Ovarian cyst, anemia, ruptured ovarian cyst. Data reviewed: [facility] vital signs, nurses notes. Counseling: I had a detailed discussion with the patient and/or guardian regarding: the historical points, exam findings, and any diagnostic results supporting the discharge/admit diagnosis, lab results, radiology results, the need for outpatient follow up, to return to the emergency department if symptoms worsen or persist or if there are any questions or concerns that arise at home. ED course: Patient is alert nontoxic in appearance in the ED. Normal hemoglobin level. Patient is normotensive. Patient advised to follow-up with VOICE NETWORK ADMINISTRATOR for further evaluation. Patient otherwise given strict return precautions. Patient understood and agrees plan of care. 21:57 Patient medically screened. [facility] 01/15 21:55 Order name: CBC with Diff; Complete Time: 00:18 [facility] 01/15 21:55 Order name: BMP; Complete Time: 00:38 [facility] 01/15 21:55 Order name: US Transvaginal Study (Probe); Complete Time: 22:28 [facility] 01/15 21:55 Order name: Saline Lock; Complete Time: 00:03 [facility] 01/15 23:59 Order name: Pelvic Exam Setup; Complete Time: 00:12 [facility] 01/15 23:59 Order name: Gown patient; Complete Time: 00:12 [facility] Administered Medications: No medications were administered Disposition: 01/16 07:07 Co-signature as Attending Physician, Reynold Andrade MD I agree with the assessment sp4 and plan of care. I reviewed the patient's care provided by the Advanced Practice Provider and agree with the diagnosis and treatment plan. Disposition Summary: 01/16/23 00:34 Discharge Ordered Location: Home [facility] Condition: Stable jm Diagnosis - Abnormal uterine and vaginal bleeding, unspecified jm Followup: [facility] - With: Private Physician - When: 2 - 3 days - Reason: Recheck today's complaints, Continuance of care, Re-evaluation by your physician Discharge Instructions: - Discharge Summary Sheet [facility] - Abnormal Uterine Bleeding [facility] Forms: - Medication Reconciliation Form [facility] - Thank You Letter [facility] - Antibiotic Education [facility] - Prescription Opioid Use [facility] - Patient Portal Instructions.htm [facility] Signatures: Dispatcher [employer] Patience Renteria, CHERIE RN Hermes Aguilar PA PA jmm Potepalov, Sergey, MD MD sp4
[2023-01-16 02:57] VITALS: TEMP 97.9
[2023-01-16 02:58] VITALS: BP 123/72; O2SAT 100
== END 2023-01-16 00:55 | disposition home or self-care (01) ==
LOC: ER 21:21
DX: N93.9 Abnormal uterine and vaginal bleeding, unspecified (principal); Z88.5 Allergy status to narcotic agent
CPT/HCPCS: 36415; 76830; 80048; 85025; 99284

== ENCOUNTER 2024-07-17 12:51 | Emergency (ER) | payer BC, OTHER ==
--- OUTSIDE RECORDS SUMMARY | 2024-07-17 12:55 | XMS REPORT | Continuity of Care Document ---
Author Name Unknown Address [address] [facility] [address] [place] [address] [facility] thconnect Address [address] [facility] [place] [address] Care Team Providers Care Sales Manager Name Role Phone CHASTITY LONGORIA Primary Care Physician Unavailab Chastity Bullock Attending Clinician Unavailable Pepper Roach Attending Clinician Unavailable LIN POE Attending Clinician LIN Means Attending Clinician Lin Means MD Attending Clinician [phone]- [phone] VIVIENNE CABALLERO Attending Clinician Unavailable VIVIENNE CABALLERO Attending Clinician Unavailable Vivienne Caballero MD Attending Clinician [phone] [email or web address] Attending Clinician Unavaila ble Doctor Unassigned, [place] Attending Clinician U navailable Pob, [facility] Attending Clinician Unavailtony Rosas NP, [place] Attending Clinician [phone] Nurse, [facility] Attending Clinician Unavailable Wilian Beverly MD Attending Clinicia n 2, [facility] Attending Clinician Unavailable Ultrasound, [facility] Attending Clinician Unavailmatias Agrawal MD, Luther Newsome Attending Clinician + LUTHER AGRAWAL Attending Clinician Unav ailable Ultrasound, [facility] Attending Clinician Unavaila chas Good MD, Shyann Nathan Attending Clinician [phone] SHYANN GOOD Attending Clinician UnavailYOVANI Smith Attending Clinician Unavailable Ron PADRON, Yovani Attending Clinician [phone] Miguel A CRESPO, Jo-Ann Johnson Attending Clinician CAMERON Ramírez Attending Clinician Unavaila Mariah Pina MA Attending Clinician Unavail able Moshe Trinh Attending Clinician Unavailabl e Lab, [facility] Attending Clinician Unavailab Becca Jackman Attending Clinician [phone] BECCA PICHARDO Attending Clinician Unavailable CHASTITY LONGORIA Admitting Clinician Unavailable [email or web address] Admitting Clinician Unavaila VIVIENNE Walters Admitting Clinician Unavailable Vivienne Caballero MD Admitting Clinician [phone] Physician, No Primary or Family Admitting Clinic marcellus Unavailable Payers Payer Name Policy Type Policy Number Effective Date Expirati on Date Source [place] [employer] [id number] 2024 00:00:00 HIM [employer]BS BLUE ADVANTAGE O [id number] 2022 00:00:00 2024 00:00:00 Blue Cross Blue Shield O 6 [id number] [id number] 2021 00:00:00 Problems Condition Name Condition Details Condition Category Status Onset Date Resolution Date Last Treatment Date Treating Clinician Comments Source Obesity (BMI 30-39.9) Obesity (BMI 30-39.9) Disease Active 6-09 00:00: 00 [facility] Essential hypertensi on, benign Essential hypertensi on, benign Disease Active 2-19 00:00: 00 [facility] BMI 35.0-35.9, adult BMI 35.0-35.9, adult Disease Active 2021-07 1-11 00:00: 00 [facility] 25 weeks gestation of 25 weeks gestation of Disease Active 2021-07 0- 00:00: 00 [facility] Nausea and vomiting in Nausea and vomiting in Disease Active 11-29 00:00: 00 [facility] Atrial tachycardi a Atrial tachycardi a Disease Active 11-29 00:00: 00 [facility] [id number] Body mass index [BMI] 45.0-49.9, adult Problem [facility] [id number] Essential hypertensi on Problem Common [facility] Paroxysmal atrial fibrillati on Paroxysmal atrial fibrillati on Disease Active [facility] Encounter for routine follow-up Encounter for routine follow-up Disease Resolve d 1- 00:00: 00 2022-09-10 00:00:00 2022-09-10 12:05:29 [facility] Liveborn , of [place] , born in hospital by vaginal delivery Liveborn , of [place] , born in hospital by vaginal delivery Disease Resolve d 1- 00:00: 00 2022-08-21 00:00:00 2022-08-21 10:42:03 [facility] Supervisio n of high risk in second trimester Supervisio n of high risk in second trimester Disease Resolve d 2021-07 0- 00:00: 00 2022-08-21 00:00:00 2022-08-21 10:42:03 [facility] 39 weeks gestation of 39 weeks gestation of Disease Resolve d 2021-07 0-19 00:00: 00 2022-08-21 00:00:00 2022-08-21 10:42:03 [facility] Obesity in Obesity in Disease Resolve d 2021-0 6-17 00:00: 00 2022-08-21 00:00:00 2022-08-21 10:42:03 [facility] Nausea and vomiting in Nausea and vomiting in Disease Resolve d 2021--26 00:00: 00 2022-04-24 00:00:00 2022-04-24 18:11:37 [facility] Allergies, Adverse Reactions, Alerts Allergy Name Allergy Type Status Severity Reaction(s) Onset Date Inactive Date Treating Clinician Comments Source codeine DA Active MO N/V/ITCHING 2023-07 00:00: 00 [facility] Codeine Propensi ty to adverse reaction s Active Shortness of Breath 11-29 00:00: 00 [facility] CODEINE DRUG INGREDI Active SOB 11-29 00:00: 00 [facility] codeine codeine Active Unknown [facility] Social History Social Habit Start Date Stop Date Quantity Comments Source ASSERTION 2021-11-13 00:00:00 [facility] History of Tobacco Use [facility] Sex Assigned At [facility] Gender identity [facility] Sexual orientation U [facility] Exposure to SARS-CoV-2 (event) 2022-12-03 00:00:00 2022-12-13 10:54:00 Not sure [facility] Alcoholic beverage intake 2022-09-10 00:00:00 2022-09-10 00:00:00 Ex-drinker (finding) [facility] Alcohol intake 2022-09-10 00:00:00 2022-09-10 00:00:00 Ex-drinker (finding) [facility] Tobacco use and exposure 2022-01-21 00:00:00 2022-01-21 00:00:00 Smokeless tobacco non-user [facility] History of Social function 2021-11-29 00:00:00 2021-11-29 00:00:00 [facility] Smoking Status Start Date Stop Date Source Never Smoker Common [facility] Medications Ordered Medication Name Filled Medication Name Start Date Stop Date Current Medication? Ordering Clinician Indication Dosage Frequency Signature (SIG) Comments Components Source Labetalol HCl 100 MG Labetalol HCl 100 MG 03-01 00:00: 00 No 1{table t} BID Labetalol HCl 100 MG norethindro ne 0.35 mg tablet 02-27 00:00: 00 Yes [id number] .35mg Take 1 tablet by mouth in the morning. [facility] methylergon ovine (METHERGINE ) injection 0.2 mg 08-02 02:45: 00 08-02 01:35 :00 No .2mg 0.2 mg, Intramuscu lar, ONCE, 1 dose, On Fri08/01/22 at 2045, Routine [facility] ibuprofen (IBU) tablet 600 mg 08-02 01:39: 12 Yes 600mg 600 mg, Oral, Q6HPRN, Starting on Fri08/01/22 at 1939, Until Discontinu ed, Routine, Pain (scale 4-6) [facility] acetaminoph en (TYLENOL) tablet 650 mg 08-02 01:39: 12 Yes 650mg 650 mg, Oral, Q6HPRN, Starting on Fri08/01/22 at 1939, Until Discontinu ed, Routine, Pain (scale 1-3) [facility] diphenhydrA MINE (BENADRYL) tablet 25 mg 08-02 01:39: 12 Yes 25mg 25 mg, Oral, Q6HPRN, Starting on Fri08/01/22 at 1939, Until Discontinu ed, Routine, Sleep, Itching [facility] ondansetron (ZOFRAN (PF)) injection 4 mg 08-02 01:39: 12 Yes 4mg 4 mg, Slow IV Push, Q8HPRN, Starting on Fri08/01/22 at 1939, Until Discontinu ed, Routine, Nausea and Vomiting (N/V) [facility] simethicone (GAS RELIEF (SIMETHICON E)) chewable tablet 160 mg 08-02 01:39: 12 Yes 160mg 160 mg, Oral, PC+HSPRN, Starting on Fri08/01/22 at 193, Until Discontinu ed, Routine, Gas [facility] docusate (COLACE) capsule 200 mg 08-02 01:39: 12 Yes 200mg 200 mg, Oral, QDAILYPRN, Starting on Fri08/01/22 at 193, Until Discontinu ed, Routine, Constipati on [facility] magnesium hydroxide (MILK OF MAGNESIA) 400 mg/5 mL suspension 30 mL 08-02 01:39: 12 Yes 30mL 30 mL, Oral, QDAILYPRN, Starting on Fri08/01/22 at 193, Until Discontinu ed, Routine, Constipati on [facility] benzocaine- menthol (DERMOPLAST ) 20-0.5 % topical spray 08-02 01:39: 11 Yes Topical, PRN, Starting on Fri08/01/22 at 193, Until Discontinu ed, Routine, Perineum discomfort [facility] ibuprofen 600 mg tablet 08-02 00:00: 00 Yes [id number] 102 600mg Take 1 tablet by mouth every 6 (six) hours as needed (Pain). Take with food or milk. [facility] fentaNYL-ro pivacaine 2 mcg/mL-0.1 % (PF) in NS 200 mL epidural infusion RTU 08-01 14:54: 00 08-02 03:10 :57 No Epidural, ONCE INTRA PROCEDURE, Starting on Fri08/01/22 at 0854, Until Fri08/01/22 at 2109, Routine, Intra-op [facility] lidocaine-e pinephrine (XYLOCAINE W/EPINEPHRI NE) 1.5 %-1:200,000 injection 08-01 14:46: 00 08-02 03:10 :57 No Intraderma l, ONCE INTRA PROCEDURE, Starting on Fri08/01/22 at 0846, Until Fri08/01/22 at 2110, Routine, Intra-op [facility] penicillin g pot in dextrose 3 million unit/50 mL RTU iv piggyback 3 Million Units 08-01 05:00: 00 08-02 01:40 :13 No 310 3 Million Units, IV Piggyback, Q4H ABX, First dose on Fri07/31/22 at 2300, Until Discontinu ed, Administer over 60 Minutes, 50 mL
Reas on for Anti-Infec tive: Empiric Non-Surgic al Prophylaxi s
Du ration of therapy: 72 hours
S pecific indication : GBS prophylaxi s [facility] penicillin g potassium 5 Million Units in NaCl 0.9% (NS) 100 mL MINI-BAG 08-01 00:45: 00 08-01 07:17 :00 No 510 5 Million Units, IV Piggyback, ONCE, 1 dose, On Fri07/31/22 at 1845, Administer over 60 Minutes, 100 mL
Reas on for Anti-Infec tive: Empiric Non-Surgic al Prophylaxi s
Durat ion of therapy: 72 hours
S pecific indication : GBS prophylaxi s [facility] misoprostol (CYTOTEC) quarter-tab let 25 mcg 07-31 22:15: 00 07-31 23:17 :00 No 25ug 25 mcg, Oral, ONCE, 1 dose, On Fri07/31/22 at 1615, Routine [facility] FENTanyl PF (SUBLIMAZE (PF)) injection 100 mcg 07-31 22:14: 40 08-02 01:40 :13 No 100ug 100 mcg, Slow IV Push, Q1HPRN, Starting on Fri07/31/22 at 1614, Until [place] 08/01/22 at 1940, Routine, Pain (scale 4-6), Pain (scale 7-10) [facility] misoprostol (CYTOTEC) quarter-tab let 25 mcg 07-31 22:12: 00 08-02 01:40 :13 No 25ug 25 mcg, Vaginal, Q4HPRN, 4 doses, Starting on Fri07/31/22 at 1612, Until [place] 08/01/22 at 1940, Routine, Cervical rippening [facility] oxytocin (PITOCIN) 30 units in NS 500 mL IV infusion 07-31 22:12: 00 08-02 01:40 :13 No 2mU/min at 2-40 mL/hr, IV Infusion, TITRATE, Starting on Fri07/31/22 at 1612, Until [place] 08/01/22 at 1940, Routine [facility] lactated ringers IV infusion 500 mL 07-31 22:12: 00 08-02 01:40 :13 No 500mL at 999 mL/hr, 500 mL, IV Infusion, PRN - SEE INSTRUCTIO NS, Starting on Fri07/31/22 at 1612, Until [place] 08/01/22 at 1940, Routine [facility] D5W-LR IV infusion 1,000 mL 07-31 22:12: 00 08-02 01:40 :13 No 1000mL at 1-125 mL/hr, IV Infusion, TITRATE, Starting on Fri07/31/22 at 1612, Until [place] 08/01/22 at 1940, Routine [facility] sodium citrate-cit roxana acid (BICITRA) 500-334 mg/5 mL solution 30 mL 07-31 22:12: 00 08-01 13:59 :00 No 30mL 30 mL, Oral, PRE-PROCED URE ONCE, 1 dose, Starting on Fri07/31/22 at 1612, Until Discontinu ed, Routine, Surgery/Pr ocedure [facility] aspirin 81 mg EC tablet 18 00:00: 00 Yes [id number] 81mg Take 1 tablet by mouth in the morning. [facility] ondansetron 4 mg disintegrat ing tablet 02-03 00:00: 00 02-21 00:00 :00 No [id number] 4mg Take 1 tablet by mouth every 8 (eight) hours as needed for Nausea and Vomiting (N/V). [facility] ondansetron 4 mg disintegrat ing tablet 7-05 00:00: 00 01-27 00:00 :00 No [id number] 4mg Take 1 tablet by mouth every 8 (eight) hours as needed for Nausea and Vomiting (N/V). [facility] azithromyci n 500 mg tablet 11-30 00:00: 00 12-01 04:59 :00 No [id number] 4102 1000mg Take 2 tablets by mouth once now for 1 dose. [facility] vit 33-iron-fol ic-dha (SELECT-OB + DHA) 29 mg iron-1 mg -250 mg combo pack 11-29 00:00: 00 Yes [id number] 1{packe t} Take 1 Packet by mouth daily. [facility] vit 33-iron-fol ic-dha (SELECT-OB + DHA) 29 mg iron-1 mg -250 mg combo pack 11-29 00:00: 00 Yes [id number] 1{packe t} Take 1 Packet by mouth daily. [facility] pyridoxine, VITAMIN B-6, 25 mg tablet 11-29 00:00: 00 01-25 00:00 :00 No [id number] 25mg Take 1 tablet by mouth 3 (three) times daily. [facility] doxylamine 25 mg tablet 526 00:00: 00 01-25 00:00 :00 No [id number] 25mg Take 1 tablet by mouth at bedtime. [facility] labetaloL 100 mg tablet 4-19 00:00: 00 Yes [facility] Immunizations Ordered Immunization Name Filled Immunization Name Date Status Comments Source TD 2022-05-17 00:00:00 Completed [facility] TDAP 2022-05-17 00:00:00 Completed [facility] TDAP 2022-05-17 00:00:00 Completed [facility] TDAP 2022-05-17 00:00:00 Completed [facility] TDAP 2022-05-17 00:00:00 Completed [facility] TDAP 2022-05-17 00:00:00 Completed [facility] TDAP 2022-05-17 00:00:00 Completed [facility] TDAP 2022-05-17 00:00:00 Completed [facility] TDAP 2022-05-17 00:00:00 Completed [facility] TDAP 2022-05-17 00:00:00 Completed [facility] TDAP 2022-05-17 00:00:00 Completed [facility] TDAP 2022-05-17 00:00:00 Completed [facility] TDAP 2022-05-17 00:00:00 Completed [facility] TDAP 2022-05-17 00:00:00 Completed [facility] TDAP 2022-05-17 00:00:00 Completed [facility] TDAP 2022-05-17 00:00:00 Completed [facility] TDAP 2022-05-17 00:00:00 Completed [facility] TDAP 2022-05-17 00:00:00 Completed [facility] TDAP 2022-05-17 00:00:00 Completed [facility] TDAP 2022-05-17 00:00:00 Completed [facility] TDAP 2022-05-17 00:00:00 Completed [facility] TDAP 2022-05-17 00:00:00 Completed [facility] TDAP 2022-05-17 00:00:00 Completed [facility] TDAP 2022-05-17 00:00:00 Completed [facility] TDAP 2022-05-17 00:00:00 Completed [facility] TDAP 2022-05-17 00:00:00 Completed [facility] SARS-COV-2 COVID-19 VACCINE - (MODERNA) 2022-01-29 00:00:00 Completed Meningococcal Polysaccharide (groups A, C, Y and W-135) conjugate vaccine (MCV4P) 2021-04-23 00:00:00 Completed SARS-COV-2 COVID-19 VACCINE - (MODERNA) 2020-09-29 00:00:00 Completed HPV9 2018-01-29 00:00:00 Completed HPV9 2017-12-08 00:00:00 Completed HPV9 2016-11-19 00:00:00 Completed Meningococcal Polysaccharide (groups A, C, Y and W-135) conjugate vaccine (MCV4P) 2016-11-19 00:00:00 Completed Influenza Virus Vaccine Quad IM 6-35 MO 2016-04-08 00:00:00 Completed TDAP 2013-02-22 00:00:00 Completed [facility] Meningococcal Polysaccharide (groups A, C, Y and W-135) conjugate vaccine (MCV4P) 2013-02-22 00:00:00 Completed Varicella (varivax)(chicken pox) 2013-02-22 00:00:00 Completed HEPATITIS A 2005-10-07 00:00:00 Completed Influenza Virus Vaccine - Whole 2005-06-05 00:00:00 Completed Influenza Virus Vaccine - Whole 2005-04-22 00:00:00 Completed HEPATITIS A 2005-02-21 00:00:00 Completed Pneumococcal 7 Conjugate, PCV7 (Prevnar7) 2005-02-21 00:00:00 Completed MMR 2004-07-31 00:00:00 Completed IPV 2004-07-31 00:00:00 Completed DTAP 2004-07-31 00:00:00 Completed DTaP, Unspecified Formulation 2004-07-31 00:00:00 Completed DTAP 2003-07-15 00:00:00 Completed DTaP, Unspecified Formulation 2003-07-15 00:00:00 Completed MMR 2001-07-08 00:00:00 Completed Varicella (varivax)(chicken pox) 2001-07-08 00:00:00 Completed HIB 4 Dose Schedule 2001-07-08 00:00:00 Completed Hib-HbOC 2001-07-08 00:00:00 Completed Hep B, Adol or Pedi Dosage 2001-01-09 00:00:00 Completed Pneumococcal 7 Conjugate, PCV7 (Prevnar7) 2001-01-09 00:00:00 Completed IPV 2001-01-09 00:00:00 Completed HIB 4 Dose Schedule 2001-01-09 00:00:00 Completed DTAP 2001-01-09 00:00:00 Completed DTaP, Unspecified Formulation 2001-01-09 00:00:00 Completed Hib-HbOC 2001-01-09 00:00:00 Completed IPV 2000 00:00:00 Completed HIB 4 Dose Schedule 2000 00:00:00 Completed DTAP 2000 00:00:00 Completed DTaP, Unspecified Formulation 2000 00:00:00 Completed Hib-HbOC 2000 00:00:00 Completed Hep B, Adol or Pedi Dosage 2000 00:00:00 Completed IPV 2000 00:00:00 Completed HIB 4 Dose Schedule 2000 00:00:00 Completed DTAP 2000 00:00:00 Completed DTaP, Unspecified Formulation 2000 00:00:00 Completed Hib-HbOC 2000 00:00:00 Completed Hep B, Adol or Pedi Dosage 2000 00:00:00 Completed Fluarix (IIV3) - SDS - 0.5mL Fluarix (IIV3) - SDS - 0.5mL Unknown Completed [facility] Vital Signs Vital Name Observation Time Observation Value Comments S ource height 2024-04-01 13:20:00 64 [in_i] Commo n [facility] weight 2024-04-01 13:20:00 278.8 [lb_av] Co [facility] temperature 2024-04-01 13:20:00 97.4 [degF] Com mon [facility] bmi 2024-04-01 13:20:00 47.85 kg/m2 Comm on [facility] oximetry 2024-04-01 13:20:00 97 % Commo n [facility] blood pressure systolic 2024-04-01 13:20:00 131 mm[Hg] Common [facility] blood pressure diastolic 2024-04-01 13:20:00 68 mm[Hg] Common [facility] height 2024-03-01 15:00:00 64 [in_i] Commo n [facility] weight 2024-03-01 15:00:00 279.2 [lb_av] Co mmon [facility] temperature 2024-03-01 15:00:00 98.1 [degF] Com mon [facility] bmi 2024-03-01 15:00:00 47.92 kg/m2 Comm on [facility] oximetry 2024-03-01 15:00:00 99 % Commo n [facility] blood pressure systolic 2024-03-01 15:00:00 156 mm[Hg] Common [facility] blood pressure diastolic 2024-03-01 15:00:00 88 mm[Hg] Common [facility] Systolic blood pressure 2023-02-27 21:04:00 114 mm[Hg] [facility] Diastolic blood pressure 2023-02-27 21:04:00 73 mm[Hg] [facility] Heart rate 2023-02-27 21:04:00 89 /min [facility] Body temperature 2023-02-27 21:04:00 36.78 Marisol [facility] Body height 2023-02-27 21:04:00 165.1 cm [facility] Body weight 2023-02-27 21:04:00 65.772 kg [facility] BMI 2023-02-27 21:04:00 24.13 kg/m2 [facility] Systolic blood pressure 2022-12-13 16:40:00 138 mm[Hg] [facility] Diastolic blood pressure 2022-12-13 16:40:00 88 mm[Hg] [facility] Heart rate 2022-12-13 16:40:00 76 /min [facility] Body temperature 2022-12-13 16:40:00 36.72 Marisol [facility] Respiratory rate 2022-12-13 16:40:00 18 /min [facility] Body height 2022-12-13 16:40:00 165.1 cm [facility] Body weight 2022-12-13 16:40:00 107.23 kg [facility] BMI 2022-12-13 16:40:00 39.34 kg/m2 [facility] Systolic blood pressure 2022-09-10 17:10:00 121 mm[Hg] [facility] Diastolic blood pressure 2022-09-10 17:10:00 80 mm[Hg] [facility] Heart rate 2022-09-10 17:10:00 83 /min [facility] Body temperature 2022-09-10 17:10:00 36.83 Marisol [facility] Respiratory rate 2022-09-10 17:10:00 17 /min [facility] Body height 2022-09-10 17:10:00 165.1 cm [facility] Body weight 2022-09-10 17:10:00 99.338 kg [facility] BMI 2022-09-10 17:10:00 36.44 kg/m2 [facility] Systolic blood pressure 2022-08-21 16:41:00 116 mm[Hg] [facility] Diastolic blood pressure 2022-08-21 16:41:00 79 mm[Hg] [facility] Heart rate 2022-08-21 16:41:00 88 /min [facility] Body temperature 2022-08-21 16:41:00 36.72 Marisol [facility] Respiratory rate 2022-08-21 16:41:00 17 /min [facility] Body height 2022-08-21 16:41:00 165.1 cm [facility] Body weight 2022-08-21 16:41:00 97.977 kg [facility] BMI 2022-08-21 16:41:00 35.94 kg/m2 [facility] Systolic blood pressure 2022-08-06 15:53:00 132 mm[Hg] [facility] Diastolic blood pressure 2022-08-06 15:53:00 88 mm[Hg] [facility] Heart rate 2022-08-06 15:53:00 96 /min [facility] Body temperature 2022-08-06 15:53:00 36.72 Marisol [facility] Respiratory rate 2022-08-06 15:53:00 18 /min [facility] Body height 2022-08-06 15:53:00 165.1 cm [facility] Body weight 2022-08-06 15:53:00 102.83 kg [facility] BMI 2022-08-06 15:53:00 37.72 kg/m2 [facility] Systolic blood pressure 2022-08-03 02:00:00 135 mm[Hg] [facility] Diastolic blood pressure 2022-08-03 02:00:00 86 mm[Hg] [facility] Heart rate 2022-08-03 02:00:00 74 /min [facility] Body temperature 2022-08-03 02:00:00 36.22 Marisol [facility] Respiratory rate 2022-08-03 02:00:00 18 /min [facility] Oxygen saturation in Arterial blood by Pulse oximetry 2022-08-03 02:00:00 100 /min [facility] Body height 2022-07-31 22:01:00 165.1 cm [facility] Body weight 2022-07-31 22:01:00 109.77 kg [facility] BMI 2022-07-31 22:01:00 40.27 kg/m2 [facility] Systolic blood pressure 2022-07-30 14:52:00 125 mm[Hg] [facility] Diastolic blood pressure 2022-07-30 14:52:00 89 mm[Hg] [facility] Heart rate 2022-07-30 14:52:00 80 /min [facility] Body temperature 2022-07-30 14:52:00 36.89 Marisol [facility] Respiratory rate 2022-07-30 14:52:00 18 /min [facility] Body height 2022-07-30 14:52:00 165.1 cm [facility] Body weight 2022-07-30 14:52:00 110.859 kg [facility] BMI 2022-07-30 14:52:00 40.67 kg/m2 [facility] Systolic blood pressure 2022-07-23 14:15:00 134 mm[Hg] [facility] Diastolic blood pressure 2022-07-23 14:15:00 88 mm[Hg] [facility] Heart rate 2022-07-23 14:15:00 80 /min [facility] Body temperature 2022-07-23 14:15:00 36.83 Marisol [facility] Respiratory rate 2022-07-23 14:15:00 16 /min [facility] Body height 2022-07-23 14:15:00 165.1 cm [facility] Body weight 2022-07-23 14:15:00 109.907 kg [facility] BMI 2022-07-23 14:15:00 40.32 kg/m2 [facility] Oxygen saturation in Arterial blood by Pulse oximetry 2022-07-23 14:15:00 98 /min [facility] Systolic blood pressure 2022-07-17 15:07:00 128 mm[Hg] [facility] Diastolic blood pressure 2022-07-17 15:07:00 85 mm[Hg] [facility] Heart rate 2022-07-17 15:07:00 88 /min [facility] Body temperature 2022-07-17 15:07:00 36.89 Marisol [facility] Respiratory rate 2022-07-17 15:07:00 18 /min [facility] Body height 2022-07-17 15:07:00 165.1 cm [facility] Body weight 2022-07-17 15:07:00 109.77 kg [facility] BMI 2022-07-17 15:07:00 40.27 kg/m2 [facility] Systolic blood pressure 2022-07-10 22:34:00 124 mm[Hg] [facility] Diastolic blood pressure 2022-07-10 22:34:00 82 mm[Hg] [facility] Heart rate 2022-07-10 22:34:00 103 /min [facility] Body height 2022-07-10 22:34:00 165.1 cm [facility] Body weight 2022-07-10 22:34:00 107.956 kg [facility] BMI 2022-07-10 22:34:00 39.61 kg/m2 [facility] Oxygen saturation in Arterial blood by Pulse oximetry 2022-07-10 22:34:00 98 /min [facility] Systolic blood pressure 2022-07-03 21:22:00 131 mm[Hg] [facility] Diastolic blood pressure 2022-07-03 21:22:00 88 mm[Hg] [facility] Heart rate 2022-07-03 21:22:00 85 /min [facility] Body temperature 2022-07-03 21:22:00 37.11 [facility] Respiratory rate 2022-07-03 21:22:00 16 /min [facility] Body height 2022-07-03 21:22:00 165.1 cm [facility] Body weight 2022-07-03 21:22:00 107.684 kg [facility] BMI 2022-07-03 21:22:00 39.51 kg/m2 [facility] Oxygen saturation in Arterial blood by Pulse oximetry 2022-07-03 21:22:00 100 /min [facility] Systolic blood pressure 2022-06-19 22:11:00 129 mm[Hg] [facility] Diastolic blood pressure 2022-06-19 22:11:00 86 mm[Hg] [facility] Heart rate 2022-06-19 22:11:00 82 /min [facility] Body temperature 2022-06-19 22:11:00 36.72 [facility] Respiratory rate 2022-06-19 22:11:00 16 /min [facility] Body height 2022-06-19 22:11:00 165.1 cm [facility] Body weight 2022-06-19 22:11:00 107.276 kg [facility] BMI 2022-06-19 22:11:00 39.36 kg/m2 [facility] saturation in Arterial blood by Pulse oximetry 2022-06-19 22:11:00 98 /min [facility] Systolic blood pressure 2022-06-05 22:51:00 122 mm[Hg] [facility] Diastolic blood pressure 2022-06-05 22:51:00 82 mm[Hg] [facility] Heart rate 2022-06-05 22:51:00 81 /min [facility] Body temperature 2022-06-05 22:51:00 36.94 [facility] Respiratory rate 2022-06-05 22:51:00 18 /min [facility] Body height 2022-06-05 22:51:00 165.1 cm [facility] Body weight 2022-06-05 22:51:00 109.77 kg [facility] BMI 2022-06-05 22:51:00 40.27 kg/m2 [facility] Systolic blood pressure 2022-05-17 15:59:00 129 mm[Hg] [facility] Diastolic blood pressure 2022-05-17 15:59:00 85 mm[Hg] [facility] Heart rate 2022-05-17 15:59:00 84 /min [facility] Body temperature 2022-05-17 15:59:00 36.89 [facility] Body height 2022-05-17 15:59:00 165.1 cm [facility] Body weight 2022-05-17 15:59:00 106.777 kg [facility] BMI 2022-05-17 15:59:00 39.17 kg/m2 [facility] Systolic blood pressure 2022-04-24 21:02:00 121 mm[Hg] [facility] Diastolic blood pressure 2022-04-24 21:02:00 80 mm[Hg] [facility] Heart rate 2022-04-24 21:02:00 89 /min [facility] Body temperature 2022-04-24 21:02:00 37 [facility] Respiratory rate 2022-04-24 21:02:00 16 /min [facility] Body height 2022-04-24 21:02:00 165.1 cm [facility] Body weight 2022-04-24 21:02:00 105.189 kg [facility] BMI 2022-04-24 21:02:00 38.59 kg/m2 [facility] Oxygen saturation in Arterial blood by Pulse oximetry 2022-04-24 21:02:00 98 /min [facility] Systolic blood pressure 2022-03-21 21:42:00 124 mm[Hg] [facility] Diastolic blood pressure 2022-03-21 21:42:00 86 mm[Hg] [facility] Heart rate 2022-03-21 21:42:00 89 /min [facility] Body temperature 2022-03-21 21:42:00 36.72 [facility] Respiratory rate 2022-03-21 21:42:00 16 /min [facility] Body height 2022-03-21 21:42:00 165.1 cm [facility] Body weight 2022-03-21 21:42:00 106.142 kg [facility] BMI 2022-03-21 21:42:00 38.94 kg/m2 [facility] Oxygen saturation in Arterial blood by Pulse oximetry 2022-03-21 21:42:00 99 /min [facility] Procedures Procedure Date / Time Performed Performing Clinician Source CONSENT FOR CONTRACEPTION 2023-02-27 05:01:00 Doctor Unassigned, [place] [address] [facility] POCT TEST 2023-02-27 00:00:00 AdVivienne davis [facility] POCT TEST 2022-12-13 00:00:00 AdVivienne davis [facility] DIABETES TESTING REPORTS 2022-08-20 06:01:00 Doc tor Unassigned, [address] [facility] CBC WITH DIFF 2022-08-02 10:45:00 AdumVivienne [facility] CENTRAL NEURAXIAL BLOCK 2022-08-01 14:30:00 Wilian Francois [facility] CBC WITH DIFF 2022-07-31 22:47:00 Adum, Vivienne L [facility] HEPATITIS B SURFACE ANTIGEN 2022-07-31 22:47:00 Adum, Vivienne Johnson [facility] ADC OR MARIALUISA ONLY - RPR 2022-07-31 22:47:00 Adum, Vivienne Johnson [facility] HIV 1/2 AG-AB WITH REFLEX 2022-07-31 22:47:00 Adum, Vivienne Johnson [facility] HB ABO GROUPING 2022-07-31 22:20:00 Adum, Vivienne Lopez [facility] HOSPITAL ADMISSION 2022-07-31 06:01:00 Doctor Un assigned, [address] [facility] POCT URINALYSIS W/O SPECIFIC GRAVITY 2022-07-30 00:00:00 Adum, Vivienne Johnson [facility] CONSENT/REFUSAL FOR DIAGNOSIS AND TREATMENT 2022-07-23 20:37:10 Doctor Unassigned, [address] [facility] ASSIGNMENT OF BENEFITS 2022-07-23 20:36:42 Docto r Unassigned, [address] [facility] POCT URINALYSIS W/O SPECIFIC GRAVITY 2022-07-23 00:00:00 Adum, Vivienne Johnson [facility] POCT URINALYSIS W/O SPECIFIC GRAVITY 2022-07-17 00:00:00 Adum, Vivienne Johnson [facility] POCT URINALYSIS 2022-07-10 22:45:00 Adum, Vivienne Lopez [facility] DSU PRE-OP 2022-07-10 06:01:00 Doctor Unass igned, [address] [facility] POCT URINALYSIS W/O SPECIFIC GRAVITY 2022-07-03 00:00:00 Adum, Vivienne Johnson [facility] POCT URINALYSIS W/O SPECIFIC GRAVITY 2022-06-19 00:00:00 Adum, Vivienne Johnson [facility] POCT URINALYSIS W/O SPECIFIC GRAVITY 2022-06-05 00:00:00 Adum, Vivienne Johnson [facility] TDAP VACCINE, >11 YRS, IM 2022-05-17 16:01:33 Adum, Vivienne Johnson [facility] POCT URINALYSIS W/O SPECIFIC GRAVITY 2022-05-17 00:00:00 Adum, Vivienne Alex [facility] POCT URINALYSIS W/O SPECIFIC GRAVITY 2022-04-24 00:00:00 Lucioryan Vivienne Alex [facility] POCT URINALYSIS W/O SPECIFIC GRAVITY 2022-03-21 00:00:00 Yovani Velasquez [facility] Encounters Start Date/Time End Date/Time Encounter Type Admission Type Attending [facility] Facility Care Department Encounter ID Source 2024-07-05 15:51:00 Outpatient Chastity Longoria [facility] [id number] [facility] 2024-07-01 10:37:00 Outpatient Chastity Longoria [facility] [id number] [facility] 2024-05-31 13:00:00 Inpatient Pepper Meade [facility] [id number] [facility] 2024-03-30 11:17:00 Outpatient Chastity Longoria [facility] [id number] [facility] 2024-03-01 14:54:02 Outpatient Chastity Longoria [facility] [id number] [facility] 2024-07-19 10:00:00 2024-07-19 10:00:00 Outpatient R DEAN-TRINI S, LIN DEAN-TRINI S, LIN [facility] [id number] [facility] 2024-07-16 00:00:00 2024-07-16 10:55:23 Telephone Dean-Trini s, Lin [facility] 1.2.840.114 350.1.13.10 4.2.7.2.686 [id number] [facility] 2024-07-13 10:00:00 2024-07-13 10:00:00 Outpatient VIVIENNE GONZÁLES VIVIAN [facility] [id number] [facility] 2024-06-28 00:00:00 2024-06-28 12:06:46 Telephone LucioVivienne davis [facility] 1..840.114 350.1.13.10 4.2.7.2.686 [id number] 134 [id number] [facility] 2024-05-31 08:00:00 2024-05-31 08:00:00 Outpatient Pepper Roach [facility] [id number] [facility] 2024-04-01 00:00:00 2024-04-01 00:00:00 (WELLNESS) Wellness Visit [facility] [id number] [facility] 2024-03-03 00:00:00 2024-03-03 00:00:00 (TEL) [facility] [id number] [facility] 2024-03-01 00:00:00 2024-03-01 00:00:00 OFFICE VISIT NEW PT LEVEL 4 [facility] [id number] [facility] 2023-08-29 08:00:00 2023-08-29 08:00:00 Outpatient R VIVIENNE CABALLERO [facility] [id number] [facility] 2023-05-04 00:00:00 2023-05-04 00:00:00 Outpatient [id number] diyala_S PRIV [facility] [id number] [facility] 2023-02-27 15:45:00 2023-02-27 16:25:23 Outpatient R VIVIENNE CABALLERO [facility] [id number] [facility] 2023-02-27 15:45:00 2023-02-27 16:25:23 Office Visit Ada Vivienne Alex [facility] 1..840.114 350.1.13.10 4.2.7.2.686 [id number] [facility] 2023-02-27 00:00:00 2023-02-27 00:00:00 Orders Only Doctor Unassigned, [place] [facility] 1.114 350.1.13.10 4.2.7.2.686 [id number] [facility] 2022-12-13 13:15:00 2022-12-13 13:30:00 Die Mechanic Visit Pob, [facility].114 350.1.13.10 4.2.7.2.686 [id number] [facility] 2022-12-13 11:00:00 2022-12-13 13:23:14 Outpatient R ADA VIVIENNE [facility] [id number] [facility] 2022-12-13 11:00:00 2022-12-13 13:23:14 Routine Visit [facility] 1.114 350.1.13.10 4.2.7.2.686 [id number] [facility] 2022-09-10 11:15:00 2022-09-10 11:41:36 Outpatient R ADA [facility] [id number] [facility] 2022-09-10 11:15:00 2022-09-10 11:41:36 Routine Visit Ada [facility] 1.114 350.1.13.10 4.2.7.2.686 [id number] [facility] 2022-08-21 10:45:00 2022-08-21 10:49:41 Outpatient R ADA [facility] [id number] [facility] 2022-08-21 10:45:00 2022-08-21 10:49:41 Routine Visit Cameron Rosas [facility] 1.114 350.1.13.10 4.2.7.2.686 [id number] [facility] 2022-08-20 00:00:00 2022-08-20 00:00:00 Orders Only Doctor Unassigned, [place] [address] [facility] 1.2.840.114 350.1.13.10 4.2.7.2.686 [id number] [facility] 2022-08-06 10:00:00 2022-08-06 10:15:00 Nurse Visit Nurse, [facility] AdryanVivienne [facility] 1.2.840.114 350.1.13.10 4.2.7.2.686 [id number] [facility] 2022-08-06 10:00:00 2022-08-06 10:00:00 Outpatient R ADVIVIENNE DAVIS [facility] [id number] [facility] 2022-08-05 00:00:00 2022-08-05 00:00:[address] [facility] 1.2840.114 350.1.13.10 4.2.7.2.686 [id number] 134 [id number] [facility] 2022-07-31 15:37:00 2022-08-02 21:29:00 Inpatient P ADRYAN VIVIENNE [facility] [id number] [facility] 2022-07-31 15:37:00 2022-08-02 21:29:00 Hospital Encounter Adryan Vivienne Alex [facility] 1.2.840.114 350.1.13.10 4.2.7.2.686 [id number] [facility] 2022-08-01 08:36:00 2022-08-01 21:10:00 Anesthesia Event Wilian Joshi [facility] 1.2.840.114 350.1.13.10 4.2.7.2.686 [id number] [facility] 2022-07-31 00:00:00 2022-07-31 00:00:00 Orders Only Doctor Unassigned, [place] [address] [facility] 1.2840.114 350.1.13.10 4.2.7.2.686 [id number] [facility] 2022-07-30 09:00:00 2022-07-30 09:13:15 Outpatient R ADUM, [facility] [id number] [facility] 2022-07-30 09:00:00 2022-07-30 09:13:15 Routine Visit Ad, [facility] 1..114 350.1.13.10 4.2.7.2.686 [id number] [facility] 2022-07-23 08:00:00 2022-07-23 08:42:03 Outpatient R ADUM, [facility] [id number] [facility] 2022-07-23 08:00:00 2022-07-23 08:42:03 Routine Visit Adum, [facility] 1..114 350.1.13.10 4.2.7.2.686 [id number] [facility] 2022-07-17 09:00:00 2022-07-17 09:31:34 Outpatient R ADUM, [facility] [id number] [facility] 2022-07-17 09:00:00 2022-07-17 09:31:34 Routine Visit Ad, [facility] 1..114 350.1.13.10 4.2.7.2.686 [id number] [facility] 2022-07-15 14:15:00 2022-07-15 14:27:56 Die Mechanic Visit 2, Adc Lab Adum, Vivienne Johnson [facility] 1.2.840.114 350.1.13.10 4.2.7.2.686 [id number] [facility] 2022-07-15 14:15:00 2022-07-15 14:15:00 Outpatient R ADUM, [facility] [id number] [facility] 2022-07-10 16:15:00 2022-07-10 17:17:28 Outpatient R ADUM, [facility] [id number] [facility] 2022-07-10 16:15:00 2022-07-10 17:17:28 Routine Visit Adum, Vivienne [facility] 1.2840.114 350.1.13.10 4.2.7.2.686 [id number] 134 [id number] [facility] 2022-07-10 00:00:00 2022-07-10 00:00:00 Orders Only Doctor Unassigned, [place] [facility] 1.2.840.114 350.1.13.10 4.2.7.2.686 [id number] [facility] 2022-07-05 13:30:00 2022-07-05 13:45:00 Die Mechanic Visit 2, Adc Lab Adum, [facility] 1.2.840.114 350.1.13.10 4.2.7.2.686 [id number] [facility] 2022-07-05 13:00:00 2022-07-05 13:30:00 Die Mechanic Visit Ultrasound, Luther Hammond [facility] PROFESSIONAL APPLICATION DESIGNER [facility] 1.2.840.114 350.1.13.10 4.2.7.2.686 [id number] [facility] 2022-07-05 13:00:00 2022-07-05 13:00:00 Outpatient P LUTHER AGRAWAL [facility] [id number] [facility] 2022-07-03 14:15:00 2022-07-03 15:47:40 Outpatient R ADUM, VIVIENNE [facility] [id number] [facility] 2022-07-03 14:15:00 2022-07-03 15:47:40 Routine Visit Adum, Vivienne [facility] 1.2840.114 350.1.13.10 4.2.7.2.686 [id number] [facility] 2022-06-25 00:00:00 2022-06-25 00:00:00 Telephone Adum Vivienne [facility] 1.2840.114 350.1.13.10 4.2.7.2.686 [id number] [facility] 2022-06-19 16:00:00 2022-06-19 16:39:50 Outpatient R ADUM, [facility] [id number] [facility] 2022-06-19 16:00:00 2022-06-19 16:39:50 [facility] 1.2840.114 350.1.13.10 4.2.7.2.686 [id number] [facility] 2022-06-05 16:15:00 2022-06-05 17:08:06 Outpatient R ADUM, VIVIENNE [facility] [id number] [facility] 2022-06-05 16:15:00 2022-06-05 17:08:06 Routine Visit Adum, [facility] 1.2840.114 350.1.13.10 4.2.7.2.686 [id number] [facility] 2022-05-17 09:45:00 2022-05-17 10:31:35 Routine Visit Adum, Vivienne Johnson [facility] 1.2.840.114 350.1.13.10 4.2.7.2.686 [id number] 134 [id number] [facility] 2022-05-17 08:30:00 2022-05-17 09:20:31 Outpatient R ADUM, VIVIENNE [facility] [id number] [facility] 2022-05-17 08:30:00 2022-05-17 09:20:31 Die Mechanic Visit 2, Adc Lab Adum, Vivienne Johnson [facility] 1.2.840.114 350.1.13.10 4.2.7.2.686 [id number] [facility] 2022-05-07 09:00:00 2022-05-07 09:45:00 Die Mechanic Visit Ultrasound, [facility] Shyann Good [facility] 1.2.840.114 350.1.13.10 4.2.7.2.686 [id number] 134 [id number] [facility] 2022-05-07 09:00:00 2022-05-07 09:00:00 Outpatient P SHYANN GOOD [facility] [id number] [facility] 2022-05-02 00:00:00 2022-05-02 00:00:00 Telephone Adum, Vivienne Johnson [facility] 1.2.840.114 350.1.13.10 4.2.7.2.686 [id number] 134 [id number] [facility] 2022-04-24 15:30:00 2022-04-24 16:36:47 Outpatient R ADRYAN, VIVIENNE [facility] [id number] [facility] 2022-04-24 15:30:00 2022-04-24 16:36:47 Routine Visit Adum, Vivienne L [facility] 1..114 350.1.13.10 4.2.7.2.686 [id number] [facility] 2022-04-04 13:00:00 2022-04-04 14:15:00 Die Mechanic Visit Ultrasound, Harpreet-Homar AgrawalLuther Jerod [facility] PROFESSIONAL APPLICATION DESIGNER [facility] 1..114 350.1.13.10 4.2.7.2.686 [id number] [facility] 2022-04-04 13:00:00 2022-04-04 13:00:00 Outpatient P LUTHER AGRAWAL [facility] [id number] [facility] 2022-03-28 09:45:00 2022-03-28 09:45:00 Outpatient P [facility] [id number] [facility] 2022-03-21 16:15:00 2022-03-21 17:05:46 Outpatient R YOVANI VELASQUEZ [facility] [id number] [facility] 2022-03-21 16:15:00 2022-03-21 17:05:46 Routine Visit Yovani Velasquez [facility] 1.114 350.1.13.10 4.2.7.2.686 [id number] 134 [id number] [facility] 2022-03-08 15:30:00 2022-03-08 15:45:00 Die Mechanic Visit 2, Adc Lab Ron Yovani [facility] 1..114 350.1.13.10 4.2.7.2.686 [id number] [facility] 2022-03-08 15:30:00 2022-03-08 15:30:00 Outpatient R YOVANI VELASQUEZ [facility] [id number] [facility] 2022-03-06 00:00:00 2022-03-06 00:00:[address] [facility] 1.0.114 350.1.13.10 4.2.7.2.686 [id number] [facility] 2022-02-21 16:15:00 2022-02-21 16:43:07 Outpatient R YOVANI VELASQUEZ [facility] [id number] [facility] 2022-02-21 16:15:00 2022-02-21 16:43:07 Routine Visit Ron Yovani [facility] 1..114 350.1.13.10 4.2.7.2.686 [id number] [facility] 2022-02-18 16:00:00 2022-02-18 16:00:00 Outpatient R YOVANI VELASQUEZ [facility] [id number] [facility] 2022-02-18 16:00:00 2022-02-18 16:00:00 Outpatient R YOVANI VELASQUEZ [facility] [id number] [facility] 2022-02-14 16:15:00 2022-02-14 16:15:00 Outpatient R YOVANI VELASQUEZ [facility] [id number] [facility] 2022-02-07 00:00:00 2022-02-07 00:00:[address] [facility] 1..114 350.1.13.10 4.2.7.2.686 [id number] [facility] 2022-02-07 00:00:00 2022-02-07 00:00:[address] [facility] 1.2840.114 350.1.13.10 4.2.7.2.686 [id number] [facility] 2022-02-01 00:00:00 2022-02-01 00:00:00 Nurse Triage Jo-Ann Grady [facility] 1.2.840.114 350.1.13.10 4.2.7.2.686 [id number] [facility] 2022-01-26 00:00:00 2022-01-26 00:00:[address] [facility] 1.2.840.114 350.1.13.10 4.2.7.2.686 [id number] [facility] 2022-01-25 00:00:00 2022-01-25 00:00:[address] [facility] 1.2.840.114 350.1.13.10 4.2.7.2.686 [id number] [facility] 2022-01-23 11:15:00 2022-01-23 11:30:00 Die Mechanic Visit 2, Adc Lab Yovani Velasquez [facility] 1.2.840.114 350.1.13.10 4.2.7.2.686 [id number] [facility] 2022-01-23 11:15:00 2022-01-23 11:15:00 Outpatient R YOVANI VELASQUEZ [facility] [id number] [facility] 2022-01-22 00:00:00 2022-01-22 00:00:[address] [facility] 1.2.840.114 350.1.13.10 4.2.7.2.686 [id number] [facility] 2022-01-21 08:00:00 2022-01-21 08:54:31 Outpatient R YOVANI VELASQUEZ [facility] [id number] [facility] 2022-01-21 08:00:00 2022-01-21 08:54:31 Routine Visit Yovani Velasquez [facility] 1..114 350.1.13.10 4.2.7.2.686 [id number] 134 [id number] [facility] 2022-01-04 00:00:00 2022-01-04 00:00:[address] [facility] 1.2840.114 350.1.13.10 4.2.7.2.686 [id number] 134 [id number] [facility] 2021-12-25 08:15:00 2021-12-25 08:30:00 Die Mechanic Visit 2, Adc Lab Yovani Velasquez [facility] 1.84.114 350.1.13.10 4.2.7.2.686 [id number] [facility] 2021-12-25 08:15:00 2021-12-25 08:15:00 Outpatient R YOVANI VELASQUEZ [facility] [id number] [facility] 2021-12-23 00:00:00 2021-12-23 00:00:00 Telephone Yovani Velasquez [facility] 1.2.114 350.1.13.10 4.2.7.2.686 [id number] [facility] 2021-12-21 15:00:00 2021-12-21 15:51:17 Outpatient R YOVANI VELASQUEZ [facility] [id number] [facility] 2021-12-21 15:00:00 2021-12-21 15:51:17 Routine Visit Yovani Velasquez [facility] 1.84.114 350.1.13.10 4.2.7.2.686 [id number] 134 [id number] [facility] 2021-12-21 15:00:00 2021-12-21 15:51:17 Outpatient R YOVANI VELASQUEZ [facility] [id number] [facility] 2021-12-21 09:30:00 2021-12-21 10:00:00 Routine Visit Ralph Sarahlayla [facility] 1.2.840.114 350.1.13.10 4.2.7.2.686 [id number] 134 [id number] [facility] 2021-12-21 09:30:00 2021-12-21 09:30:00 Outpatient R POPROSSCAMERON BOLANOS ABIMBOLANENAROSSLUIS MIGUEL [facility] [id number] [facility] 2021-12-21 00:00:00 2021-12-21 00:00:[address] [facility] 1.2840.114 350.1.13.10 4.2.7.2.686 [id number] 134 [id number] [facility] 2021-12-21 00:00:00 2021-12-21 00:00:00 Orders Only Doctor Unassigned, [place] [facility] 1.2.840.114 350.1.13.10 4.2.7.2.686 [id number] [facility] 2021-12-17 00:00:00 2021-12-17 00:00:00 Telephone Ron Yovani [facility] 1.2840.114 350.1.13.10 4.2.7.2.686 [id number] 134 [id number] [facility] 2021-12-17 00:00:00 2021-12-17 00:00:00 Telephone Ron Yovani [facility] 1.2840.114 350.1.13.10 4.2.7.2.686 [id number] 134 [id number] [facility] 2021-12-13 08:00:00 2021-12-13 08:36:35 Outpatient R YOVANI VELASQUEZ [facility] [id number] [facility] 2021-12-13 08:00:00 2021-12-13 08:36:35 Routine Visit Yovani Velasquez [facility] 1.2.840.114 350.1.13.10 4.2.7.2.686 [id number] 134 [id number] [facility] 2021-12-13 08:00:00 2021-12-13 08:00:00 Outpatient R YOVANI VELASQUEZ [facility] [id number] [facility] 2021-12-10 00:00:00 2021-12-10 00:00:00 Telephone Ron [facility] 1.2.840.114 350.1.13.10 4.2.7.2.686 [id number] 134 [id number] [facility] 2021-12-04 00:00:00 2021-12-04 00:00:00 Patient Secure Mariah Schafer [facility] 1.2840.114 350.1.13.10 4.2.7.2.686 [id number] 134 [id number] [facility] 2021-11-30 00:00:00 2021-11-30 00:00:00 Case Management Ron Yovani [facility] 1.2840.114 350.1.13.10 4.2.7.2.686 [id number] [facility] 2021-11-30 00:00:00 2021-11-30 00:00:00 Telephone Ron [facility] 1.2840.114 350.1.13.10 4.2.7.2.686 [id number] [facility] 2021-11-29 08:30:00 2021-11-29 09:22:25 Outpatient R YOVANI VELASQUEZ [facility] [id number] [facility] 2021-11-29 08:30:00 2021-11-29 09:22:25 Outpatient R YOVANI VELASQUEZ [facility] [id number] [facility] 2021-11-29 08:30:00 2021-11-29 09:22:25 Initial Visit Yovani Velasquez [facility] 1.0.114 350.1.13.10 4.2.7.2.686 [id number] 134 [id number] [facility] 2021-11-29 00:00:00 2021-11-29 00:00:00 Orders Only Doctor Unassigned, [place] [facility] 1..114 350.1.13.10 4.2.7.2.686 [id number] [facility] 2021-01-18 12:48:00 2021-01-18 12:48:00 Outpatient Moshe Lozano [facility] [id number] 37 [facility] 2020-03-28 13:39:47 2020-03-28 13:59:47 Laboratory Only Lab, [facility] 1.114 350.1.13.10 4.2.7.2.686 [id number] [facility] 2020-03-28 13:39:47 2020-03-28 13:59:47 Laboratory Only Lab, [facility] Office [facility] 1.114 350.1.13.10 4.2.7.2.686 [id number] 2020-03-28 13:40:00 2020-03-28 13:40:00 Outpatient Ritesh DESTINEENICK AARONTHIA [facility] [id number] [facility] 2020-03-28 00:00:00 2020-03-28 00:00:00 Letter (Out) Doctor Unassigned, [place] [facility] 1.2.114 350.1.13.10 4.2.7.2.686 [id number] [facility] 2020-03-28 00:00:00 2020-03-28 00:00:00 Letter (Out) Doctor Unassigned, [place] [facility] [id number] 350.1.13.10 4.2.7.2.686 [id number] Results Test Description Test Time Test Comments Results Result Co mments Source [facility] [id number] 21:05:00* Test Item Value Reference Range Interpretation Comme nts POCT PREG (test code = 1605) Negative On board controls acceptable with C Line (test code = 3574) Yes POCT PREG LOT # (test code = 3575) POCT PREG TEST DATE ( test code = 3576) [facility] [id number] 16:52:00* Test Item Value Reference Range Interpretation Comme nts POCT PREG (test code = 1605) Negative On board controls acceptable with C Line (test code = 3574) Yes POCT PREG LOT # (test code = 3575) POCT PREG TEST DATE ( test code = 3576) [facility] [id number] 11:18:05* Test Item Value Reference Range Interpretation Comme nts WBC (test code = 6690-2) See_Comment H [Automated message] The system which generated this result transmitted reference range: 4.30 - 11.10 10*3/?L. The reference range was not used to interpret this result as normal/abnormal. RBC (test code = 789-8) See_Comment [Automated message] The system which generated this result transmitted reference range: 3.93 - 5.25 10*6/?L. The reference range was not used to interpret this result as normal/abnormal. HGB (test code = 718-7) 12.7 g/dL 11.6-15.0 HCT (test code = 4544-3) 37.2 % 35.7-45.2 MCV (test code = 787-2) 93.5 fL 80.6-95.5 MCH (test code = 785-6) 31.9 pg 25.9-32.8 MCHC (test code = 786-4) 34.1 g/dL 31.6-35.1 RDW-SD (test code = 86738-7) 42.6 fL 39.0-49.9 RDW-CV (test code = 788-0) 12.3 % 12.0-15.5 PLT (test code = 777-3) See_Comment [Automated message] The system which generated this result transmitted reference range: 166 - 358 10*3/?L. The reference range was not used to interpret this result as normal/abnormal. MPV (test code = 08162-6) 9.7 fL 9.5-12.9 NRBC/100 WBC (test code = 2715923599) See_Comment [Automated message] The system which generated this result transmitted reference range: 0.0 - 10.0 /100 WBCs. The reference range was not used to interpret this result as normal/abnormal. NRBC x10^3 (test code = 7070635001) See_Comment [Automated message] The system which generated this result transmitted reference range: 10*3/?L. The reference range was not used to interpret this result as normal/abnormal. GRAN MAT (NEUT) % (test code = 770-8) 79.9 % IMM GRAN % (test code = 6821129506) 0.60 % LYMPH % (test code = 736-9) 10.2 % MONO % (test code = 5905-5) 8.9 % EOS % (test code = 713-8) 0.1 % BASO % (test code = 706-2) 0.3 % GRAN MAT x10^3(ANC) (test code = 0468846915) 12.60 10*3/uL 1.88-7.09 H IMM GRAN x10^3 (test code = 0954117001) 0.09 10*3/uL 0.00-0.06 H LYMPH x10^3 (test code = 731-0) 1.61 10*3/uL 1.32-3.29 MONO x10^3 (test code = 742-7) 1.41 10*3/uL 0.33-0.92 H EOS x10^3 (test code = 711-2) 0.03-0.39 L BASO x10^3 (test code = 704-7) 0.04 10*3/uL 0.01-0.07 Lab Interpretation (test code = 27051-4) Abnormal [facility] - ONCE [id number] 00:12:19 * Test Item Value Reference Range Interpretation Comme nts ABO & RH (test code = 20) A Positive Performed at [facility] Laboratory [facility] [address] [place] [address] Free: [phone] No. [id number] IAT (test code = 1185) Negative Performed at [facility] [address] [place] [address] Free: [phone] No. [id number] [facility]/O SPECIFIC [id number] 14:49:00* Test Item Value Reference Range Interpretation Comme nts POCT PH U (test code = 3254) n/a 5-8 POCT U LEUK EST (test code = 3263) n/a Negative - Negative POCT U NIT (test code = 3262) n/a Negative - Negati ve POCT U PROT (test code = 3259) trace Negative - Negat zhen POCT U GLU (test code = 3256) negative Negative - Negati ve POCT U KETONE (test code = 3258) n/a Negative - Neg ative POCT U BLD (test code = 3257) n/a Negative - Negati ve [facility] W/O SPECIFIC [id number] 14:22:00* Test Item Value Reference Range Interpretation Comme nts POCT PH U (test code = 3254) n/a 5-8 POCT U LEUK EST (test code = 3263) n/a Negative - Negative POCT U NIT (test code = 3262) n/a Negative - Negati ve POCT U PROT (test code = 3259) negative Negative - Negat zhen POCT U GLU (test code = 3256) negative Negative - Negati ve POCT U KETONE (test code = 3258) n/a Negative - Neg ative POCT U BLD (test code = 3257) n/a Negative - Negati ve [facility] URINALYSIS W/O SPECIFIC [id number] 15:08:00* Test Item Value Reference Range Interpretation Comme nts POCT PH U (test code = 3254) N/A 5-8 POCT U LEUK EST (test code = 3263) N/A Negative - Negative POCT U NIT (test code = 3262) N/A Negative - Negati ve POCT U PROT (test code = 3259) Negative Negative - Negat zhen POCT U GLU (test code = 3256) Negative Negative - Negati ve POCT U KETONE (test code = 3258) N/A Negative - Neg ative POCT U BLD (test code = 3257) N/A Negative - Negati ve [facility] URINALYSIS W SPECIFIC [id number] 22:45:00* Test Item Value Reference Range Interpretation Comme nts POCT U SP GRAV (test code = 3255) N/A 1.005-1.025 POCT PH U (test code = 3254) N/A 5-8 POCT U LEUK EST (test code = 3263) N/A Negative - Negative POCT U NIT (test code = 3262) N/A Negative - Negati ve POCT U PROT (test code = 3259) Negative Negative - Negat zhen POCT U GLU (test code = 3256) Negative Negative - Negati ve POCT U KETONE (test code = 3258) N/A Negative - Neg ative POCT U UROBILI (test code = 3260) N/A 0.2-1 POCT U BILI (test code = 3261) N/A Negative - Negat zhen POCT U BLD (test code = 3257) N/A Negative - Negati ve POCT U COLOR (test code = 3266) yellow POCT U APPEAR (test code = 3267) clear [facility] URINALYSIS W/O SPECIFIC [id number] 21:32:00* Test Item Value Reference Range Interpretation Comme nts POCT PH U (test code = 3254) n/a 5-8 POCT U LEUK EST (test code = 3263) n/a Negative - Negative POCT U NIT (test code = 3262) n/a Negative - Negati ve POCT U PROT (test code = 3259) negative Negative - Negat zhen POCT U GLU (test code = 3256) negative Negative - Negati ve POCT U KETONE (test code = 3258) n/a Negative - Neg ative POCT U BLD (test code = 3257) n/a Negative - Negati ve [facility] URINALYSIS W/O SPECIFIC [id number] 22:16:00* Test Item Value Reference Range Interpretation Comme nts POCT PH U (test code = 3254) n/a 5-8 POCT U LEUK EST (test code = 3263) n/a Negative - Negative POCT U NIT (test code = 3262) n/a Negative - Negati ve POCT U PROT (test code = 3259) negative Negative - Negat zhen POCT U GLU (test code = 3256) negative Negative - Negati ve POCT U KETONE (test code = 3258) n/a Negative - Neg ative POCT U BLD (test code = 3257) n/a Negative - Negati ve [facility] URINALYSIS W/O SPECIFIC [id number] 22:55:00* Test Item Value Reference Range Interpretation Comme nts POCT PH U (test code = 3254) N/A 5-8 POCT U LEUK EST (test code = 3263) N/A Negative - Negative POCT U NIT (test code = 3262) N/A Negative - Negati ve POCT U PROT (test code = 3259) Negative Negative - Negat zhen POCT U GLU (test code = 3256) Negative Negative - Negati ve POCT U KETONE (test code = 3258) N/A Negative - Neg ative POCT U BLD (test code = 3257) N/A Negative - Negati ve [facility] URINALYSIS W/O SPECIFIC [id number] 15:58:00* Test Item Value Reference Range Interpretation Comme nts POCT PH U (test code = 3254) n/a 5-8 POCT U LEUK EST (test code = 3263) n/a Negative - Negative POCT U NIT (test code = 3262) n/a Negative - Negati ve POCT U PROT (test code = 3259) Negative Negative - Negat zhen POCT U GLU (test code = 3256) Normal Negative - Negati ve POCT U KETONE (test code = 3258) n/a Negative - Neg ative POCT U BLD (test code = 3257) n/a Negative - Negati ve [facility] SPECIFIC [id number] 21:06:00* Test Item Value Reference Range Interpretation Comme nts POCT PH U (test code = 3254) n/a 5-8 POCT U LEUK EST (test code = 3263) n/a Negative - Negative POCT U NIT (test code = 3262) n/a Negative - Negati ve POCT U PROT (test code = 3259) trace Negative - Negat zhen POCT U GLU (test code = 3256) negative Negative - Negati ve POCT U KETONE (test code = 3258) n/a Negative - Neg ative POCT U BLD (test code = 3257) n/a Negative - Negati ve [facility] SPECIFIC [id number] 21:51:00* Test Item Value Reference Range Interpretation Comme nts POCT PH U (test code = 3254) n/a 5-8 POCT U LEUK EST (test code = 3263) n/a Negative - Negative POCT U NIT (test code = 3262) n/a Negative - Negati ve POCT U PROT (test code = 3259) trace Negative - Negat zhen POCT U GLU (test code = 3256) negative Negative - Negati ve POCT U KETONE (test code = 3258) n/a Negative - Neg ative POCT U BLD (test code = 3257) n/a Negative - Negati ve [facility]
[2024-07-17 13:39] LABS: Absolute Lymphocytes (CBC) 1.2 K/uL (0.7-4.9); Absolute Monocytes 0.4 K/uL (0.1-1.3); Absolute Neutrophil 5.4 K/uL (1.8-8.0); Basophils % 0.6 % (0-1.3); Eosinophils % 0.4 % (0-4.4); Hemoglobin 14.2 g/dL (12.0-15.0); Lymphocytes % 17.4 % (15.3-44.8); MCH 29.6 pg (27.0-35.0); MCHC 33.8 g/dL (32.0-36.0); MCV 87.6 fL (80-100); MPV 7.2 fL (7.6-11.3); Monocytes % 5.3 % (3.3-12.3); Neutrophils % 76.3 % (41.7-73.7); Platelets 308 thou/uL (152-406); RBC Red Blood Cell Count 4.79 M/uL (3.86-4.86)
[2024-07-17 13:53] LABS: Albumin 3.6 g/dL (3.4-5.0); Anion Gap 9.5 mEq/L (5.0-15.0); Bilirubin Total 0.4 mg/dL (0.2-1.0); Globulin 3.7 g/dL (2.3-3.5); Potassium 3.5 mEq/L (3.5-5.1); Protein, Total 7.3 g/dL (6.4-8.2)
[2024-07-17] MEDS ORDERED: NA CHLORIDE 0.9% 1,000 ML ONE (13:55)
[2024-07-17] MEDS ORDERED: ONDANSETRON 4 MG/2 ML VIAL ONE (13:55)
[2024-07-17 13:58] LABS: Specific Gravity 1.025 (1.005-1.030); Urine Bacteria <20 /HPF (<20); Urine Bilirubin NEGATIVE (Negative); Urine Blood Negative (Negative); Urine Clarity Extremely Turbid (Clear); Urine Color Yellow (Yellow); Urine Culture Reflex Order NOT NEEDED; Urine Glucose NEGATIVE (Negative); Urine Ketones NEGATIVE (Negative); Urine Microscopic Reflex YN ORDER UMIC; Urine Mucus Slight /HPF (None Seen); Urine Nitrite NEGATIVE (Negative); Urine Protein TRACE (Negative); Urine RBC <5 /HPF (None Seen); Urine Urobilinogen Normal (Normal); Urine WBC <5 /HPF (<5); Urine pH 7.5 (5.0-7.0)
--- NOTE | 2024-07-17 14:08 | EDPHYS ---
Physician Documentation [facility] Name: Melany Corrigan Age: 24 yrs Sex: Female : 2000 Arrival Date: 07/17/2024 Time: 12:51 Bed 14 Private MD: ED Physician Carolee Lucio HPI: 07/17 13:44 This 24 yrs old Female presents to ER via Ambulatory with complaints of 7wks , sp3 Vomiting. 13:44 24-year-old female G2, P1 at 7 weeks presents with nausea and vomiting sp3 consistent with her prior as well. She denies any significant abdominal pain, vaginal bleeding or discharge, pelvic cramping, low back pain, dysuria, urinary frequency, fever, URI symptoms, chest pain, shortness of breath, or any other signs or symptoms on ROS at this time.. Historical: - Allergies: 13:11 Codeine; ll1 - Home Meds: 13:14 labetalol 100 mg Oral tab 1 tab 2 times per day [Active]; ll1 - PMHx: 13:11 atrial tachycardia; ll1 - PSHx: 13:14 None; ll1 - Immunization history:: Adult Immunizations up to date. - Infectious Disease History:: Denies. - Social history:: Smoking status: Patient denies any tobacco usage or history of. ROS: 13:45 Constitutional: Negative for fever, chills, and weight loss, Eyes: Negative for injury, sp3 pain, redness, and discharge, ENT: Negative for injury, pain, and discharge, Neck: Negative for injury, pain, and swelling, Cardiovascular: Negative for chest pain, palpitations, and edema, Respiratory: Negative for shortness of breath, cough, wheezing, and pleuritic chest pain, Back: Negative for injury and pain, : Negative for injury, bleeding, discharge, and swelling, MS/Extremity: Negative for injury and deformity, Skin: Negative for injury, rash, and discoloration, Neuro: Negative for headache, weakness, numbness, tingling, and seizure, Psych: Negative for depression, anxiety, suicide ideation, homicidal ideation, and hallucinations, Allergy/Immunology: Negative for hives, rash, and allergies, Endocrine: Negative for neck swelling, polydipsia, polyuria, polyphagia, and marked weight changes, Hematologic/Lymphatic: Negative for swollen nodes, abnormal bleeding, and unusual bruising, 13:45 All other systems are negative, Exam: 13:46 Constitutional: This is a well developed, well nourished patient who is awake, alert, sp3 and in no acute distress. Head/Face: Normocephalic, atraumatic. Eyes: Pupils equal round and reactive to light, extra-ocular motions intact. Lids and lashes normal. Conjunctiva and sclera are non-icteric and not injected. Cornea within normal limits. Periorbital areas with no swelling, redness, or edema. Neck: Trachea midline, no thyromegaly or masses palpated, and no cervical lymphadenopathy. Supple, full range of motion without nuchal rigidity, or vertebral point tenderness. No Meningismus. Chest/axilla: Normal chest wall appearance and motion. Nontender with no deformity. No lesions are appreciated. Cardiovascular: Regular rate and rhythm with a normal S1 and S2. No gallops, murmurs, or rubs. Normal PMI, no JVD. No pulse deficits. Respiratory: Lungs have equal breath sounds bilaterally, clear to auscultation and percussion. No rales, rhonchi or wheezes noted. No increased work of breathing, no retractions or nasal flaring. Abdomen/GI: Soft, non-tender, with normal bowel sounds. No distension or tympany. No guarding or rebound. No evidence of tenderness throughout. Back: No spinal tenderness. No costovertebral tenderness. Full range of motion. Skin: Warm, dry with normal turgor. Normal color with no rashes, no lesions, and no evidence of cellulitis. MS/ Extremity: Pulses equal, no cyanosis. Neurovascular intact. Full, normal range of motion. Neuro: Awake and alert, GCS 15, oriented to person, place, time, and situation. Cranial nerves II-XII grossly intact. Motor strength 5/5 in all extremities. Sensory grossly intact. Cerebellar exam normal. Normal gait. Psych: Awake, alert, with orientation to person, place and time. Behavior, mood, and affect are within normal limits. 13:46 Abdomen/GI: Patient nauseated but not actively retching. Patient in no acute distress resting comfortably. Vital signs are normal., Vital Signs: 13:15 BP 128 / 88; Pulse 82; Resp 17; Temp 97.2; Pulse Ox 100% ; Weight 126.1 kg; Height 5 ll1 ft. 3 in. ; Pain 5/10; 14:20 BP 117 / 84; Pulse 80; Resp 17; Pulse Ox 99% on R/A; rs5 13:15 Body Mass Index 49.24 (126.10 kg, 160.02 cm) ll1 13:15 Pain Scale: Adult ll1 MDM: 13:10 Medical Screening Exam initiated sp3 13:46 Data reviewed: vital signs, nurses notes, lab test result(s). ED course: 24-year-old sp3 female with related vomiting. Differential diagnosis includes -induced vomiting, other viral illness, foodborne illness, among others. Patient not septic, and shock, or have any other critical GI pathology. No [employer]PER[employer] symptoms noted. We will obtain general labs, and administer ondansetron IV and normal saline for symptomatic control. 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 07/17 13:20 Order name: CBC with Diff; Complete Time: 14:07 3 07/17 13:20 Order name: CMP; Complete Time: 14:07 sp3 07/17 13:20 Order name: Lipase; Complete Time: 14:07 3 07/17 13:20 Order name: Urinalysis w/ reflexes; Complete Time: 14:07 3 07/17 13:20 Order name: IV Saline Lock; Complete Time: 13:46 sp3 07/17 13:20 Order name: Labs collected and sent; Complete Time: 13:46 sp3 Administered Medications: 13:30 Drug: Ondansetron IVP 4 mg IVP once; over 2 minutes Route: IVP; Site: right antecubital;rs5 14:01 Follow up: Response: No adverse reaction; Nausea is decreased rs5 13:30 Drug: NS 0.9% IV 1000 ml IV at 1 bolus Per protocol; to be given as a bolus over 60 rs5 minutes Route: IV; Rate: 1 bolus; Site: right antecubital; 14:45 Follow up: Response: No adverse reaction; IV Status: Completed infusion; IV Intake: rs5 999ml Disposition Summary: 07/17/24 14:08 Discharge Ordered Notes: Location: Home sp3 Condition: Stable sp3 Diagnosis - related emesis/vomiting, hyperemesis gravidarum sp3 Followup: sp3 - With: Private Physician - When: Upon discharge from the Emergency Department - Reason: Recheck today's complaints Discharge Instructions: - Discharge Summary Sheet sp3 - Hyperemesis Gravidarum sp3 Forms: - Medication Reconciliation Form sp3 - Antibiotic Education sp3 - Prescription Opioid Use sp3 - Patient Portal Instructions sp3 - Leadership Thank You Letter sp3 Prescriptions: - ondansetron 8 mg Oral Tablet,disintegrating - take 1 tablet ORAL route every 12 hours; 20 tablet; Refills: 0, Product sp3 Selection Permitted Signatures: Dispatcher [employer] EDMS Piyush Monique, RN RN ll1 Carolee Lucio MD MD sp3 Emery Rincon RN RN rs5 Corrections: (The following items were deleted from the chart) 13:20 13:20 CBC+H.LAB.BRZ ordered. EDMS EDMS 13:20 13:20 COMPREHENSIVE METABOLIC PANEL+C.LAB.BRZ ordered. EDMS EDMS 13:20 13:20 LIPASE+C.LAB.BRZ ordered. EDMS EDMS 13:20 13:20 Urinalysis+U.LAB.BRZ ordered. EDMS EDMS
--- NOTE | 2024-07-17 14:08 | ER ---
Nurse's Notes [facility] Name: Melany Corrigan Age: 24 yrs Sex: Female : 2000 Arrival Date: 07/17/2024 Time: 12:51 Bed 14 Private MD: Diagnosis: related emesis/vomiting, hyperemesis gravidarum Presentation: 07/17 13:15 Chief complaint: Patient states: G2, P1 7 weeks . N/V for 3 days. Coronavirus ll1 screen: Client denies travel out of the [place] in the last 14 days. At this time, the client does not indicate any symptoms associated with coronavirus-19. Ebola Screen: Patient denies travel to an Ebola-affected area in the 21 days before illness onset. Initial Sepsis Screen: Does the patient meet any 2 criteria? No. Patient's initial sepsis screen is negative. Does the patient have a suspected source of infection? No. Patient's initial sepsis screen is negative. Risk Assessment: Do you want to hurt yourself or someone else? Patient reports no desire to harm self or others. Onset of symptoms was July 15, 2024. 13:15 Method Of Arrival: Ambulatory ll1 13:15 Acuity: JAVIER 3 ll1 Triage Assessment: 13:15 General: Appears uncomfortable, Behavior is calm, cooperative, appropriate for age. ll1 Pain: Complains of pain in abdomen Quality of pain is described as crampy. GI: Reports cramping, nausea, vomiting. Historical: - Allergies: 13:11 Codeine; ll1 - Home Meds: 13:14 labetalol 100 mg Oral tab 1 tab 2 times per day [Active]; ll1 - PMHx: 13:11 atrial tachycardia; ll1 - PSHx: 13:14 None; ll1 - Immunization history:: Adult Immunizations up to date. - Infectious Disease History:: Denies. - Social history:: Smoking status: Patient denies any tobacco usage or history of. Screenin:11 [facility] ED Fall Risk Assessment (Adult) History of falling in the last 3 months, rs5 including since admission No falls in past 3 months (0 pts) Confusion or Disorientation No (0 pts) Intoxicated or Sedated No (0 pts) Impaired Gait No (0 pts) Mobility Assist Device Used No (0 pt) Altered Elimination No (0 pt) Score/Fall Risk Level 0 - 2 = Low Risk Oriented to surroundings, Maintained a safe environment. Abuse screen: Denies threats or abuse. Nutritional screening: No deficits noted. Tuberculosis screening: No symptoms or risk factors identified. Assessment: 13:11 General: Appears in no apparent distress. uncomfortable, Behavior is calm, cooperative. rs5 Pain: Denies pain. Neuro: Level of Consciousness is awake, alert, obeys commands, Oriented to person, place, time, situation. Cardiovascular: Patient's skin is warm and dry. Respiratory: Airway is patent Respiratory effort is even, unlabored, Respiratory pattern is regular, symmetrical. GI: Abdomen is round non-distended, Reports nausea. : No signs and/or symptoms were reported regarding the genitourinary system. EENT: No signs and/or symptoms were reported regarding the EENT system. Derm: Skin is intact, Skin is pink, warm \T\ dry. Musculoskeletal: Range of motion: intact in all extremities. 14:11 Reassessment: Patient and/or family updated on plan of care and expected duration. Pain rs5 level reassessed. Patient is alert, oriented x 3, equal unlabored respirations, skin warm/dry/pink. Vital Signs: 13:15 BP 128 / 88; Pulse 82; Resp 17; Temp 97.2; Pulse Ox 100% ; Weight 126.1 kg; Height 5 ll1 ft. 3 in. ; Pain 5/10; 14:20 BP 117 / 84; Pulse 80; Resp 17; Pulse Ox 99% on R/A; rs5 13:15 Body Mass Index 49.24 (126.10 kg, 160.02 cm) ll1 13:15 Pain Scale: Adult ll1 ED Course: 12:53 Patient arrived in ED. mr 13:10 Carolee Lucio MD is Attending Physician. sp3 13:11 Arm band placed on. ll1 13:11 Patient has correct armband on for positive identification. Bed in low position. Call rs5 light in reach. Side rails up X2. 13:11 No provider procedures requiring assistance completed. rs5 13:15 Inserted saline lock: 20 gauge in right antecubital area, using aseptic technique. rs5 Blood collected. Flushed with 10 mL NS. 13:16 Triage completed. ll1 13:22 Rincon, Emery, RN is Primary Nurse. rs5 13:46 CMP Sent. ty 13:46 Lipase Sent. ty 13:46 Urinalysis w/ reflexes Sent. ty 13:46 Urine collected: clean catch specimen, clear. ty 14:20 Provided Education on: discharge instructions . rs5 14:20 IV discontinued, intact, bleeding controlled, No redness/swelling at site. Pressure rs5 dressing applied. Administered Medications: 13:30 Drug: Ondansetron IVP 4 mg IVP once; over 2 minutes Route: IVP; Site: right antecubital;rs5 14:01 Follow up: Response: No adverse reaction; Nausea is decreased rs5 13:30 Drug: NS 0.9% IV 1000 ml IV at 1 bolus Per protocol; to be given as a bolus over 60 rs5 minutes Route: IV; Rate: 1 bolus; Site: right antecubital; 14:45 Follow up: Response: No adverse reaction; IV Status: Completed infusion; IV Intake: rs5 999ml Medication: 14:00 VIS not applicable for this client. rs5 Intake: 14:45 IV: 999ml; Total: 999ml. rs5 Outcome: 14:08 Discharge ordered by . sp3 14:20 Discharged to home ambulatory, rs5 14:20 Condition: stable rs5 14:20 Discharge instructions given to patient, family, Instructed on discharge instructions, follow up and referral plans. medication usage, Demonstrated understanding of instructions, follow-up care, medications, Prescriptions given X 1, 14:23 Patient left the ED. rs5 Signatures: Vianney Madden, Reg Reg mr Piyush Monique RN RN ll1 Carolee Lucio MD MD sp3 Emery Rincon, CHERIE RN rs5 Chi Mcdonald ty Corrections: (The following items were deleted from the chart) 19:18 15:01 BP 117 / 84; Pulse 80bpm; Resp 17bpm; Pulse Ox 99% RA; rs5 rs5 19:20 19:19 IV Status: Completed infusion; IV Intake: 999ml rs5 rs5
[2024-07-20 15:21] VITALS: BP 128/88; TEMP 97.2; O2SAT 100
== END 2024-07-17 14:23 | disposition home or self-care (01) ==
LOC: ER 12:51
DX: O21.0 Mild hyperemesis gravidarum (principal); Z3A.01 Less than 8 weeks gestation of pregnancy; Z88.5 Allergy status to narcotic agent
CPT/HCPCS: 96361; 85025; 81001; 36415; 83690; 80053; 96374; 99284; J2405; J7030

== ENCOUNTER 2024-09-21 21:53 | Emergency (ER) | payer BC, OTHER ==
--- OUTSIDE RECORDS SUMMARY | 2024-09-21 21:58 | XMS REPORT | Continuity of Care Document ---
Author Name Unknown Address [address] [facility] [place] [address] [facility] [place] Address [address] 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 Name Role Phone CHASTITY LONGORIA Primary Care Physician Unavailab Chastity Bullock Attending Clinician Unavailable Pepepr Roach Attending Clinician Unavailable HARINI MEADOWS Attending Clinician HARINI Ramey Attending Clinician Boaz crowley Doctor Unassigned, [place] Attending Clinician U Harini aL MD Attending Clinician [phone]- [phone], [facility] Attending Clinician Unavailable Nurse, [facility] Attending Clinician Un available VIVIENNE CABALLERO Attending Clinician Unavailable VIVIENNE CABALLERO Attending Clinician Unavailable Vivienne Caballero MD Attending Clinician [phone] [email or web address] Attending Clinician Unavaila chas Doctor Unassigned, [place] Attending Clinician U navailable Pob, [facility] Attending Clinician Unavailtony Lanza NP, Jaclyn Attending Clinician [phone] Nurse, [facility] Attending Clinician Unavailable Wilian Beverly MD Attending Clinicia n 2, [facility] Attending Clinician Unavailable Ultrasound, [facility] Attending Clinician Unavaila chas Agrawal MD, Jagjit Newsome Attending Clinician + JAGJIT AGRAWAL Attending Clinician Unav ailable Ultrasound, [facility] Attending Clinician Unavailmatias Good MD, Renee Nathan Attending Clinician [phone] RENEE GOOD Attending Clinician UnavailYOVANI Smith Attending Clinician Unavailable Ron PADRON, Yovani Attending Clinician [phone] Miguel A CRESPO, Jo-Ann Johnson Attending Clinician JACLYN Ramírez Attending Clinician Unavaila Mariah Pina MA Attending Clinician Unavail Moshe May Attending Clinician Unavailabl eric Lab, [facility] Attending Clinician Unavailab Oziel Jackman Attending Clinician [phone] OZIEL PICHARDO Attending Clinician Unavailable CHASTITY LONGORIA Admitting Clinician Unavailable [email or web address]_S Admitting Clinician UnavailVIVIENNE Lewis Admitting Clinician Unavailable Vivienne Caballero MD Admitting Clinician [phone] Physician, No Primary or Family Admitting Clinic marcellus Unavailable Payers Payer Name Policy Type Policy Number Effective Date Expirati on Date Source [place] [employer] [id number] 2024 00:00:00 HIM BCBS BLUE ADVANTAGE O [id number] 2022 00:00:00 2024 00:00:00 Blue Cross Blue Shield O 6 [id number] [facility] [id number] 2021 00:00:00 Problems Condition Name Condition Details Condition Category Status Onset Date Resolution Date Last Treatment Date Treating Clinician Comments Source Pre-existi ng essential hypertensi on during , antepartum Pre-existi ng essential hypertensi on during , antepartum Disease Active 1-13 00:00: 00 [facility] Obesity (BMI 30-39.9) Obesity (BMI 30-39.9) Disease Active 6-09 00:00: 00 [facility] Essential hypertensi on, benign Essential hypertensi on, benign Disease Active 2-19 00:00: 00 [facility] BMI 35.0-35.9, adult BMI 35.0-35.9, adult Disease Active 2021-07 1-11 00:00: 00 [facility] 25 weeks gestation of 25 weeks gestation of Disease Active 2021-07 0-19 00:00: 00 [facility] Nausea and vomiting in Nausea and vomiting in Disease Active 5- 00:00: 00 [facility] Atrial tachycardi a Atrial tachycardi a Disease Active 5 00:00: 00 [facility] [id number] Body mass index [BMI] 45.0-49.9, adult Problem Common [facility] [id number] Essential hypertensi on Problem [facility] Paroxysmal atrial fibrillati on Paroxysmal atrial fibrillati on Disease Active [facility] Encounter for routine follow-up Encounter for routine follow-up Disease Resolve d 1- 00:00: 00 2022-09-10 00:00:00 2022-09-10 12:05:29 [facility] Liveborn , of [place] , born in hospital by vaginal delivery Liveborn infant, of [place] , born in hospital by vaginal delivery Disease Resolve d 1-26 00:00: 00 2022-08-21 00:00:00 2022-08-21 10:42:03 [facility] Supervisio n of high risk in second trimester Supervisio n of high risk in second trimester Disease Resolve d 2021-07 0-19 00:00: 00 2022-08-21 00:00:00 2022-08-21 10:42:03 [facility] 39 weeks gestation of 39 weeks gestation of Disease Resolve d 2021-07 0-19 00:00: 00 2022-08-21 00:00:00 2022-08-21 10:42:03 [facility] Obesity in Obesity in Disease Resolve d 6-17 00:00: 00 2022-08-21 00:00:00 2022-08-21 10:42:03 [facility] Nausea/vom iting in Nausea/vom iting in Disease Active 11-29 00:00: 00 2022-04-24 00:00:00 2022-04-24 18:11:37 [facility] Allergies, Adverse Reactions, Alerts Allergy Name Allergy Type Status Severity Reaction(s) Onset Date Inactive Date Treating Clinician Comments Source codeine DA Active MO N/V/ITCHING 2023-07 00:00: 00 [facility] Codeine Propensi ty to adverse reaction s Active Shortness of Breath 11-29 00:00: 00 [facility] CODEINE DRUG INGREDI Active SOB 11-29 00:00: 00 [facility] codeine codeine Active Unknown [facility] Social History Social Habit Start Date Stop Date Quantity Comments Source ASSERTION 2024-06-14 00:00:00 [facility] History of Tobacco Use [facility] Sex Assigned At [facility] Alcoholic beverage intake 2024-08-16 00:00:00 2024-08-16 00:00:00 Ex-drinker (finding) [facility] History of Social function 2024-07-19 00:00:00 2024-07-19 00:00:00 [facility] Exposure to SARS-CoV-2 (event) 2022-12-03 00:00:00 2022-12-13 10:54:00 Not sure [facility] Alcohol intake 2022-09-10 00:00:00 2022-09-10 00:00:00 Ex-drinker (finding) [facility] Tobacco use and exposure 2022-01-21 00:00:00 2022-01-21 00:00:00 Smokeless tobacco non-user [facility] Smoking Status Start Date Stop Date Source Never smoked tobacco [facility] Medications Ordered Medication Name Filled Medication Name Start Date Stop Date Current Medication? Ordering Clinician Indication Dosage Frequency Signature (SIG) Comments Components Source labetaloL 100 mg tablet 08-06 00:00: 00 Yes [id number] 200mg Take 2 tablets by mouth every 12 (twelve) hours. [facility] ondansetron 8 mg disintegrat ing tablet 07-19 00:00: 00 Yes [id number] 8mg Take 1 tablet by mouth every 8 (eight) hours as needed for Nausea and Vomiting (N/V). [facility] ondansetron 8 mg disintegrat ing tablet 07-17 00:00: 00 07-19 00:00 :00 No [facility] Labetalol HCl 100 MG Labetalol HCl 100 MG 03-01 00:00: 00 No 1{table t} BID Labetalol HCl 100 MG norethindro ne 0.35 mg tablet 02-27 00:00: 00 07-19 00:00 :00 No [id number] .35mg Take 1 tablet by mouth in the morning. [facility] methylergon ovine (METHERGINE ) injection 0.2 mg 08-02 02:45: 00 08-02 01:35 :00 No .2mg 0.2 mg, Intramuscu lar, ONCE, 1 dose, On [place] 08/01/22 at 2045, Routine [facility] ibuprofen (IBU) tablet 600 mg 08-02 01:39: 12 Yes 600mg 600 mg, Oral, Q6HPRN, Starting on [place] 08/01/22 at 1939, Until Discontinu ed, Routine, Pain (scale 4-6) [facility] acetaminoph en (TYLENOL) tablet 650 mg 08-02 01:39: 12 Yes 650mg 650 mg, Oral, Q6HPRN, Starting on Fri08/01/22 at 1938, Until Discontinu ed, Routine, Pain (scale 1-3) [facility] diphenhydrA MINE (BENADRYL) tablet 25 mg 08-02 01:39: 12 Yes 25mg 25 mg, Oral, Q6HPRN, Starting on Fri08/01/22 at 1938, Until Discontinu ed, Routine, Sleep, Itching [facility] ondansetron (ZOFRAN (PF)) injection 4 mg 08-02 01:39: 12 Yes 4mg 4 mg, Slow IV Push, Q8HPRN, Starting on Fri08/01/22 at 1938, Until Discontinu ed, Routine, Nausea and Vomiting (N/V) [facility] simethicone (GAS RELIEF (SIMETHICON E)) chewable tablet 160 mg 08-02 01:39: 12 Yes 160mg 160 mg, Oral, PC+HSPRN, Starting on Fri08/01/22 at 1938, Until Discontinu ed, Routine, Gas [facility] docusate (COLACE) capsule 200 mg 08-02 01:39: 12 Yes 200mg 200 mg, Oral, QDAILYPRN, Starting on Fri08/01/22 at 193, Until Discontinu ed, Routine, Constipati on [facility] magnesium hydroxide (MILK OF MAGNESIA) 400 mg/5 mL suspension 30 mL 08-02 01:39: 12 Yes 30mL 30 mL, Oral, QDAILYPRN, Starting on Fri08/01/22 at 1938, Until Discontinu ed, Routine, Constipati on [facility] benzocaine- menthol (DERMOPLAST ) 20-0.5 % topical spray 08-02 01:39: 11 Yes Topical, PRN, Starting on Fri08/01/22 at 1939, Until Discontinu ed, Routine, Perineum discomfort [facility] ibuprofen 600 mg tablet 08-02 00:00: 00 07-19 00:00 :00 No [id number] 102 600mg Take 1 tablet by mouth every 6 (six) hours as needed (Pain). Take with food or milk. [facility] fentaNYL-ro pivacaine 2 mcg/mL-0.1 % (PF) in NS 200 mL epidural infusion RTU 08-01 14:54: 00 08-02 03:10 :57 No Epidural, ONCE INTRA PROCEDURE, Starting on [place] 08/01/22 at 0854, Until [place] 08/01/22 at 2109, Routine, Intra-op [facility] lidocaine-e pinephrine (XYLOCAINE W/EPINEPHRI NE) 1.5 %-1:200,000 injection 08-01 14:46: 00 08-02 03:10 :57 No Intraderma l, ONCE INTRA PROCEDURE, Starting on [place] 08/01/22 at 0846, Until [place] 08/01/22 at 2109, Routine, Intra-op [facility] penicillin g pot in dextrose 3 million [...]
S pecific indication : GBS prophylaxi s [facility] penicillin g potassium 5 Million Units in NaCl 0.9% (NS) 100 mL MINI-BAG 08-01 00:45: 00 08-01 07:17 :00 No 510 5 Million Units, IV Piggyback, ONCE, 1 dose, On Fri07/31/22 at 1845, Administer over 60 Minutes, 100 mL
Reas on for Anti-Infec tive: Empiric Non-Surgic al Prophylaxi s
Durat ion of therapy: 72 hours
S pecific indication : GBS prophylaxi s [facility] misoprostol (CYTOTEC) quarter-tab let 25 mcg 07-31 22:15: 00 07-31 23:17 :00 No 25ug 25 mcg, Oral, ONCE, 1 dose, On Fri07/31/22 at 1615, Routine [facility] FENTanyl PF (SUBLIMAZE (PF)) injection 100 mcg 07-31 22:14: 40 08-02 01:40 :13 No 100ug 100 mcg, Slow IV Push, Q1HPRN, Starting on Fri07/31/22 at 1614, Until [place] 08/01/22 at 1940, Routine, Pain (scale 4-6), Pain (scale 7-10) [facility] misoprostol (CYTOTEC) quarter-tab let 25 mcg 07-31 22:12: 00 08-02 01:40 :13 No 25ug 25 mcg, Vaginal, Q4HPRN, 4 doses, Starting on Fri07/31/22 at 1612, Until [place] 08/01/22 at 1940, Routine, Cervical rippening [facility] oxytocin (PITOCIN) 30 units in NS 500 mL IV infusion 07-31 22:12: 00 08-02 01:40 :13 No 2mU/min at 2-40 mL/hr, IV Infusion, TITRATE, Starting on Fri07/31/22 at 1612, Until [place] 08/01/22 at 1940, Routine [facility] lactated ringers IV infusion 500 mL 07-31 22:12: 00 08-02 01:40 :13 No 500mL at 999 mL/hr, 500 mL, IV Infusion, PRN - SEE INSTRUCTIO NS, Starting on Fri07/31/22 at 1612, Until [place] 08/01/22 at 1940, Routine [facility] D5W-LR IV infusion 1,000 mL 07-31 22:12: 00 08-02 01:40 :13 No 1000mL at 1-125 mL/hr, IV Infusion, TITRATE, Starting on Fri07/31/22 at 1612, Until [place] 08/01/22 at 1940, Routine [facility] sodium citrate-cit roxana acid (BICITRA) 500-334 mg/5 mL solution 30 mL 07-31 22:12: 00 08-01 13:59 :00 No 30mL 30 mL, Oral, PRE-PROCED URE ONCE, 1 dose, Starting on Fri07/31/22 at 1612, Until Discontinu ed, Routine, Surgery/Pr ocedure [facility] aspirin 81 mg EC tablet 02-21 00:00: 00 Yes [id number] 81mg Take 1 tablet by mouth in the morning. [facility] ondansetron 4 mg disintegrat ing tablet 02-03 00:00: 00 02-21 00:00 :00 No [id number] 4mg Take 1 tablet by mouth every 8 (eight) hours as needed for Nausea and Vomiting (N/V). [facility] ondansetron 4 mg disintegrat ing tablet 01-08 00:00: 00 01-27 00:00 :00 No [id number] 4mg Take 1 tablet by mouth every 8 (eight) hours as needed for Nausea and Vomiting (N/V). [facility] azithromyci n 500 mg tablet 11-30 00:00: 00 12-01 04:59 :00 No [id number] 4102 1000mg Take 2 tablets by mouth once now for 1 dose. [facility] vit 33-iron-fol ic-dha (SELECT-OB + DHA) 29 mg iron-1 mg -250 mg combo pack 11-29 00:00: 00 Yes [id number] 1{packe t} Take 1 Packet by mouth daily. [facility] vit 33-iron-fol ic-dha (SELECT-OB + DHA) 29 mg iron-1 mg -250 mg combo pack 11-29 00:00: 00 Yes [id number] 1{packe t} Take 1 Packet by mouth daily. [facility] pyridoxine, VITAMIN B-6, 25 mg tablet 11-29 00:00: 00 01-25 00:00 :00 No [id number] 25mg Take 1 tablet by mouth 3 (three) times daily. [facility] doxylamine 25 mg tablet - 00:00: 00 01-25 00:00 :00 No [id number] 25mg Take 1 tablet by mouth at bedtime. [facility] labetaloL 100 mg tablet 4-19 00:00: 00 08-06 00:00 :00 No [facility] Immunizations Ordered Immunization Name Filled Immunization Name Date Status Comments Source TDAP 2022-05-17 00:00:00 Completed [facility] TDAP 2022-05-17 00:00:00 Completed [facility] TDAP 2022-05-17 00:00:00 Completed [facility] TDAP 2022-05-17 00:00:00 Completed [facility] TDAP 2022-05-17 00:00:00 Completed [facility] TDAP 2022-05-17 00:00:00 Completed [facility] TDAP 2022-05-17 00:00:00 Completed [facility] TDAP 2022-05-17 00:00:00 Completed [facility] TDAP 2022-05-17 00:00:00 Completed [facility] TDAP 2022-05-17 00:00:00 Completed [facility] TDAP 2022-05-17 00:00:00 Completed [facility] TDAP 2022-05-17 00:00:00 Completed [facility] TDAP 2022-05-17 00:00:00 Completed [facility] TDAP 2022-05-17 00:00:00 Completed [facility] TDAP 2022-05-17 00:00:00 Completed [facility] TDAP 2022-05-17 00:00:00 Completed [facility] TDAP 2022-05-17 00:00:00 Completed [facility] TDAP 2022-05-17 00:00:00 Completed [facility] TDAP 2022-05-17 00:00:00 Completed [facility] TDAP 2022-05-17 00:00:00 Completed [facility] TDAP 2022-05-17 00:00:00 Completed [facility] TDAP 2022-05-17 00:00:00 Completed [facility] TDAP 2022-05-17 00:00:00 Completed [facility] TDAP 2022-05-17 00:00:00 Completed [facility] TDAP 2022-05-17 00:00:00 Completed [facility] TDAP 2022-05-17 00:00:00 Completed [facility] SARS-COV-2 COVID-19 VACCINE - (MODERNA) 2022-01-29 00:00:00 [...] 2016-04-08 00:00:00 Completed TDAP 2013-02-22 00:00:00 Completed [facility] Meningococcal Polysaccharide (groups A, C, Y and [...] (IIV3) - SDS - 0.5mL Unknown Completed [facility] Vital Signs Vital Name Observation Time Observation Value Comments S ource Systolic blood pressure 2024-08-16 19:10:00 121 mm[Hg] [facility] Diastolic blood pressure 2024-08-16 19:10:00 77 mm[Hg] [facility] Heart rate 2024-08-16 19:10:00 84 /min [facility] Body temperature 2024-08-16 19:10:00 36.89 [facility] Respiratory rate 2024-08-16 19:10:00 18 /min [facility] Body height 2024-08-16 19:10:00 165.1 cm [facility] Body weight 2024-08-16 19:10:00 123.378 kg Univ [facility] BMI 2024-08-16 19:10:00 45.26 kg/m2 [facility] Systolic blood pressure 2024-08-06 16:42:00 130 mm[Hg] [facility] Diastolic blood pressure 2024-08-06 16:42:00 84 mm[Hg] [facility] Heart rate 2024-08-06 16:42:00 80 /min [facility] Respiratory rate 2024-08-06 16:42:00 18 /min [facility] Body height 2024-08-06 16:42:00 165.1 cm Univ [facility] Body weight 2024-08-06 16:42:00 121.564 kg [facility] BMI 2024-08-06 16:42:00 44.60 kg/m2 Univ [facility] Systolic blood pressure 2024-07-19 16:02:00 123 mm[Hg] [facility] Diastolic blood pressure 2024-07-19 16:02:00 69 mm[Hg] [facility] Heart rate 2024-07-19 16:02:00 92 /min Un[facility] Body temperature 2024-07-19 16:02:00 36.67 [facility] [facility] Respiratory rate 2024-07-19 16:02:00 18 /min [facility] Body height 2024-07-19 16:02:00 165.1 cm Univ [facility] Body weight 2024-07-19 16:02:00 123.378 kg [facility] BMI 2024-07-19 16:02:00 45.26 kg/m2 [facility] height 2024-04-01 13:20:00 64 [in_i] Commo n [facility] weight 2024-04-01 13:20:00 278.8 [lb_av] Co [facility] temperature 2024-04-01 13:20:00 97.4 [degF] Com [facility] bmi 2024-04-01 13:20:00 47.85 kg/m2 Comm on [facility] oximetry 2024-04-01 13:20:00 97 % Commo n [facility] blood pressure systolic 2024-04-01 13:20:00 131 mm[Hg] Common [facility] blood pressure diastolic 2024-04-01 13:20:00 68 mm[Hg] Common [facility] height 2024-03-01 15:00:00 64 [in_i] Commo n [facility] weight 2024-03-01 15:00:00 279.2 [lb_av] Co [facility] temperature 2024-03-01 15:00:00 98.1 [degF] Com [facility] bmi 2024-03-01 15:00:00 47.92 kg/m2 Comm on [facility] oximetry 2024-03-01 15:00:00 99 % Commo n [facility] blood pressure systolic 2024-03-01 15:00:00 156 mm[Hg] Common [facility] blood pressure diastolic 2024-03-01 15:00:00 88 mm[Hg] [facility] Systolic blood pressure 2023-02-27 21:04:00 114 mm[Hg] [facility] Diastolic blood pressure 2023-02-27 21:04:00 73 mm[Hg] [facility] Heart rate 2023-02-27 21:04:00 89 /min [facility] Body temperature 2023-02-27 21:04:00 36.78 [facility] Body height 2023-02-27 21:04:00 165.1 cm [facility] Body weight 2023-02-27 21:04:00 65.772 kg Univ [facility] BMI 2023-02-27 21:04:00 24.13 kg/m2 Univ [facility] Systolic blood pressure 2022-12-13 16:40:00 138 mm[Hg] [facility] Diastolic blood pressure 2022-12-13 16:40:00 88 mm[Hg] [facility] Heart rate 2022-12-13 16:40:00 76 /min [facility] Body temperature 2022-12-13 16:40:00 36.72 [facility] Respiratory rate 2022-12-13 16:40:00 18 /min [facility] Body height 2022-12-13 16:40:00 165.1 cm Univ [facility] Body weight 2022-12-13 16:40:00 107.23 kg Univ [facility] BMI 2022-12-13 16:40:00 39.34 kg/m2 [facility] Systolic blood pressure 2022-09-10 17:10:00 121 mm[Hg] [facility] Diastolic blood pressure 2022-09-10 17:10:00 80 mm[Hg] [facility] Heart rate 2022-09-10 17:10:00 83 /min [facility] Body temperature 2022-09-10 17:10:00 36.83 [facility] [facility] Respiratory rate 2022-09-10 17:10:00 17 /min [facility] Body height 2022-09-10 17:10:00 165.1 cm [facility] Body weight 2022-09-10 17:10:00 99.338 kg [facility] BMI 2022-09-10 17:10:00 36.44 kg/m2 Univ [facility] Systolic blood pressure 2022-08-21 16:41:00 116 mm[Hg] [facility] Diastolic blood pressure 2022-08-21 16:41:00 79 mm[Hg] [facility] Heart rate 2022-08-21 16:41:00 88 /min Un[facility] Body temperature 2022-08-21 16:41:00 36.72 [facility] [facility] Respiratory rate 2022-08-21 16:41:00 17 /min [facility] Body height 2022-08-21 16:41:00 165.1 cm Univ [facility] Body weight 2022-08-21 16:41:00 97.977 kg [facility] BMI 2022-08-21 16:41:00 35.94 kg/m2 Univ [facility] Systolic blood pressure 2022-08-06 15:53:00 132 mm[Hg] [facility] Diastolic blood pressure 2022-08-06 15:53:00 88 mm[Hg] [facility] Heart rate 2022-08-06 15:53:00 96 /min Un[facility] Body temperature 2022-08-06 15:53:00 36.72 [facility] [facility] Respiratory rate 2022-08-06 15:53:00 18 /min [facility] Body height 2022-08-06 15:53:00 165.1 cm Univ [facility] Body weight 2022-08-06 15:53:00 102.83 kg [facility] BMI 2022-08-06 15:53:00 37.72 kg/m2 [facility] Systolic blood pressure 2022-08-03 02:00:00 135 mm[Hg] [facility] Diastolic blood pressure 2022-08-03 02:00:00 86 mm[Hg] [facility] Heart rate 2022-08-03 02:00:00 74 /min Un[facility] Body temperature 2022-08-03 02:00:00 36.22 [facility] Respiratory rate 2022-08-03 02:00:00 18 /min [facility] Oxygen saturation in Arterial blood by Pulse oximetry 2022-08-03 02:00:00 100 /min [facility] Body height 2022-07-31 22:01:00 165.1 cm [facility] Body weight 2022-07-31 22:01:00 109.77 kg [facility] BMI 2022-07-31 22:01:00 40.27 kg/m2 [facility] Systolic blood pressure 2022-07-30 14:52:00 125 mm[Hg] [facility] Diastolic blood pressure 2022-07-30 14:52:00 89 mm[Hg] [facility] Heart rate 2022-07-30 14:52:00 80 /min [facility] Body temperature 2022-07-30 14:52:00 36.89 [facility] Respiratory rate 2022-07-30 14:52:00 18 /min [facility] Body height 2022-07-30 14:52:00 165.1 cm [facility] Body weight 2022-07-30 14:52:00 110.859 kg [facility] BMI 2022-07-30 14:52:00 40.67 kg/m2 [facility] Systolic blood pressure 2022-07-23 14:15:00 134 mm[Hg] [facility] Diastolic blood pressure 2022-07-23 14:15:00 88 mm[Hg] [facility] Heart rate 2022-07-23 14:15:00 80 /min [facility] Body temperature 2022-07-23 14:15:00 36.83 [facility] Respiratory rate 2022-07-23 14:15:00 16 /min [facility] Body height 2022-07-23 14:15:00 165.1 cm [facility] Body weight 2022-07-23 14:15:00 109.907 kg [facility] BMI 2022-07-23 14:15:00 40.32 kg/m2 [facility] Oxygen saturation in Arterial blood by Pulse oximetry 2022-07-23 14:15:00 98 /min [facility] Systolic blood pressure 2022-07-17 15:07:00 128 mm[Hg] [facility] Diastolic blood pressure 2022-07-17 15:07:00 85 mm[Hg] [facility] Heart rate 2022-07-17 15:07:00 88 /min Unive [facility] Body temperature 2022-07-17 15:07:00 36.89 [facility] Respiratory rate 2022-07-17 15:07:00 18 /min [facility] Body height 2022-07-17 15:07:00 165.1 cm Univ [facility] Body weight 2022-07-17 15:07:00 109.77 kg [facility] BMI 2022-07-17 15:07:00 40.27 kg/m2 [facility] Systolic blood pressure 2022-07-10 22:34:00 124 mm[Hg] [facility] Diastolic blood pressure 2022-07-10 22:34:00 82 mm[Hg] [facility] Heart rate 2022-07-10 22:34:00 103 /min Unive [facility] Body height 2022-07-10 22:34:00 165.1 cm [facility] Body weight 2022-07-10 22:34:00 107.956 kg [facility] BMI 2022-07-10 22:34:00 39.61 kg/m2 [facility] Oxygen saturation in Arterial blood by Pulse oximetry 2022-07-10 22:34:00 98 /min [facility] Systolic blood pressure 2022-07-03 21:22:00 131 mm[Hg] [facility] Diastolic blood pressure 2022-07-03 21:22:00 88 mm[Hg] [facility] Heart rate 2022-07-03 21:22:00 85 /min Unive [facility] Body temperature 2022-07-03 21:22:00 37.11 [facility] Respiratory rate 2022-07-03 21:22:00 16 /min [facility] Body height 2022-07-03 21:22:00 165.1 cm Univ [facility] Body weight 2022-07-03 21:22:00 107.684 kg [facility] BMI 2022-07-03 21:22:00 39.51 kg/m2 [facility] Oxygen saturation in Arterial blood by Pulse oximetry 2022-07-03 21:22:00 100 /min [facility] Systolic blood pressure 2022-06-19 22:11:00 129 mm[Hg] [facility] Diastolic blood pressure 2022-06-19 22:11:00 86 mm[Hg] [facility] Heart rate 2022-06-19 22:11:00 82 /min Unive [facility] Body temperature 2022-06-19 22:11:00 36.72 [facility] Respiratory rate 2022-06-19 22:11:00 16 /min [facility] Body height 2022-06-19 22:11:00 165.1 cm Univ [facility] Body weight 2022-06-19 22:11:00 107.276 kg [facility] BMI 2022-06-19 22:11:00 39.36 kg/m2 [facility] Oxygen saturation in Arterial blood by Pulse oximetry 2022-06-19 22:11:00 98 /min [facility] Systolic blood pressure 2022-06-05 22:51:00 122 mm[Hg] [facility] Diastolic blood pressure 2022-06-05 22:51:00 82 mm[Hg] [facility] Heart rate 2022-06-05 22:51:00 81 /min Unive [facility] Body temperature 2022-06-05 22:51:00 36.94 [facility] Respiratory rate 2022-06-05 22:51:00 18 /min [facility] Body height 2022-06-05 22:51:00 165.1 cm [facility] 2022-06-05 22:51:00 109.77 kg [facility] BMI 2022-06-05 22:51:00 40.27 kg/m2 [facility] Systolic blood pressure 2022-05-17 15:59:00 129 mm[Hg] [facility] Diastolic blood pressure 2022-05-17 15:59:00 85 mm[Hg] [facility] Heart rate 2022-05-17 15:59:00 84 /min Unive [facility] Body temperature 2022-05-17 15:59:00 36.89 [facility] Body height 2022-05-17 15:59:00 165.1 cm Univ [facility] Body weight 2022-05-17 15:59:00 106.777 kg [facility] BMI 2022-05-17 15:59:00 39.17 kg/m2 [facility] Systolic blood pressure 2022-04-24 21:02:00 121 mm[Hg] [facility] Diastolic blood pressure 2022-04-24 21:02:00 80 mm[Hg] [facility] Heart rate 2022-04-24 21:02:00 89 /min Unive [facility] Body temperature 2022-04-24 21:02:00 37 [facility] Respiratory rate 2022-04-24 21:02:00 16 /min [facility] Body height 2022-04-24 21:02:00 165.1 cm [facility] Body weight 2022-04-24 21:02:00 105.189 kg [facility] BMI 2022-04-24 21:02:00 38.59 kg/m2 [facility] Oxygen saturation in Arterial blood by Pulse oximetry 2022-04-24 21:02:00 98 /min [facility] Systolic blood pressure 2022-03-21 21:42:00 124 mm[Hg] [facility] Diastolic blood pressure 2022-03-21 21:42:00 86 mm[Hg] [facility] Heart rate 2022-03-21 21:42:00 89 /min Unive [facility] Body temperature 2022-03-21 21:42:00 36.72 [facility] Respiratory rate 2022-03-21 21:42:00 16 /min [facility] Body height 2022-03-21 21:42:00 165.1 cm [facility] Body weight 2022-03-21 21:42:00 106.142 kg [facility] BMI 2022-03-21 21:42:00 38.94 kg/m2 [facility] Oxygen saturation in Arterial blood by Pulse oximetry 2022-03-21 21:42:00 99 /min [place] [facility] Procedures Procedure Date / Time Performed Performing Clinician Source SCANNED LAB RESULTS 2024-08-31 19:00:14 Doctor Aretha zavala, [place] [facility] POCT URINALYSIS W/O SPECIFIC GRAVITY 2024-08-16 00:00:00 Dori [facility] AIRCRAFT INSTRUMENT REPAIRER CLINIC ULTRASOUND 2024-08-09 15:28:23 Doc ana luisa Unassigned, [place] [facility] US OB TRANSVAGINAL 2024-07-19 16:30:28 Venita Meadowskimberly [facility] POCT TEST 2024-07-19 00:00:00 Dori Harini [facility] POCT URINALYSIS W/O SPECIFIC GRAVITY 2024-07-19 00:00:00 Dori Harini [facility] CONSENT FOR CONTRACEPTION 2023-02-27 05:01:00 Doctor Unassigned, [place] [facility] POCT TEST 2023-02-27 00:00:00 Adum, Vivienne Johnson [facility] POCT TEST 2022-12-13 00:00:00 Adum, Vivienne Johnson [facility] DIABETES TESTING REPORTS 2022-08-20 06:01:00 Doc ana luisa Unassigned, [place] [facility] CBC WITH DIFF 2022-08-02 10:45:00 AdumVivienne [facility] CENTRAL NEURAXIAL BLOCK 2022-08-01 14:30:00 Wilian Francois [facility] CBC WITH DIFF 2022-07-31 22:47:00 Adum, Vivienne L [facility] HEPATITIS B SURFACE ANTIGEN 2022-07-31 22:47:00 Adum, Vivienne Johnson [facility] ADC OR MARIALUISA ONLY - RPR 2022-07-31 22:47:00 Adum, Vivienne Johnson [facility] HIV 1/2 AG-AB WITH REFLEX 2022-07-31 22:47:00 Adum, Vivienne Johnson [facility] HB ABO GROUPING 2022-07-31 22:20:00 Adum, Vivienne Lopez [facility] ADMISSION 2022-07-31 06:01:00 Doctor Un assigned, [place] [facility] POCT URINALYSIS W/O SPECIFIC GRAVITY 2022-07-30 00:00:00 Adum, Vivienne Johnson [facility] CONSENT/REFUSAL FOR DIAGNOSIS AND TREATMENT 2022-07-23 20:37:10 Doctor Unassigned, [place] [facility] ASSIGNMENT OF BENEFITS 2022-07-23 20:36:42 Docto r Unassigned, [place] [facility] POCT URINALYSIS W/O SPECIFIC GRAVITY 2022-07-23 00:00:00 Adum, Vivienne Johnson [facility] POCT URINALYSIS W/O SPECIFIC GRAVITY 2022-07-17 00:00:00 Adum, Vivienne Johnson [facility] POCT URINALYSIS 2022-07-10 22:45:00 Adum, Vivienne Johnson [facility] DSU PRE-OP 2022-07-10 06:01:00 Doctor Unass igned, [place] [facility] POCT URINALYSIS W/O SPECIFIC GRAVITY 2022-07-03 00:00:00 Adum, Vivienne oJhnson [facility] POCT URINALYSIS W/O SPECIFIC GRAVITY 2022-06-19 00:00:00 Adum, Vivienne Johnson [facility] POCT URINALYSIS W/O SPECIFIC GRAVITY 2022-06-05 00:00:00 Adum, Vivienne Johnson [facility] TDAP VACCINE, >11 YRS, IM 2022-05-17 16:01:33 Adum, Vivienne Johnson [facility] POCT URINALYSIS W/O SPECIFIC GRAVITY 2022-05-17 00:00:00 Adryna Vivienne Johnson [facility] POCT URINALYSIS W/O SPECIFIC GRAVITY 2022-04-24 00:00:00 Adryan, Vivienne Johnson [facility] POCT URINALYSIS W/O SPECIFIC GRAVITY 2022-03-21 00:00:00 Yovani Velasquez [facility] Encounters Start Date/Time End Date/Time Encounter Type Admission Type Attending [facility] Facility Care Department Encounter ID Source 2024-07-05 15:51:00 Outpatient Chastity Longoria [facility] [id number] [facility] 2024-07-01 10:37:00 Outpatient Chastity Longoria [facility] [id number] [facility] 2024-05-31 13:00:00 Inpatient Pepper Meade [facility] OUTD [id number] 2024-03-30 11:17:00 Outpatient Chastity Longoria [facility] [id number] [facility] 2024-03-01 14:54:02 Outpatient Chastity Longoria [facility] [id number] [facility] 2024-10-20 10:30:00 2024-10-20 10:30:00 Outpatient P [facility] [id number] [facility] 2024-10-11 08:15:00 2024-10-11 08:15:00 Outpatient R DEAN-TRINI S, HARINI DEAN-TRINI S, HARINI [facility] [id number] [facility] 2024-09-13 13:00:00 2024-09-13 13:31:38 Outpatient R DEAN-TRINI S, HARINI DEAN-TRINI S, HARINI [facility] [id number] [facility] 2024-08-31 00:00:00 2024-09-02 02:05:01 Orders Only Doctor Unassigned, [place] Doctor Unassigned, [place] [facility] 1.2840.114 350.1.13.10 4.2.7.2.686 [id number] [facility] 2024-08-23 00:00:00 2024-08-23 11:57:44 Telephone Dean-Trini s, Harini [facility] 1.2840.114 350.1.13.10 4.2.7.2.686 [id number] [facility] 2024-08-09 00:00:00 2024-08-21 06:11:25 Orders Only Doctor Unassigned, [place] Doctor Unassigned, [place] [facility] 1.284.114 350.1.13.10 4.2.7.2.686 [id number] [facility] 2024-08-16 14:30:00 2024-08-16 14:45:00 Perl Developer Visit 2, Adc Lab Dean-Trini s, Harini 2, Adc Lab [facility] 1.284.114 350.1.13.10 4.2.7.2.686 [id number] [facility] 2024-08-16 14:30:00 2024-08-16 14:30:00 Outpatient R DEAN-TRINI S, HARINI DEAN-TRINI S, HARINI [facility] [id number] [facility] 2024-08-16 13:00:00 2024-08-16 14:20:46 Routine Visit Dean-Trini s, Harini [facility] 1.284.114 350.1.13.10 4.2.7.2.686 [id number] [facility] 2024-08-06 10:30:00 2024-08-06 10:42:48 Outpatient R DEAN-TRINI S, HARINI DEAN-TRINI S, HARINI [facility] [id number] [facility] 2024-08-06 10:30:00 2024-08-06 10:42:48 Nurse Visit Nurse, [facility] Dean[facility]Trini s, [facility]ini [facility] 1.2.840.114 350.1.13.10 4.2.7.2.686 [id number] [facility] 2024-07-29 00:00:00 2024-07-30 14:46:06 Telephone Dean-Trini s, Harini [facility] 1.2.840.114 350.1.13.10 4.2.7.2.686 [id number] [facility] 2024-07-21 10:45:00 2024-07-21 13:10:55 Outpatient R DEAN-TRINI S, HARINI DEAN-TRINI S, HARINI [facility] [id number] [facility] 2024-07-21 10:45:00 2024-07-21 11:00:00 Perl Developer Visit 2, Adc Lab Dean-Trini s, Harini 2, [facility] 1.2.840.114 350.1.13.10 4.2.7.2.686 [id number] [facility] 2024-07-19 10:30:00 2024-07-19 10:51:36 Perl Developer Visit 2, Adc Lab Dean-Trini s, Harini 2, [facility] 1.2.840.114 350.1.13.10 4.2.7.2.686 [id number] [facility] 2024-07-19 10:00:00 2024-07-19 10:29:45 Outpatient R DEAN-TRINI S, HARINI DEAN-TRINI S, HARINI [facility] [id number] [facility] 2024-07-19 10:00:00 2024-07-19 10:29:45 Initial Visit Danielle Zafarsol [facility] 1.2.840.114 350.1.13.10 4.2.7.2.686 [id number] [facility] 2024-07-16 00:00:00 2024-07-16 10:55:23 [facility] 1.2.840.114 350.1.13.10 4.2.7.2.686 [id number] [facility] 2024-07-13 10:00:00 2024-07-13 10:00:00 Outpatient VIVIENNE GONZÁLES VIVIENNE [facility] [id number] [facility] 2024-06-28 00:00:00 2024-06-28 12:06:46 Telephone Vviienne Caballero [facility] 1.2.840.114 350.1.13.10 4.2.7.2.686 [id number] [facility] 2024-05-31 08:00:00 2024-05-31 08:00:[address] [facility] DAYS [id number] [facility] 2024-04-01 00:00:00 2024-04-01 00:00:00 (WELLNESS) [id number] 2024-03-03 00:00:00 2024-03-03 00:00:00 [facility]EL[facility] [id number] [facility] 2024-03-01 00:00:00 2024-03-01 00:00:00 OFFICE VISIT NEW PT LEVEL 4 [facility] [id number] [facility] 2023-08-29 08:00:00 2023-08-29 08:00:00 Outpatient R ADUM, VIVIENNE [facility] [id number] [facility] 2023-05-04 00:00:00 2023-05-04 00:00:00 Outpatient GC_GCBZW_Ka diyala_S [facility] [id number] [facility] 2023-02-27 15:45:00 2023-02-27 16:25:23 [id number] 2023-02-27 15:45:00 2023-02-27 16:25:23 Office Visit Adum, Vivienne [facility] 1.840.114 350.1.13.10 4.2.7.2.686 [id number] [facility] 2023-02-27 00:00:00 2023-02-27 00:00:00 Orders Only Doctor Unassigned, [place] [facility] 1.84.114 350.1.13.10 4.2.7.2.686 [id number] [facility] 2022-12-13 13:15:00 2022-12-13 13:30:00 Perl Developer Visit Pob, Adc Lab Main Adum, Vivienne [facility] 1.840.114 350.1.13.10 4.2.7.2.686 [id number] [facility] 2022-12-13 11:00:00 2022-12-13 13:23:14 [facility]patient R [facility]UM[facility] [id number] 2022-12-13 11:00:00 2022-12-13 13:23:14 Routine Visit Adum, Vivienne [facility] 1.840.114 350.1.13.10 4.2.7.2.686 [id number] [facility] 2022-09-10 11:15:00 2022-09-10 11:41:36 Outpatient R ADRYAN [facility] [id number] [facility] 2022-09-10 11:15:00 2022-09-10 11:41:36 Routine Visit Adryan [facility] 1.2.840.114 350.1.13.10 4.2.7.2.686 [id number] [facility] 2022-08-21 10:45:00 2022-08-21 10:49:41 Outpatient R DAA [facility] [id number] [facility] 2022-08-21 10:45:00 2022-08-21 10:49:41 Routine Visit Jaclyn Lanza [facility] 1.2.840.114 350.1.13.10 4.2.7.2.686 [id number] [facility] 2022-08-20 00:00:00 2022-08-20 00:00:00 Orders Only Doctor Unassigned, [place] [facility] 1.2.840.114 350.1.13.10 4.2.7.2.686 [id number] [facility] 2022-08-06 10:00:00 2022-08-06 10:15:00 Nurse Visit Nurse, [facility] 1.2.840.114 350.1.13.10 4.2.7.2.686 [id number] [facility] 2022-08-06 10:00:00 2022-08-06 10:00:00 Outpatient R ADRYAN [facility] [id number] [facility] 2022-08-05 00:00:00 2022-08-05 00:00:[address] [facility] 1.2.840.114 350.1.13.10 4.2.7.2.686 [id number] [facility] 2022-07-31 15:37:00 2022-08-02 21:29:00 Inpatient P ADUM, VIVIENNE [facility] [id number] [facility] 2022-07-31 15:37:00 2022-08-02 21:29:00 Hospital Encounter AdVivienne brown [facility] 1.2.840.114 350.1.13.10 4.2.7.2.686 [id number] [facility] 2022-08-01 08:36:00 2022-08-01 21:10:00 Anesthesia Event Wilian Joshi [facility] 1.2.840.114 350.1.13.10 4.2.7.2.686 [id number] [facility] 2022-07-31 00:00:00 2022-07-31 00:00:00 Orders Only Doctor Unassigned, [place] [facility] 1.2.840.114 350.1.13.10 4.2.7.2.686 [id number] [facility] 2022-07-30 09:00:00 2022-07-30 09:13:15 Outpatient R ADRYAN VIVIENNE [facility] [id number] [facility] 2022-07-30 09:00:00 2022-07-30 09:13:15 Routine Visit AdVivienne brown [facility] 1.2.840.114 350.1.13.10 4.2.7.2.686 [id number] [facility] 2022-07-23 08:00:00 2022-07-23 08:42:03 Outpatient R ADUM, [facility] [id number] [facility] 2022-07-23 08:00:00 2022-07-23 08:42:03 Routine Visit Adum, Vivienne [facility] 1.2840.114 350.1.13.10 4.2.7.2.686 [id number] [facility] 2022-07-17 09:00:00 2022-07-17 09:31:34 Outpatient R ADUM, [facility] [id number] [facility] 2022-07-17 09:00:00 2022-07-17 09:31:34 Routine Visit Adum, [facility] 1.2840.114 350.1.13.10 4.2.7.2.686 [id number] [facility] 2022-07-15 14:15:00 2022-07-15 14:27:56 Perl Developer Visit 2, Adc Lab Adryan, [facility] 1.2840.114 350.1.13.10 4.2.7.2.686 [id number] [facility] 2022-07-15 14:15:00 2022-07-15 14:15:00 Outpatient R ADUM, [facility] [id number] [facility] 2022-07-10 16:15:00 2022-07-10 17:17:28 Outpatient R ADUM, [facility] [id number] [facility] 2022-07-10 16:15:00 2022-07-10 17:17:28 Routine Visit Ad, [facility] [place] 1.2840.114 350.1.13.10 4.2.7.2.686 [id number] [facility] 2022-07-10 00:00:00 2022-07-10 00:00:00 Orders Only Doctor Unassigned, [place] [facility] 1.2840.114 350.1.13.10 4.2.7.2.686 [id number] [facility] 2022-07-05 13:30:00 2022-07-05 13:45:00 Perl Developer Visit 2, Adc Lab Adum, Vivienne [facility] 1.2840.114 350.1.13.10 4.2.7.2.686 [id number] [facility] 2022-07-05 13:00:00 2022-07-05 13:30:00 Perl Developer Visit Ultrasound, Jagjit Hammond [facility] AIRCRAFT INSTRUMENT REPAIRER [facility] 1.840.114 350.1.13.10 4.2.7.2.686 [id number] [facility] 2022-07-05 13:00:00 2022-07-05 13:00:00 Outpatient P TANJA JAGJIT [facility] [id number] [facility] 2022-07-03 14:15:00 2022-07-03 15:47:40 Outpatient R ADRYAN [facility] [id number] [facility] 2022-07-03 14:15:00 2022-07-03 15:47:40 Routine Visit AdVivienne brown [facility] 1.840.114 350.1.13.10 4.2.7.2.686 [id number] [facility] 2022-06-25 00:00:00 2022-06-25 00:00:00 Telephone Adum, Vivienne L [facility] 1.2840.114 350.1.13.10 4.2.7.2.686 [id number] [facility] 2022-06-19 16:00:00 2022-06-19 16:39:50 Outpatient R ADUM, VIVIENNE [facility] [id number] [facility] 2022-06-19 16:00:00 2022-06-19 16:39:50 Routine Visit Ad, Vivienne [facility] 1.2840.114 350.1.13.10 4.2.7.2.686 [id number] [facility] 2022-06-05 16:15:00 2022-06-05 17:08:06 Outpatient R ADUM, [facility] [id number] [facility] 2022-06-05 16:15:00 2022-06-05 17:08:06 Routine Visit Ad, [facility] [place] 1.20.114 350.1.13.10 4.2.7.2.686 [id number] [facility] 2022-05-17 09:45:00 2022-05-17 10:31:35 Routine Visit Ad, [facility] 1.2840.114 350.1.13.10 4.2.7.2.686 [id number] [facility] 2022-05-17 08:30:00 2022-05-17 09:20:31 Outpatient R ADUM, VIVIENNE [facility] [id number] [facility] 2022-05-17 08:30:00 2022-05-17 09:20:31 Perl Developer Visit 2, Adc Lab Adryan, [facility] 1.2840.114 350.1.13.10 4.2.7.2.686 [id number] [facility] 2022-05-07 09:00:00 2022-05-07 09:45:00 Perl Developer Visit Ultrasound, Adc m Hariraearlene Renee Nathan [facility] 1.840.114 350.1.13.10 4.2.7.2.686 [id number] [facility] 2022-05-07 09:00:00 2022-05-07 09:00:00 Outpatient P RENEE GOOD [facility] [id number] [facility] 2022-05-02 00:00:00 2022-05-02 00:00:00 Telephone Adum, Vivienne Kimberly [facility] 1.840.114 350.1.13.10 4.2.7.2.686 [id number] [facility] 2022-04-24 15:30:00 2022-04-24 16:36:47 Outpatient R ADA [facility] [id number] [facility] 2022-04-24 15:30:00 2022-04-24 16:36:47 Routine Visit AdDina brwonian Kimberly [facility] 1.840.114 350.1.13.10 4.2.7.2.686 [id number] [facility] 2022-04-04 13:00:00 2022-04-04 14:15:00 Perl Developer Visit Ultrasound, Jagjit Hammond [facility] AIRCRAFT INSTRUMENT REPAIRER [facility] [facility] 1.840.114 350.1.13.10 4.2.7.2.686 [id number] [facility] 2022-04-04 13:00:00 2022-04-04 13:00:00 Outpatient P JAGJIT AGRAWAL [facility] [id number] [facility] 2022-03-28 09:45:00 2022-03-28 09:45:00 Outpatient P [facility] [id number] [facility] 2022-03-21 16:15:00 2022-03-21 17:05:46 Outpatient R YOVANI VELASQUEZ [facility] [id number] [facility] 2022-03-21 16:15:00 2022-03-21 17:05:46 Routine Visit Yovani Velasquez [facility] 1.2840.114 350.1.13.10 4.2.7.2.686 [id number] [facility] 2022-03-08 15:30:00 2022-03-08 15:45:00 Perl Developer Visit 2, Adc Lab Yovani Velasquez [facility] 1.2840.114 350.1.13.10 4.2.7.2.686 [id number] [facility] 2022-03-08 15:30:00 2022-03-08 15:30:00 Outpatient R YOVANI VELASQUEZ [facility] [id number] [facility] 2022-03-06 00:00:00 2022-03-06 00:00:[address] [facility] 1.284.114 350.1.13.10 4.2.7.2.686 [id number] [facility] 2022-02-21 16:15:00 2022-02-21 16:43:07 Outpatient R YOVANI VELASQUEZ [facility] [id number] [facility] 2022-02-21 16:15:00 2022-02-21 16:43:07 Routine Visit Ron Yovani [facility] 1.2840.114 350.1.13.10 4.2.7.2.686 [id number] [facility] 2022-02-18 16:00:00 2022-02-18 16:00:00 Outpatient R YOVANI VELASQUEZ [facility] [id number] [facility] 2022-02-18 16:00:00 2022-02-18 16:00:00 Outpatient R YOVANI VELASQUEZ [facility] [id number] [facility] 2022-02-14 16:15:00 2022-02-14 16:15:00 Outpatient R YOVANI VELASQUEZ [facility] [id number] [facility] 2022-02-07 00:00:00 2022-02-07 00:00:[address] [facility] 1.2.840.114 350.1.13.10 4.2.7.2.686 [id number] [facility] 2022-02-07 00:00:00 2022-02-07 00:00:[address] [facility] 1.2.840.114 350.1.13.10 4.2.7.2.686 [id number] [facility] 2022-02-01 00:00:00 2022-02-01 00:00:00 Nurse Triage Jo-Ann Grady [facility] 1.2.840.114 350.1.13.10 4.2.7.2.686 [id number] [facility] 2022-01-26 00:00:00 2022-01-26 00:00:[address] [facility] 1.2.840.114 350.1.13.10 4.2.7.2.686 [id number] [facility] 2022-01-25 00:00:00 2022-01-25 00:00:[address] [facility] 1.2.840.114 350.1.13.10 4.2.7.2.686 [id number] [facility] 2022-01-23 11:15:00 2022-01-23 11:30:00 Perl Developer Visit 2, Adc Lab Yovani Velasquez [facility] 1.0.114 350.1.13.10 4.2.7.2.686 [id number] [facility] 2022-01-23 11:15:00 2022-01-23 11:15:00 Outpatient R YOVANI VELASQUEZ [facility] [id number] [facility] 2022-01-22 00:00:00 2022-01-22 00:00:00 Refill Ron [facility] 1.0.114 350.1.13.10 4.2.7.2.686 [id number] [facility] 2022-01-21 08:00:00 2022-01-21 08:54:31 Outpatient R RON YOVANI [facility] [id number] [facility] 2022-01-21 08:00:00 2022-01-21 08:54:31 Routine Visit Ron Yovani [facility] 1.20.114 350.1.13.10 4.2.7.2.686 [id number] 134 [id number] [facility] 2022-01-04 00:00:00 2022-01-04 00:00:[address] [facility] 1.2840.114 350.1.13.10 4.2.7.2.686 [id number] [facility] 2021-12-25 08:15:00 2021-12-25 08:30:00 Perl Developer Visit 2, Adc Lab [facility] 1.20.114 350.1.13.10 4.2.7.2.686 [id number] [facility] 2021-12-25 08:15:00 2021-12-25 08:15:00 Outpatient R YOVANI VELASQUEZ [facility] [id number] [facility] 2021-12-23 00:00:00 2021-12-23 00:00:00 Telephone Yovani Velasquez [facility] 1.114 350.1.13.10 4.2.7.2.686 [id number] [facility] 2021-12-21 15:00:00 2021-12-21 15:51:17 Outpatient R YOVANI VELASQUEZ [facility] [id number] [facility] 2021-12-21 15:00:00 2021-12-21 15:51:17 Routine Visit Yovani Velasquez [facility] 1.840.114 350.1.13.10 4.2.7.2.686 [id number] [facility] 2021-12-21 15:00:00 2021-12-21 15:51:17 Outpatient R YOVANI VELASQUEZ [facility] [id number] [facility] 2021-12-21 09:30:00 2021-12-21 10:00:00 Routine Visit Jaclyn Lanza [facility] 1.84.114 350.1.13.10 4.2.7.2.686 [id number] [facility] 2021-12-21 09:30:00 2021-12-21 09:30:00 [facility] [id number] [facility] 2021-12-21 00:00:00 2021-12-21 00:00:[address] [facility] 1.840.114 350.1.13.10 4.2.7.2.686 [id number] [facility] 2021-12-21 00:00:00 2021-12-21 00:00:00 Orders Only Doctor Unassigned, [place] [facility] 1.284.114 350.1.13.10 4.2.7.2.686 [id number] [facility] 2021-12-17 00:00:00 2021-12-17 00:00:[address] [facility] 1.284.114 350.1.13.10 4.2.7.2.686 [id number] [facility] 2021-12-17 00:00:00 2021-12-17 00:00:00 Telephone Ron Yovani [facility] 1.84.114 350.1.13.10 4.2.7.2.686 [id number] [facility] 2021-12-13 08:00:00 2021-12-13 08:36:35 Outpatient R FARHANA VELASQUEZN [facility] [id number] [facility] 2021-12-13 08:00:00 2021-12-13 08:36:35 Routine Visit Ron Yovani [facility] 1.284.114 350.1.13.10 4.2.7.2.686 [id number] [facility] 2021-12-13 08:00:00 2021-12-13 08:00:00 Outpatient R FARHANA VELASQUEZN [facility] [id number] [facility] 2021-12-10 00:00:00 2021-12-10 00:00:[address] [facility] 1..114 350.1.13.10 4.2.7.2.686 [id number] [facility] 2021-12-04 00:00:00 2021-12-04 00:00:00 Patient Secure Mariah Schafer [facility] 1.840.114 350.1.13.10 4.2.7.2.686 [id number] [facility] 2021-11-30 00:00:00 2021-11-30 00:00:00 Case Management Yovani Velasquez [facility] 1.0.114 350.1.13.10 4.2.7.2.686 [id number] [facility] 2021-11-30 00:00:00 2021-11-30 00:00:[address] [facility] 1..114 350.1.13.10 4.2.7.2.686 [id number] [facility] 2021-11-29 08:30:00 2021-11-29 09:22:25 Outpatient R YOVANI VELASQUEZ [facility] [id number] [facility] 2021-11-29 08:30:00 2021-11-29 09:22:25 Outpatient R YOVANI VELASQUEZ [facility] [id number] [facility] 2021-11-29 08:30:00 2021-11-29 09:22:25 Initial Visit Ron Yovani [facility] 1..114 350.1.13.10 4.2.7.2.686 [id number] [facility] 2021-11-29 00:00:00 2021-11-29 00:00:00 Orders Only Doctor Unassigned, [place] [facility] 1.2.114 350.1.13.10 4.2.7.2.686 [id number] [facility] 2021-01-18 12:48:00 2021-01-18 12:48:00 [facility]patient [id number] [address] [place] [address] 2020-03-28 13:39:47 2020-03-28 13:59:47 Laboratory Only Lab, [facility] Pob Oziel Myles [facility] 1.2840.114 350.1.13.10 4.2.7.2.686 [id number] [facility] 2020-03-28 13:39:47 2020-03-28 13:59:47 Laboratory Only Lab, [facility] 1.2840.114 350.1.13.10 4.2.7.2.686 [id number] 2020-03-28 13:40:00 2020-03-28 13:40:00 Outpatient R NICK PICHARDOTHIA [facility] [id number] [facility] 2020-03-28 00:00:00 2020-03-28 00:00:00 Letter (Out) Doctor Unassigned, [place] [facility] 1.2840.114 350.1.13.10 4.2.7.2.686 [id number] [facility] 2020-03-28 00:00:00 2020-03-28 00:00:00 Letter (Out) Doctor Unassigned, [place] [facility] 1.2.840.114 350.1.13.10 4.2.7.2.686 [id number] Results Test Description Test Time Test Comments Results Resul t Comments Source SCANNED LAB RESULTS 2024-08-31 19:00:14 [facility] an unspecified provider[facility] [id number] 15:28:23 Ordered by an unspecified provider.[facility] w/o Specific [id number] 16:09:00* Test Item Value Reference Range Interpretation Comme [...] = 3257) n/a Negative - Negati ve [facility] [id number] 16:09:00* Test Item Value Reference Range Interpretation Comme nts POCT PREG (test code = 1605) Positive On board controls acceptable with C Line (test code = 3574) Yes POCT PREG LOT # (test code = 3575) POCT PREG TEST DATE ( test code = 3576) [facility] [id number] 21:05:00* Test Item Value Reference Range Interpretation Comme nts POCT PREG (test code = 1605) Negative On board controls acceptable with C Line (test code = 3574) Yes POCT PREG LOT # (test code = 3575) POCT PREG TEST DATE ( test code = 3576) [facility] [id number] 21:05:00* Test Item Value Reference Range Interpretation Comme nts POCT PREG (test code = 1605) Negative On board controls acceptable with C Line (test code = 3574) Yes POCT PREG LOT # (test code = 3575) POCT PREG TEST DATE ( test code = 3576) [facility] [id number] 16:52:00* Test Item Value Reference Range Interpretation Comme nts POCT PREG (test code = 1605) Negative On board controls acceptable with C Line (test code = 3574) Yes POCT PREG LOT # (test code = 3575) POCT PREG TEST DATE ( test code = 3576) [facility] with [id number] 11:18:05* Test Item Value Reference Range Interpretation [...] 34.1 g/dL 31.6-35.1 RDW-SD (test code = 82442-4) 42.6 fL 39.0-49.9 RDW-CV (test code = 788-0) 12.3 % 12.0-15.5 PLT (test code = 777-3) See_Comment [Automated message] The system which generated this result transmitted reference range: 166 - 358 10*3/?L. The reference range was not used to interpret this result as normal/abnormal. MPV (test code = 88929-4) 9.7 fL 9.5-12.9 NRBC/100 WBC (test code = 4285391772) See_Comment [Automated message] The system which generated this result transmitted reference range: 0.0 - 10.0 /100 WBCs. The reference range was not used to interpret this result as normal/abnormal. NRBC x10^3 (test code = 1034552837) See_Comment [Automated message] The system which generated this result transmitted reference range: 10*3/?L. The reference range was not used to interpret this result as normal/abnormal. GRAN MAT (NEUT) % (test code = 770-8) 79.9 % IMM GRAN % (test code = 6039797702) 0.60 % LYMPH % (test code = 736-9) 10.2 % MONO % (test code = 5905-5) 8.9 % EOS % (test code = 713-8) 0.1 % BASO % (test code = 706-2) 0.3 % GRAN MAT x10^3(ANC) (test code = 2323308606) 12.60 10*3/uL 1.88-7.09 H IMM GRAN x10^3 (test code = 6325098604) 0.09 10*3/uL 0.00-0.06 H LYMPH x10^3 (test code = 731-0) 1.61 10*3/uL 1.32-3.29 MONO x10^3 (test code = 742-7) 1.41 10*3/uL 0.33-0.92 H EOS x10^3 (test code = 711-2) 0.03-0.39 L BASO x10^3 (test code = 704-7) 0.04 10*3/uL 0.01-0.07 Lab Interpretation (test code = 76334-0) Abnormal [facility] - ONCE [id number] 00:12:19 * Test Item Value Reference Range Interpretation Comme nts ABO & RH (test code = 20) A Positive Performed at [facility] Blood [address] [place] [address] Free: [phone] No. [id number] IAT (test code = 1185) Negative Performed at [facility] Blood [place] [address]Toll Free: [phone] No. [id number] [facility] URINALYSIS W/O SPECIFIC [id number] 14:49:00* Test Item Value Reference Range Interpretation [...] = 3257) n/a Negative - Negati ve [facility] W/O SPECIFIC [id number] 14:22:00* Test Item Value Reference Range Interpretation [...] = 3257) n/a Negative - Negati ve [facility] URINALYSIS W/O SPECIFIC [id number] 15:08:00* Test Item Value Reference Range Interpretation [...] = 3257) N/A Negative - Negati ve [facility] URINALYSIS W SPECIFIC [id number] 22:45:00* Test Item Value Reference Range Interpretation [...] U APPEAR (test code = 3267) clear [facility] URINALYSIS W/O SPECIFIC [id number] 21:32:00* Test Item Value Reference Range Interpretation [...] = 3257) n/a Negative - Negati ve [facility] URINALYSIS W/O SPECIFIC [id number] 22:16:00* Test Item Value Reference Range Interpretation [...] = 3257) n/a Negative - Negati ve [facility] URINALYSIS W/O SPECIFIC [id number] 22:55:00* Test Item Value Reference Range Interpretation [...] = 3257) N/A Negative - Negati ve [facility] URINALYSIS W/O SPECIFIC [id number] 15:58:00* Test Item Value Reference Range Interpretation [...] = 3257) n/a Negative - Negati ve [facility] URINALYSIS W/O SPECIFIC [id number] 21:06:00* Test Item Value Reference Range Interpretation [...] = 3257) n/a Negative - Negati ve [facility] URINALYSIS W/O SPECIFIC [id number] 21:51:00* Test Item Value Reference Range Interpretation [...] = 3257) n/a Negative - Negati ve [facility] Notes Date/Time Note Provider Source 2024-08-23 11:56:48 Received Panorama results via fax. Stamped and will be scanned/uploaded into pt's chart. Pt viewed Rupal results via website. JAELYN PIMENTEL RN 08/23/2024 11:57 AM WINDING OPERATOR Jaelyn Pimentel RN [facility] 2024-08-16 14:30:00 Pt was only doing Rupal Kit drawing. Was completed and sent. ERY Briggs [facility] 2024-08-16 13:00:00 Age: [age] year old GA: 11w0d ASSESSMENT: Melany Corrigan is a 24 year old at 11w0d who presents for routine visit. Patient Active Problem List Diagnosis Nausea/vomiting in Atrial tachycardia BMI 35.0-35.9,adult Essential hypertension, benign Paroxysmal atrial fibrillation Obesity (BMI 30-39.9) Pre-existing essential hypertension during , antepartum PLAN 1. High-risk in first trimester --Blood type A +/Rubella Immune 2. Pre-existing essential hypertension during , antepartum --reviewed BP log, improved with medication --continue with Labetalol 200 mg BID --24 hr urine protein: 135 --Start Low dose Aspirin at 12 weeks 3. 11 weeks gestation of - POCT Urinalysis w/o Specific Hornick Harini Meadows MD WINDING OPERATOR [facility] 2024-07-30 14:43:48 Name and verified. Better today. Has been able to hold fluids and eat crackers. Denies dizziness, increase HR, fatigue, or dark colored urine. ER precautions given. Verbalized understanding. JAELYN PIMENTEL RN 07/30/2024 2:45 PM WINDING OPERATOR Jaelyn Pimentel RN [facility] 2024-07-29 15:02:20 Melany Corrigan is a 24 year old female Patient states Aspen is not helping, she is unable keep anything down. WINDING OPERATOR Trupti Colon [facility] 2024-07-21 10:45:00 Patient presented with specimen for drop-off and was identified by . Collection information/ total volume were documented accordingly. The following specimens were sent to [facility] laboratories per lab order on 07/21/2024 : 24 hour urine 1 Random urine Stool Swab Other Loaded pt w 50gm lemon win[place] glucola, no issues. Draw time: 1143 [facility] 2024-07-21 10:45:00 Images from the original note were not included. Patient has been identified by and was provided with cup, antiseptic towelette, and clean catch instructions. 1 urine specimen(s) sent. Unpreserved Urine Culture 1 Aptima tube Other urine [facility] 2024-07-21 10:45:00 Images from the original note were not included. Venipuncture collection performed by clean technique on the left anticubitus. Total of 1 attempts were made. Slight pressure and a bandage/dressing were applied to the site(s). The patient experienced no complications. The following specimens were processed according to instructions and sent to [facility] laboratories per lab order on 07/21/2024 : LT BLUE SST 1 RED LAV PPT DK GREEN (LiHep) DK GREEN (SodH) PANDA DK BLUE (K2) DK BLUE (S) ACD Blood Culture NIPT/NTD [facility] 2024-07-19 10:30:00 Images from the original note were not included. Venipuncture collection performed by clean technique on the left anticubitus. Total of 1 attempts were made. Slight pressure and a bandage/dressing were applied to the site(s). The patient experienced no complications. The following specimens were processed according to instructions and sent to [facility] laboratories per lab order on 07/19/2024 : LT BLUE SST 3 RED 1 LAV 2 PPT DK GREEN (LiHep) DK GREEN (SodH) PANDA DK BLUE (K2) DK BLUE (S) ACD Blood Culture NIPT/NTD Pt did urine in clinic, will do 1hr gtt next visit per pt request [facility] 2024-07-16 10:54:25 Noted, pt will be 8w3d Eliane Jennings RN 07/16/2024 10:54 AM ERY Jennings RN [facility] 2024-07-16 10:47:08 Melany Corrigan is a 24 year old female New Ob LMP 05/21/ Confirmed through a clinic No prior care Appt 07/19 at 10[address]Y [address] [facility] 2024-06-28 12:06:32 Noted, pt will be 7w4d Eliane Jennings RN 06/28/2024 12:06 PM WINDING OPERATOR Eliane Jennings RN [facility] 2024-06-28 11:46:09 Melany Corrigan is a 23 year old female New OB LMP:05/21/2024 No previous care for this Dr. Ada ARAUJO WINDING OPERATOR Christiana Lerera [facility] 2021-01-19 11:16:00 [id number] [place] [address] PATIENT NAME: MELANY CORRIGAN ADMIT DATE: 01/18/21 ACCOUNT NO: [id number] ROOM NO: AGE: 20 REPORT TYPE: ECHOCARDIOGRAM SEX: F ADMITTING PHYSICIAN: ATTENDING PHYSICIAN:Moshe Trinh MD *[place] [address] Transthoracic Echocardiogram Patient: Melany Corrigan Study Date: 01/18/2021 BP: Location: [facility] URN: [id number] : 2000 Age: 20 Height: 64 in / 162.6 cm Gender: F Weight: 224.5 lb / 102.1 kg BMI/BSA: 38.6 kg/m 2 / 2.2 m 2 *Ordering Physician: * Moshe Trinh MD *Interpreting Physician: * Moshe Trinh MD *Thiokol Operator: * Yelitza Palmer RDCS, ANNIE Indications: Palpitations. Study data: Transthoracic echocardiogram. Procedure: Transthoracic echocardiography was performed. Images were obtained using a [employer] cardiac ultrasound machine. Image quality was adequate. M-mode, complete 2D, complete spectral Doppler, and color Doppler. Location: Echo laboratory. Patient status: Outpatient. Study status: Routine. Findings Left ventricle: The cavity size is normal. Wall thickness is normal. The estimated ejection fraction is 60-64%. Wall motion is normal; there are no regional wall motion abnormalities. The pulmonary vein flow pattern is normal. Left ventricular diastolic function parameters are normal for the patient's age. Right ventricle: The cavity size is normal. Systolic function is PATIENT NAME: MELANY CORRIGAN normal. Ventricular septum: The ventricular septum is normal. Left atrium: The atrium is normal in size. Right atrium: The atrium is normal in size. Atrial septum: No defect or patent foramen ovale is identified. Aorta: The aorta is normal. Aortic valve: The valve is trileaflet. The leaflets are normal thickness. There is no evidence of stenosis. There is no significant regurgitation. Mitral valve: The leaflets are normal thickness. There is no significant regurgitation. Tricuspid valve: Not well visualized. There is no significant regurgitation. Pulmonic valve: Not well visualized. There is no significant regurgitation. Pericardium: There is no pericardial effusion. No evidence of pleural fluid accumulation. Systemic veins: Inferior vena cava: The vessel is normal in size. Measurements Left ventricle Value Ref ALEXIA, LAX [...] LVOT Value Ref PATIENT NAME: MELANY CORRIGAN Diam, S 2.06 cm ------- Area 3.3 [...] cm 2 ------- Pulmonic valve Value Ref DC v, ED 0.83 m/sec ------- PATIENT NAME: KEV CORRIGANLEY Aortic root Value Ref Root diam, ED MM 2.57 cm ------- Conclusions Summary: Left ventricle: The cavity size is normal. Wall thickness is normal. The estimated ejection fraction is 60-64%. Wall motion is normal; there are no regional wall motion abnormalities. Left ventricular diastolic function parameters are normal for the patient's age. Prepared and electronically signed by Moshe Trinh MD 01/19/2021 11:15 at 1116 [facility]
[2024-09-22 00:37] LABS: PT Prothrombin Time 12.3 SECONDS (10-13.0); Protime INR 1.08
[2024-09-22 00:47] LABS: Absolute Lymphocytes (CBC) 0.6 K/uL (0.7-4.9); Absolute Monocytes 0.4 K/uL (0.1-1.3); Absolute Neutrophil 6.3 K/uL (1.8-8.0); Basophils % 0.3 % (0-1.3); Eosinophils % 0.1 % (0-4.4); Hematocrit 37.6 % (36.0-45.0); Hemoglobin 13.2 g/dL (12.0-15.0); MCH 30.9 pg (27.0-35.0); MCHC 35.1 g/dL (32.0-36.0); MCV 88.1 fL (80-100); MPV 7.5 fL (7.6-11.3); Monocytes % 5.7 % (3.3-12.3); Neutrophils % 85.9 % (41.7-73.7); Platelets 260 thou/uL (152-406); RBC Red Blood Cell Count 4.27 M/uL (3.86-4.86); Red Cell Distribution Width 14.2 % (12.1-15.2)
[2024-09-22 00:57] LABS: ALT/SGPT 26 U/L (13-56); AST/SGOT 20 U/L (15-37); Albumin/Globulin Ratio 0.8 (1.1-1.8); Alkaline Phosphatase 59 U/L (45-117); Anion Gap 13.3 mEq/L (5.0-15.0); BUN Blood Urea Nitrogen 6 mg/dL (7-18); Bicarbonate 21 mEq/L (21-32); Bilirubin Direct < 0.2 mg/dL (0-0.2); Bilirubin Indirect, Calculated 0.1 mg/dL (0.2-0.8); Bilirubin Total 0.3 mg/dL (0.2-1.0); Globulin 3.7 g/dL (2.3-3.5); Glomerular Filtration Rate 133 ml/min (=/>90); Glucose Level 101 mg/dL (74-106); HCG, Quantitative 18321 mIU/mL (1-3); NT PRO-BNP 36 pg/mL (<125); Potassium 3.3 mEq/L (3.5-5.1); Protein, Total 6.7 g/dL (6.4-8.2); Sodium Level 137 mEq/L (136-145)
[2024-09-22] MEDS ORDERED: ONDANSETRON 4 MG/2 ML VIAL ONE (01:01)
[2024-09-22] MEDS ORDERED: NA CHLORIDE 0.9% 50 ML ONE (01:02)
[2024-09-22] MEDS ORDERED: LABETALOL HCL 100 MG TAB ONE (01:02)
[2024-09-22] MEDS ORDERED: NA CHLORIDE 0.9% 1,000 ML ONE (01:02)
[2024-09-22] MEDS ORDERED: METOCLOPRAMIDE 10 MG/2mL INJ ONE (01:02)
[2024-09-22] MEDS ORDERED: FAMOTIDINE 20 MG/2 ML VIAL IV ONE (01:15)
[2024-09-22 02:01] LABS: Band Neutrophils 50 % (0-1); Blood Morphology Comment NOT SEEN (NOT SEEN); Differential Total Cells Count 100; Lymphocytes 12 % (15-42); Monocytes 5 % (0-10); Platelet Estimate ADEQ; Segmented Neutrophils 33 % (40-80)
--- NOTE | 2024-09-22 03:27 | EDPHYS ---
Physician Documentation [facility] Name: Melany Corrigan Age: 24 yrs Sex: Female : 2000 Arrival Date: 09/21/2024 Time: 21:53 Bed 12 Private MD: ED Physician Reynold Andrade HPI: 09/21 23:12 This 24 yrs old Female presents to ER via Unassigned with complaints of sp4 Nausea/Vomiting, High Blood Pressure, 16 wks . 09/22 23:20 EGA 16 weeks 4 days, -0-0-1 nausea vomiting elevated blood pressure. 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 - Infectious Disease History:: Denies. - Social history:: Smoking status: Patient denies any tobacco usage or history of. - Family history:: not pertinent. ROS: 09/22 23:20 Constitutional: Negative for fever, chills, and weight loss, positive nausea vomiting sp4 positive elevated blood pressure All other systems are negative, Exam: 23:20 Constitutional: This is a well developed, well nourished patient who is awake, alert, sp4 and in no acute distress. Head/Face: Normocephalic, atraumatic. Eyes: Pupils equal round and reactive to light, extra-ocular motions intact. Lids and lashes normal. Conjunctiva and sclera are not injected. Cornea within normal limits. Periorbital areas with no swelling, redness, or edema. ENT: Nares patent. No nasal discharge, no septal abnormalities noted. Tympanic membranes are normal and external auditory canals are clear. Oropharynx with no redness, swelling, or masses, exudates, or evidence of obstruction, uvula midline. Mucous membranes moist. Neck: Trachea midline, no thyromegaly or masses palpated, and no cervical lymphadenopathy. Supple, full range of motion without nuchal rigidity, or vertebral point tenderness. Chest/axilla: Normal chest wall appearance and motion. Nontender with no deformity. No lesions are appreciated. Cardiovascular: Regular rate and rhythm with a normal S1 and S2. No gallops, murmurs, or rubs. Normal PMI, no JVD. No pulse deficits. Respiratory: Lungs have equal breath sounds bilaterally, clear to auscultation and percussion. No rales, rhonchi or wheezes noted. No increased work of breathing, no retractions or nasal flaring. Abdomen/GI: Soft, with normal bowel sounds. No distension or tympany. No guarding or rebound. No evidence of tenderness throughout. Back: No spinal tenderness. No costovertebral tenderness. Skin: Warm, dry with normal turgor. Normal color with no rashes, no lesions, and no evidence of cellulitis. MS/ Extremity: Pulses equal, no cyanosis. Neurovascular intact. Full, normal range of motion. Neuro: Awake and alert, GCS 15, oriented to person, place, time, and situation. Cranial nerves II-XII grossly intact. Motor strength 5/5 in all extremities. Sensory grossly intact. Psych: Awake, alert, with orientation to person, place and time. Behavior, mood, and affect are within normal limits Vital Signs: 09/21 22:41 BP 150 / 93; Pulse 118; Resp 20; Temp 99.3; Pulse Ox 99% ; Weight 121.56 kg; Height 5 vc1 ft. 4 in. ; 09/22 03:44 BP 121 / 81; Pulse 101; Resp 18 S; Temp 98.7(O); Pulse Ox 99% on R/A; vc1 09/21 22:41 Body Mass Index 46.00 (121.56 kg, 162.56 cm) vc1 Agatha Coma Score: 23:20 Eye Response: spontaneous(4). Motor Response: obeys commands(6). Verbal Response: sp4 oriented(5). Total: 15. MDM: 09/21 23:13 Medical Screening Exam initiated sp4 09/22 23:20 Differential diagnosis: Nonspecific abd pain, gastritis, viral gastroenteritis, sp4 gastroenteritis. Data reviewed: vital signs, nurses notes, lab test result(s). Consideration of Admission/Observation Escalation of care including admission/observation considered. ED course: Patient improved. Stable for discharge home. 09/23 02:16 ED course: Stable for discharge home.. sp4 09/21 23:13 Order name: Basic Metabolic Panel; Complete Time: 01:23 sp4 09/21 23:13 Order name: CBC with Diff; Complete Time: 02:53 sp4 09/21 23:13 Order name: LFT's; Complete Time: 01:23 sp4 09/21 23:13 Order name: NT PRO-BNP; Complete Time: 01:23 sp4 09/21 23:13 Order name: PT-INR; Complete Time: 01:23 sp4 09/22 00:16 Order name: HCG, Quantitative; Complete Time: 01:23 EDMS 09/22 00:51 Order name: Manual Differential; Complete Time: 02:53 EDMS 09/21 23:13 Order name: EKG; Complete Time: 23:13 sp4 09/21 23:13 Order name: Cardiac monitoring; Complete Time: 01:10 sp4 09/21 23:13 Order name: EKG - Nurse/Tech; Complete Time: 00:04 sp4 09/21 23:13 Order name: IV Saline Lock; Complete Time: 00:04 sp4 09/21 23:13 Order name: Labs collected and sent; Complete Time: 00:04 sp4 09/21 23:13 Order name: O2 Per Protocol; Complete Time: 01:04 sp4 09/21 23:13 Order name: O2 Sat Monitoring; Complete Time: 01:10 sp4 Administered Medications: 09/22 01:25 Drug: NS 0.9% IV 1000 ml IV at 1 bolus Per protocol; to be given as a bolus over 60 vc1 minutes Route: IV; Rate: 1 bolus; Site: right antecubital; 03:46 Follow up: Response: No adverse reaction; IV Status: Completed infusion; IV Intake: vc1 1000ml 01:25 Drug: Ondansetron IVP 8 mg IVP once; over 2 minutes Route: IVP; Site: right antecubital;vc1 03:45 Follow up: Response: No adverse reaction vc1 01:25 Drug: Labetalol PO 200 mg PO once Route: PO; vc1 03:45 Follow up: Response: No adverse reaction vc1 01:26 Drug: metoCLOPramide IVP 10 mg IVP once; over 1 to 2 minutes Route: IVP; Site: right vc1 antecubital; 03:45 Follow up: Response: No adverse reaction vc1 Disposition Summary: 09/22/24 03:26 Discharge Ordered Notes: Location: Home sp4 Problem: new sp4 Symptoms: have improved sp4 Condition: Stable sp4 Diagnosis - Hyperemesis gravidarum, Acute nausea and vomiting sp4 Followup: sp4 - With: Private Physician - When: 7 - 10 days - Reason: Recheck today's complaints Discharge Instructions: - Discharge Summary Sheet sp4 - Hyperemesis Gravidarum sp4 Forms: - Patient Portal Instructions sp4 Prescriptions: - ondansetron 4 mg Oral Tablet,disintegrating - take 1 tablet ORAL route every 6 hours for 10 days; 30 tablet; Refills: 0, sp4 Product Selection Permitted Addendum: 09/25/2024 19:23 Addendum: EKG at 2354 09/21/2024 ventricular rate 107 sinus tachycardia at the rate of s p4 107 otherwise normal EKG. No ectopy, normal intervals, no ST elevation or depression, no acute ischemic changes.. Signatures: Dispatcher [employer] EDYuly Blair RN RN vc1 Reynold Andrade MD MD sp4 Corrections: (The following items were deleted from the chart) 09/21 23:13 23:13 BASIC METABOLIC PANEL+C.LAB.BRZ ordered. EDMS EDMS 23:13 23:13 CBC+H.LAB.BRZ ordered. EDMS EDMS 23:13 23:13 HEPATIC FUNCTION+C.LAB.BRZ ordered. EDMS EDMS 23:13 23:13 PROBNP+C.LAB.BRZ ordered. EDMS EDMS 23:13 23:13 PROTIME (+INR)+COAG.LAB.BRZ ordered. EDMS EDMS 09/22 00:15 09/21 23:32 QUANTITATIVE HCG+C.LAB.BRZ ordered. EDMS EDMS
--- NOTE | 2024-09-22 03:27 | ER ---
Nurse's Notes [facility] Name: Melany Corrigan Age: 24 yrs Sex: Female : 2000 Arrival Date: 09/21/2024 Time: 21:53 Bed 12 Private MD: Diagnosis: Hyperemesis gravidarum, Acute nausea and vomiting Presentation: 09/21 22:41 Chief complaint: Patient states: 16 weeks been vomiting since 0200 with lower vc1 abdominal pain that worsens with vomiting. 22:41 Coronavirus screen: Client denies travel out of the [place] in the last 14 days. At this vc1 time, the client does not indicate any symptoms associated with coronavirus-19. Ebola Screen: Patient negative for fever greater than or equal to 101.5 degrees Fahrenheit, and additional compatible Ebola Virus Disease symptoms Patient denies exposure to infectious person. Patient denies travel to an Ebola-affected area in the 21 days before illness onset. No symptoms or risks identified at this time. Initial Sepsis Screen: Does the patient meet any 2 criteria? No. Patient's initial sepsis screen is negative. Does the patient have a suspected source of infection? No. Patient's initial sepsis screen is negative. Risk Assessment: Do you want to hurt yourself or someone else? Patient reports no desire to harm self or others. Onset of symptoms was September 21, 2024 at 02:00. 22:41 Method Of Arrival: Ambulatory vc1 22:41 Acuity: JAVIER 3 vc1 Triage Assessment: 22:00 General: Appears in no apparent distress. uncomfortable, ill, obese, well groomed, well vc1 developed, well nourished, Behavior is calm, cooperative, appropriate for age. Pain: Denies pain. EENT: No deficits noted. No signs and/or symptoms were reported regarding the EENT system. Neuro: Level of Consciousness is awake, alert, obeys commands, Oriented to person, place, time, situation, none. Cardiovascular: Capillary refill < 3 seconds Patient's skin is warm and dry. Respiratory: Airway is patent Respiratory effort is even, unlabored, Respiratory pattern is regular, symmetrical, Breath sounds are clear bilaterally. GI: Reports indigestion, intolerance of fluids, intolerance of food, vomiting. 22:00 : No deficits noted. No signs and/or symptoms were reported regarding the vc1 genitourinary system. Derm: Skin is intact, is healthy with good turgor, Skin is dry, Skin is normal, Skin temperature is warm. Musculoskeletal: Circulation, motion, and sensation intact. Range of motion: intact in all extremities. 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 - Infectious Disease History:: Denies. - Social history:: Smoking status: Patient denies any tobacco usage or history of. - Family history:: not pertinent. Screenin:41 [facility] ED Fall Risk Assessment (Adult) History of falling in the last 3 months, vc1 including since admission No falls in past 3 months (0 pts) Confusion or Disorientation No (0 pts) Intoxicated or Sedated No (0 pts) Impaired Gait No (0 pts) Mobility Assist Device Used No (0 pt) Altered Elimination No (0 pt) Score/Fall Risk Level 0 - 2 = Low Risk Oriented to surroundings, Maintained a safe environment, Educated pt \T\ family on fall prevention, incl call for assistance when getting out of bed. Abuse screen: Denies threats or abuse. Nutritional screening: No deficits noted. Tuberculosis screening: No symptoms or risk factors identified. Assessment: 22:41 General: see triage assessment. vc1 22:41 GI: No deficits noted. vc1 Vital Signs: 22:41 BP 150 / 93; Pulse 118; Resp 20; Temp 99.3; Pulse Ox 99% ; Weight 121.56 kg; Height 5 vc1 ft. 4 in. ; 09/22 03:44 BP 121 / 81; Pulse 101; Resp 18 S; Temp 98.7(O); Pulse Ox 99% on R/A; vc1 18 22:41 Body Mass Index 46.00 (121.56 kg, 162.56 cm) vc1 Agatha Coma Score: 23:20 Eye Response: spontaneous(4). Motor Response: obeys commands(6). Verbal Response: sp4 oriented(5). Total: 15. ED Course: 09/21 21:56 Patient arrived in ED. [id number] 22:41 Door closed. Noise minimized. Warm blanket given. Pillow given. vc1 22:45 Arm band placed on right wrist. vc1 23:12 Reynold Andrade MD is Attending Physician. sp4 09/22 00:04 Basic Metabolic Panel Sent. vk 00:04 CBC with Diff Sent. vk 00:04 LFT's Sent. vk 00:04 NT PRO-BNP Sent. vk 00:04 PT-INR Sent. vk 00:04 Initial lab(s) drawn, by me, sent to lab. EKG done, by ED staff. Inserted saline lock: vk 20 gauge in right antecubital area, using aseptic technique. Blood collected. Flushed with 10 mL NS. 00:32 Triage completed. vc1 01:10 CBC with Diff Sent. vk 01:26 Patient has correct armband on for positive identification. Bed in low position. Call vc1 light in reach. Provided Education on: nausea meds. Pulse ox on. NIBP on. 03:44 No provider procedures requiring assistance completed. IV discontinued, intact, vc1 bleeding controlled, No redness/swelling at site. Pressure dressing applied. Administered Medications: 01:25 Drug: NS 0.9% IV 1000 ml IV at 1 bolus Per protocol; to be given as a bolus over 60 vc1 minutes Route: IV; Rate: 1 bolus; Site: right antecubital; 03:46 Follow up: Response: No adverse reaction; IV Status: Completed infusion; IV Intake: vc1 1000ml 01:25 Drug: Ondansetron IVP 8 mg IVP once; over 2 minutes Route: IVP; Site: right antecubital;vc1 03:45 Follow up: Response: No adverse reaction vc1 01:25 Drug: Labetalol PO 200 mg PO once Route: PO; vc1 03:45 Follow up: Response: No adverse reaction vc1 01:26 Drug: metoCLOPramide IVP 10 mg IVP once; over 1 to 2 minutes Route: IVP; Site: right vc1 antecubital; 03:45 Follow up: Response: No adverse reaction vc1 Medication: 01:27 VIS not applicable for this client. vc1 Intake: 03:46 IV: 1000ml; Total: 1000ml. vc1 Outcome: 03:26 Discharge ordered by . sp4 03:44 Discharged to home ambulatory, vc1 03:44 Condition: stable 03:44 Discharge instructions given to patient, Instructed on discharge instructions, follow up and referral plans. medication usage, Demonstrated understanding of instructions, follow-up care, medications, Prescriptions given X 1, 03:47 Patient left the ED. vc1 Signatures: Meena Doan [email or web address] Yuly Carranza RN RN vc1 Reynold Andrade MD MD sp4 Vivienne Hoskins
[2024-09-22 11:56] VITALS: O2SAT 99
[2024-09-22 12:02] VITALS: BP 121/81; TEMP 98.7
--- NOTE | 2024-09-22 12:27 | EKG ---
Test Date: 2024-09-21 Test Time: 23:54:44 Senior Engineering Associate: SINDHU MEASUREMENT RESULTS: Intervals: Rate: 107 WI: 138 QRSD: 82 QT: 340 QTc: 453 [place]: P: 45 WI: 138 QRS: 52 T: 24 INTERPRETIVE STATEMENTS: Sinus tachycardia Cannot rule out Anterior infarct, age undetermined Abnormal ECG Compared to ECG 10/10/2020 18:17:44 Myocardial infarct finding now present Sinus rhythm no longer present Short WI interval no longer present Electronically Signed On 09-22-24 12:25:03 CDT by Abdirizak [place]
== END 2024-09-22 03:47 | disposition home or self-care (01) ==
LOC: ER 21:53
DX: O21.0 Mild hyperemesis gravidarum (principal); Z3A.16 16 weeks gestation of pregnancy
CPT/HCPCS: 96361; 93005; 85025; 80048; 36415; 85610; 80076; 84702; 83880; 96375; 96374; 99285; J2765; J2405; J7030